=== PATIENT | male | born 1955 | race Caucasian/White ===

== ENCOUNTER 2018-04-03 14:02 | Emergency (ER) | payer OTHER, SELFPAY ==
[2018-04-03 14:08] VITALS: BP 158/97; PULSE 92; RESP 24; TEMP 37.3; O2SAT 94; BMI 24.5
[2018-04-03 14:15] VITALS: BP 191/101; PULSE 90
[2018-04-03] MEDS: NITROGLYCERIN 0.4 MG SL TAB SL (14:15)
--- NOTE | 2018-04-03 14:22 | DI.RAD.S_ITS ---
PROCEDURE: XR CHEST 1V INDICATIONS: chest pain TECHNIQUE: One view of the chest was acquired. COMPARISON: [facility], CHEST 1 VIEW, 03/21/2017, 17:07. [facility], , CHEST 2 VIEW, 07/23/2016, 12:29. FINDINGS: Surgical changes and devices: None. Lungs and pleura: No pleural effusions or pneumothorax. Lungs are clear. Mediastinum: Mediastinal contours appear normal. Heart size is normal. Bones and chest wall: No suspicious bony lesions. Overlying soft tissues appear unremarkable. IMPRESSION: Normal for age, source of current pain is not seen. Prior acromioplasty right shoulder. Prior tendon transfer Bostic right shoulder. Dictated by: Cipriano Gr M.D. on 04/03/2018 at 14:35 Approved by: Cipriano Gr M.D. on 04/03/2018 at 14:43
--- NOTE | 2018-04-03 14:27 | ED_ITS ---
HPI - Chest Pain General Chief Complaint: Chest Pain Stated Complaint: neck pain, affecting arms, cant breathe Time Seen by Provider: 04/03/18 14:21 Source: patient Mode of arrival: ambulatory Limitations: no limitations History of Present Illness HPI narrative: 63-year-old male here for evaluation of chest pain and back pain. Patient states that it started sometime this morning. He is unable to state when it actually started. Is having some shortness of breath. States the pain is in his upper back. Not radiating to his shoulders. Some nausea but no vomiting. Has not tried anything for prior to arrival. No history of cardiac disease. Related Data Home Medications Medication Instructions Recorded Confirmed atorvastatin [Lipitor] 20 mg PO HS #0 03/21/17 flecainide 100 mg PO BID #0 03/21/17 gabapentin [Neurontin] 300 mg PO Q DAY #0 03/21/17 gabapentin [Neurontin] 600 mg PO QPM #0 03/21/17 lisinopril-hydrochlorothiazide 1 tab PO QDAY #0 03/21/17 Allergies Allergy/AdvReac Type Severity Reaction Status Date / Time No Known Drug Allergies Allergy Verified 04/03/18 14:14 Review of Systems Review of Systems All systems reviewed & are unremarkable except as noted in HPI and below Constitutional Denies fever(s) and Denies malaise Cardiovascular Reports chest pain, Denies rapid heart rate, Denies palpitations and Reports dyspnea Respiratory Denies cough and Reports dyspnea Gastrointestinal Gastrointestinal: Denies abdominal pain, Reports nausea and Denies vomiting Genitourinary Denies dysuria Musculoskeletal Reports back pain, Denies myalgias and Denies arthralgias Integumentary/Breasts Denies lesions and Denies rash Endocrine Denies palpitations Hematologic/Lymphatic Denies easy bleeding and Denies easy bruising [facility] Medical History Atrial flutter (Acute) Surgical History No pertinent past surgical history (Acute) Social History Smoking Status: Current every day smoker Exam Initial Vital Signs Initial Vital Signs: Vital Signs Temperature 99.2 F 04/03/18 14:08 Pulse Rate 92 H 04/03/18 14:08 Respiratory Rate 24 04/03/18 14:08 Blood Pressure 158/97 H 04/03/18 14:08 Pulse Oximetry 94 04/03/18 14:08 Const General: cooperative and comfortable HENMT Head: normal to inspection and normocephalic Eyes Pupils: PERRL Resp Effort & Inspection: normal respiratory effort Auscultation: clear to auscultation bilaterally Cardio Rate: regular rate Rhythm: regular rhythm Pulses: radial pulses present bilaterally GI Inspection: non-distended Palpation: soft and No firm Back/Spine/Pelvis Back: No CVA tenderness Skin Lesions: no lesions Rashes: no rashes Neuro General: alert, awake and oriented x3 Extrem General: normal to inspection and capillary refill normal Psych Appearance: grossly normal and well kempt Course Orders Ordered: ED Orders 04/03/18 14:22 XR chest 1V Stat 04/03/18 14:23 EKG-12 Lead Stat 04/03/18 14:25 Complete Blood Count AUTO DIFF Stat Comprehensive Metabolic Panel Stat Partial Thromboplastin Time Stat Prothrombin Time INR Stat Troponin I Stat 04/03/18 14:43 CT angio chest abdomen Stat Heparin Sodium/Dextrose (Heparin Drip) 25,000 unit in 500 mls @ 42 mls/hr IV CONT MEHDI; Protocol Discontinued Medications Aspirin (Aspirin Chew) 324 mg PO NOW ONE Stop: 04/03/18 14:23 Last Admin: 04/03/18 14:43 Dose: 324 mg Heparin Sodium (Porcine) (Heparin) 10,500 unit 60 unit/kg (21372 unit) IV NOW ONE Stop: 04/03/18 14:47 Hydromorphone HCl (Dilaudid) 1 mg IV NOW ONE Stop: 04/03/18 14:31 Last Admin: 04/03/18 14:30 Dose: 1 mg Nitroglycerin (Nitrostat) 0.4 mg SL NOW ONE Stop: 04/03/18 14:43 Last Admin: 04/03/18 14:15 Dose: 0.4 mg Vital Signs - 8 hr 04/03/18 14:08 04/03/18 14:15 Temperature 99.2 F Pulse Rate 92 H 90 Respiratory Rate 24 Blood Pressure 158/97 H 191/101 H Pulse Oximetry 94 MDM - Chest Pain Lab Data Result diagrams: 04/03/18 14:25 04/03/18 14:25 Lab Results 04/03/18 04/03/18 Range/Units 14:25 14:25 PT 12.4 (10.1-12.7) SECONDS INR 1.1 (0.9-1.3) Sodium 141 (137-145) mmol/L Potassium 3.9 (3.4-5.1) mmol/L Chloride 102 (98-107) mmol/L Carbon Dioxide 28 (22-32) mmol/L BUN 24 H (9-20) mg/dL Creatinine 0.80 (0.66-1.25) mg/dL Estimated GFR > 60.0 (>60) mL/min BUN/Creatinine Ratio 30.0 H (6-22) Glucose 156 H (80-110) mg/dL Calcium 9.6 (8.4-10.2) mg/dL Total Bilirubin 0.6 (0.2-1.3) mg/dL AST 21 (17-59) IU/L ALT 24 (21-72) IU/L Alkaline Phosphatase 87 (38-126) U/L Total Protein 8.0 (6.3-8.2) g/dL Albumin 4.5 (3.5-5.0) g/dL Globulin 3.5 (1.7-4.1) g/dL Albumin/Globulin Ratio 1.3 (1.0-2.8) Imaging Data Chest x-ray: Attestation: I personally reviewed and interpreted this imaging study as follows: My impression: no wide mediastinum No focal consolidation Core Measures AMI core measures followed: Yes MDM Narrative Medical decision making narrative: patient with ST elevations in leads V2 V3 and V4 and T-wave inversions in lead 1 and AVF. Chest x-ray is unremarkable. Has equal bilateral blood pressures. Because of his upper back pain he was scanned for a thoracic aortic dissection. Wet read of this with the radiologist states that he does not have a dissection. He was given Dilaudid. Patient was also given aspirin. Patient was given 1 sublingual nitro. nitropaste was placed.Heparin was also started. Discussed the case with Dr Kate zamudio With a ST elevation VT activation. EKGs were faxed over to receiving facility. Patient was informed of transfer. He expressed understanding and agreement plan. Discharge Plan Departure Patient Disposition: [facility] Clinical Impression: ST elevation (STEMI) myocardial infarction Prescriptions: No Action atorvastatin [Lipitor] 20 MG tablet 20 mg PO HS Qty: 0 RF: 0 lisinopril-hydrochlorothiazide 20 MG/25 MG tablet 1 tab PO QDAY Qty: 0 RF: 0 flecainide 100 MG tablet 100 mg PO BID Qty: 0 RF: 0 gabapentin [Neurontin] 300 MG capsule 300 mg PO Q DAY Qty: 0 RF: 0 gabapentin [Neurontin] 300 MG capsule 600 mg PO QPM Qty: 0 RF: 0
[2018-04-03 14:30] VITALS: BP 161/92; PULSE 92; RESP 20; O2SAT 98
[2018-04-03] MEDS: HYDROMORPHONE 1 MG INJ IV (14:30)
[2018-04-03 14:43] LABS: INR 1.1 (0.9-1.3); Prothrombin Time 12.4 SECONDS (10.1-12.7)
[2018-04-03] MEDS: ASPIRIN 81 MG TAB 324 MG PO (14:43)
--- NOTE | 2018-04-03 14:43 | DI.CT.S_ITS ---
PROCEDURE: CT ANGIO CHEST ABDOMEN INDICATIONS: concern for TAD TECHNIQUE: Precontrast 5 mm thick sections acquired from the lung apices to the iliac crests. After the administration of intravenous contrast, 2.5 mm thick sections again acquired from the lung apices to the iliac crests. 10 mm maximum intensity projection (MIP) oblique sagittal and coronal reformats were then acquired. For radiation dose reduction, the following was used: automated exposure control. COMPARISON: None. FINDINGS: Image quality: Excellent. AORTA: Intramural hematoma: Absent. Maximum hematoma thickness: Not applicable. Focal contrast enhancement: Intramural blood pool (< 2 mm neck or imperceptible communication with aortic lumen): Absent. Ulcer-like projection (broad communication with aortic lumen > 3 mm): Absent. Dissection: Absent. Mau classification: Not applicable. Maximum aortic diameter: 3.7 cm. [If [place] A dissection, > 5.0 cm has a poorer prognosis. If [place] B dissection, > 4.0 cm has a poorer prognosis.] Periaortic hematoma: Absent. CHEST: Lungs and pleura: No acute airspace opacities. Calcified granulomas noted in the right upper lobe. No pleural effusions or pneumothorax. Central and peripheral airways are patent and normal in caliber. Mediastinum: Heart size is normal. No pericardial effusion. No mediastinal or hilar adenopathy by size criteria. Calcified right hilar lymph nodes noted compatible sequela prior granulomatous disease. Central pulmonary arteries are normal in size. Esophagus is normal in caliber. No hiatal hernias. Bones and chest wall: No axillary adenopathy by size criteria. Thyroid gland is within normal limits. No suspicious bony lesions. No vertebral body compression fractures. ABDOMEN: Vasculature: Celiac trunk and mesenteric arteries are patent. Renal arteries are also patent. Solid organs: Liver is normal in size and enhancement. Gallbladder is within normal limits. Biliary system is non dilated. Pancreas enhances normally. Spleen is normal in size and enhancement. Punctate calcifications are noted in the spleen compatible sequela prior granulomatous disease. No adrenal nodules. Both kidneys are normal in size and enhancement, without hydronephrosis. Peritoneum and bowel: No free fluid or air. Bowel loops are normal in caliber and wall thickness. Nodes and vessels: No retroperitoneal or mesenteric adenopathy by size criteria. Inferior vena cava is normal in morphology. Bones: No suspicious bony lesions. No vertebral body compression fractures. Miscellaneous: No ventral hernias. IMPRESSION: 1. No aortic dissection or aortic aneurysm. 2. Central pulmonary vasculature enhances normally with no evidence of large central pulmonary embolus. 3. No lung consolidation. No pleural effusions. Dictated by: Melissa Castillo MD, PhD on 04/03/2018 at 14:44 Approved by: Melissa Castillo MD, PhD on 04/03/2018 at 14:54
[2018-04-03 14:45] VITALS: BP 147/88; PULSE 89; RESP 16; O2SAT 92
[2018-04-03 14:45] LABS: PTT Partial Thromboplastin Tim 35 SECONDS (26.4-36.2)
[2018-04-03 14:48] LABS: Add Manual Diff / Slide Review NO; Basophils Percent Auto 0.8 % (0-2); Eosinophils Percent Auto 1.7 % (2-4); Hematocrit 52.2 % (41-53); Hemoglobin 17.8 g/dL (13.5-17.5); Lymphocytes Percent Auto 11.7 % (25-40); Mean Corpuscular Hemoglobin 31.3 PG (26-34); Mean Corpuscular Volume 92.1 fL (80-100); Monocytes Percent Auto 7.3 % (3-14); Neutrophils Absolute Auto 10200 /uL (3000-5900); Neutrophils Percent Auto 78.5 % (50-75); Platelet Count 259 X10^3/uL (150-400); Red Blood Cell Count 5.67 X10^6/uL (4.5-5.9); Red Cell Distribution Width 13.9 % (11.6-14.8)
[2018-04-03 14:49] LABS: Alanine Aminotransferase 24 IU/L (21-72); Albumin 4.5 g/dL (3.5-5.0); Albumin Globulin Ratio 1.3 (1.0-2.8); Alkaline Phosphatase 87 U/L (38-126); Aspartate Aminotransferase 21 IU/L (17-59); Bilirubin Total 0.6 mg/dL (0.2-1.3); Blood Urea Nitrogen 24 mg/dL (9-20); Calcium 9.6 mg/dL (8.4-10.2); Carbon Dioxide 28 mmol/L (22-32); Chloride 102 mmol/L (98-107); Estimated Glomerular Filt Rate > 60.0 mL/min (>60); Globulin 3.5 g/dL (1.7-4.1); Glucose 156 mg/dL (80-110); HEMOLYSIS 24 (0-50); Potassium 3.9 mmol/L (3.4-5.1); Sodium 141 mmol/L (137-145)
[2018-04-03] MEDS: HEPARIN 5,000 UNIT/ML VIAL 10500 UNIT IV (14:51)
[2018-04-03] MEDS: HEPARIN DRIP 25,000 UNIT/500 ML IV.SOLN 20 UNIT IV (14:52)
[2018-04-03 14:55] VITALS: PULSE 90; RESP 18
[2018-04-03 14:57] VITALS: BP 141/80; PULSE 90
[2018-04-03] MEDS: NITROGLYCERIN OINT 1 INCH/GM OINT...G. TOP (14:57)
[2018-04-03 15:00] LABS: Troponin I < 0.012 ng/mL (0.01-0.034)
== END 2018-04-03 14:52 | disposition short-term general hospital (02) ==
PROVIDERS: Emergency Provider Emergency Medicine; PCP Family Medicine
DX: I21.3 ST elevation (STEMI) myocardial infarction of unspecified site (principal)
CPT/HCPCS: 36591; 71045; 71275; 74175; 80053; 84484; 85025; 85610; 85730; 93005; 93010; 96374; 96375; 99283; 99291; J1170; J1644; Q9967

== ENCOUNTER → 2018-05-03 16:42 | Outpatient (CLI) | payer OTHER, SELFPAY ==
--- NOTE | 2018-05-03 | DI.MRI.S_ITS ---
PROCEDURE: MR CERVICAL SPINE WO CON INDICATIONS: Neck and bilateral shoulder pain. Loss of feeling in right hand TECHNIQUE: Noncontrast sagittal T1 spin echo and T2 fast spin echo, sagittal STIR, foraminal oblique sagittal T2 fast spin echo, and axial gradient echo or T2 fast spin echo through the cervical spine. COMPARISON: None. FINDINGS: Image quality: Excellent. Alignment and Curvature: There is normal bony alignment. Bone Marrow: Marrow demonstrates normal overall signal. Moderate reactive signal within the endplates adjacent to the C5-C6 and C6-C7 intervertebral discs. Spinal Cord: Visualized spinal cord has normal size and signal. No cerebellar tonsillar herniation. Paraspinous Soft Tissues: No paravertebral masses. Prevertebral soft tissues are normal in thickness. C2-C3: Moderate disc desiccation. Mild diffuse disc bulge. Mild bilateral facet hypertrophy. Mild canal stenosis. No foraminal stenosis. No change. C3-C4: Moderate disc desiccation. Mild diffuse disc bulge. Mild facet and uncovertebral hypertrophy. Mild canal stenosis. Mild bilateral foraminal stenosis. C4-C5: Moderate disc desiccation. Mild diffuse disc bulge. Mild facet and uncovertebral hypertrophy bilaterally. Mild canal stenosis. Mild right and moderate left foraminal stenosis. C5-C6: Severe disc height loss and desiccation. Moderate diffuse disc bulge/osteophyte. Moderate bilateral facet and uncovertebral hypertrophy, right greater than left. Moderate canal stenosis. Severe right and mild left foraminal stenosis. C6-C7: Severe disc height loss and desiccation. Moderate diffuse disc bulge/osteophyte. Mild bilateral facet and uncovertebral hypertrophy. Moderate canal stenosis. Mild right and moderate left foraminal stenosis. C7-T1: Mild disc height loss and desiccation. Mild diffuse disc bulge. Mild bilateral facet and uncovertebral hypertrophy. Mild canal stenosis. Mild bilateral foraminal stenosis. IMPRESSION: 1. Multilevel degenerative disc and facet disease, as well as uncovertebral hypertrophy. 2. Multilevel canal stenoses, worst at C4-C5 and C5-C6, where there are moderate canal stenoses present. 3. Multilevel foraminal stenoses, worst at C5-C6 on the right, where there is severe foraminal stenosis present. Dictated by: Ankur Altman M.D. on 05/04/2018 at 9:41 Approved by: Ankur Altman M.D. on 05/04/2018 at 9:50
== END ==
PROVIDERS: PCP Family Medicine; Visit Provider Orthopaedic Surgery
DX: M25.512 Pain in left shoulder (principal); M25.511 Pain in right shoulder; R20.0 Anesthesia of skin; M50.31 Other cervical disc degeneration, high cervical region; M48.02 Spinal stenosis, cervical region
CPT/HCPCS: 72141

== ENCOUNTER → 2018-06-12 09:36 | Outpatient (CLI) | payer OTHER, SELFPAY ==
[2018-06-12 11:26] LABS: Hematocrit 52.9 % (41-53); Hemoglobin 18.1 g/dL (13.5-17.5); Mean Corpuscular HGB Conc 34.2 % (30-36); Mean Corpuscular Hemoglobin 31.6 PG (26-34); Mean Corpuscular Volume 92.4 fL (80-100); Platelet Count 205 X10^3/uL (150-400); Red Blood Cell Count 5.72 X10^6/uL (4.5-5.9); Red Cell Distribution Width 14.5 % (11.6-14.8); White Blood Cell Count 12.7 X10^3/uL (4.5-11.0)
[2018-06-12 12:00] LABS: Blood Urea Nitrogen 39 mg/dL (9-20); Calcium 9.3 mg/dL (8.4-10.2); Carbon Dioxide 28 mmol/L (22-32); Chloride 98 mmol/L (98-107); Estimated Glomerular Filt Rate > 60.0 mL/min (>60); Glucose 110 mg/dL (80-110); HEMOLYSIS 25 (0-50); Potassium 4.2 mmol/L (3.4-5.1); Sodium 142 mmol/L (137-145)
== END ==
PROVIDERS: PCP Family Medicine; Visit Provider Orthopaedic Surgery
DX: Z01.818 Encounter for other preprocedural examination (principal)
CPT/HCPCS: 36415; 80048; 85027

== ENCOUNTER → 2018-06-19 16:35 | Outpatient (CLI) | payer OTHER, SELFPAY ==
[2018-06-19 17:19] LABS: Add Manual Diff / Slide Review NO; Basophils Percent Auto 1.4 % (0-2); Eosinophils Percent Auto 2.8 % (2-4); Hematocrit 50.2 % (41-53); Hemoglobin 16.9 g/dL (13.5-17.5); Lymphocytes Percent Auto 17.8 % (25-40); Mean Corpuscular HGB Conc 33.6 % (30-36); Mean Corpuscular Hemoglobin 31.1 PG (26-34); Mean Corpuscular Volume 92.5 fL (80-100); Monocytes Percent Auto 6.5 % (3-14); Neutrophils Absolute Auto 8900 /uL (1500-7000); Neutrophils Percent Auto 71.5 % (50-75); Platelet Count 220 X10^3/uL (150-400); Red Blood Cell Count 5.43 X10^6/uL (4.5-5.9); Red Cell Distribution Width 14.3 % (11.6-14.8); White Blood Cell Count 12.5 X10^3/uL (4.5-11.0)
== END ==
PROVIDERS: PCP Family Medicine; Visit Provider Orthopaedic Surgery
DX: Z01.818 Encounter for other preprocedural examination (principal)
CPT/HCPCS: 36415; 85025

== ENCOUNTER 2018-06-27 12:30 | Day surgery (SDC) | payer OTHER, SELFPAY ==
[2018-06-22 12:07] VITALS: BMI 25.2
[2018-06-27] VITALS (20 sets, daily range): BP systolic 142–194; BP diastolic 76–115; PULSE 62–74; RESP 12–18; TEMP 36.4–36.7; O2SAT 94–100; BMI 23.2
--- NOTE | 2018-06-27 | DI.RAD.S_ITS ---
PROCEDURE: XR CERVICAL SPINE 2V OR 3V INDICATIONS: ACDF C5-6, C6-7 TECHNIQUE: Fluoroscopic images were obtained during an operative procedure and submitted for interpretation following the completion of the procedure. COMPARISON: [facility], , MR CERVICAL SPINE WO CON, 05/03/2018, 17:28. FINDINGS: These fluoroscopic images were performed for intraoperative localization. On these images, artificial discs have been placed at the C5-C6 and C6-C7 levels. Please correlate with intraoperative findings. IMPRESSION: Normal intraoperative examination. Dictated by: Kamlesh Akers M.D. on 06/27/2018 at 16:48 Approved by: Kamlesh Akers M.D. on 06/27/2018 at 16:48
[2018-06-27] MEDS: LACTATED RINGERS 1,000 ML 42 ML IV ×2 (13:25→16:48)
--- NOTE | 2018-06-27 14:52 | PM.PREOP ---
Pre-operative Note Interval Note History & Physical reviewed/Exam performed by Physician: Yes Changes to H&P: No
--- NOTE | 2018-06-27 15:22 | SUR.PREOP ---
Pre-op glucose by GASOLINE PUMP INSTALLER 56 (confirmed by RN); Reported to anesthesia. Verbal order given for D50, stated he would enter it into the computer. D50 obtained to pharmacy, sent to OR with the patient per the request of the circulating RN (Rx arrived as she was taking the patient to the OR). Patient remains awake, oriented, stable on feet when he recently ambulated to the bathroom.
[2018-06-27] MEDS: CEFAZOLIN 2 GM/100 ML FROZ.PIGGY IV ×2 (15:25→22:27)
--- NOTE | 2018-06-27 15:25 | PM.OP.1 ---
Operative Date/Time/Diagnoses Date of procedure: 06/27/18 Time of procedure: 17:00 Pre-op diagnosis: Cervical disc herniation with radiculopathy Post-op diagnosis: same Procedure & Clinicians Procedure: C5-6 and C6-7 anterior diskectomy an artificial disc replacement Use of microscope Same procedure as scheduled: Yes Indications: [age] year old male with intractable pain from cervical disc herniations. They had failed conservative management and requested operative intervention. Risks and benefits of surgery were discussed and appropriate consents were obtained. Chip Applying Machine Tender: Lala Hogan Anesthesia Type: General Operative Notes Findings: None Closure Type: primary Specimen(s): none sent Implants & Drains: [place] Mobi-C artificial disc replacement Estimated Blood Loss (mL): 5 Procedure in detail: Patient was brought to the operating room and intubated on the table. A time-out was performed. Preoperative antibiotics were given. The neck was prepped and draped in the standard sterile fashion. Using a skin fold, we made a 3 cm oblique incision on the left side. We used Bovie to go through the platysma and then did a standard anterolateral blunt dissection down to the precervical fascia. Fascia was nicked and elevated up. A marker was placed and x-ray was taken for localization. We then subperiosteally elevated up the longus colli muscles. Self-retaining retractors were placed. Woodbridge pins were placed under x-ray guidance to be parallel to the endplates. We then brought in the microscope. A scalpel used to perform an annulotomy. We then used a combination of pituitaries and curettes and Kerrison to perform a complete anterior diskectomy at C6-7. We took down the PLL and used Kerrison to remove any posterior disc material and osteophytes. At the end we could from the nerve hook cephalad caudally and out the foramen and everything was opened. We distracted open with the parallel log manager. We then used the horseshoes for sizing. We then used the trials. We then inserted a 15 mm x 17 mm x 5 mm size Mobi-C artificial disc replacement under fluoroscopic guidance for positioning. The traction was released and x-ray was checked again. The counselling psychologist was removed. We then moved up to C5-6 and placed our Woodbridge pins under x-ray guidance. We again performed a complete diskectomy with Kerrisons, pituitaries, curets. We took down the PLL. We then trialed and placed another 15 mm x 17 mm x 5 mm Mobi-C artificial disc replacement, this time at C5-6. We confirmed positioning with fluoroscopy. The traction was released and x-rays were taken. The self-retaining retractors and Woodbridge pins were removed and final x-rays taken. The wound was irrigated. There was no bleeding. The carotid was beating nicely. The platysma was closed. The superficial was closed. The skin was closed. A sterile dressing was placed. They were then extubated and brought to recovery room with no complications. Complications: none Condition: stable Disposition: PACU Plan for aftercare: Overnight admission. Discharge tomorrow.
--- NOTE | 2018-06-27 15:57 | SUR.OPER ---
Supine on padded OR bed, head on gel, towel roll between shoulders, arms wrapped in gel pads and secured with draw sheet; legs uncrossed, safety belt at thigh, tape over blanket over lower legs.
[2018-06-27] MEDS: SODIUM CHLORIDE 0.9% 1,000 ML, GENTAMICIN 80 MG IRR (16:09)
[2018-06-27] MEDS: THROMBIN (BOVINE) 5,000 UNIT VIAL 5000 UNIT TOP (16:13)
[2018-06-27] MEDS: HYDROMORPHONE 2 MG INJ 0.5 MG IV ×8 (17:28→18:29)
[2018-06-27] MEDS: HYDRALAZINE 20 MG/ML VIAL 10 MG IV (17:46)
[2018-06-27] MEDS: LACTATED RINGERS 1,000 ML 125 ML IV (20:00)
[2018-06-27] MEDS: HYDROCODONE/ACET 5/325 TABLET 1 TAB PO (20:04)
[2018-06-27] MEDS: KETOROLAC 30 MG/ML VIAL IV (20:08)
--- NOTE | 2018-06-27 20:48 | PC.NURSE ---
Addendum entered by Tracey Hector R.N. 06/27/18 22:56: 2230- Pt reports pain increasing up to 7/10, medicated with 0.5mg dilaudid IVP. Next pain medication not due until 0000. Original Note: Addendum entered by Tracey Hector R.N. 06/27/18 22:24: Nursing physical assessment done and complete, admission physical assessment is duplicate. Original Note: 1930- Pt arrived to room 229 from PACU via bed. A/O x3, Ant cervical gauze drsg with small red old shadow drainage, CDI, denies headache, soft cervical collar in place. HTN- BP 173/96, 74, but down from PACU and baseline. 96-97%RA, LS clear, denies SOB. BT+ denies nausea. R hand LR @ 125. SBA to BRP to void clear yellow urine. Pain 5-6/10, medicated with norco 5mg 1 tab PO and ketorolac IVP, effective to 2/10. in room, call light in reach and bed alarm on for safety.
[2018-06-27] MEDS: DOCUSATE 100 MG CAPSULE PO (21:17)
[2018-06-27] MEDS: FLECAINIDE 100 MG TABLET PO (21:17)
[2018-06-27] MEDS: GABAPENTIN 300 MG CAPSULE PO (21:18)
[2018-06-27] MEDS: SENNOSIDES 8.6 MG TABLET 17.2 MG PO (21:18)
[2018-06-27] MEDS: HYDROMORPHONE 1 MG INJ 0.5 MG IV (22:35)
[2018-06-28] VITALS: BP 142/86; PULSE 76; RESP 18; TEMP 36.8; O2SAT 96
[2018-06-28] MEDS: HYDROCODONE/ACET 5/325 TABLET 1 TAB PO ×2 (00:11→06:44)
[2018-06-28] MEDS: LACTATED RINGERS 1,000 ML 125 ML IV (03:36)
[2018-06-28 04:04] VITALS: BP 150/84; PULSE 72; RESP 14; TEMP 36.8; O2SAT 98
[2018-06-28] MEDS: CEFAZOLIN 2 GM/100 ML FROZ.PIGGY IV (06:39)
[2018-06-28 07:22] VITALS: BP 160/88; PULSE 79; RESP 98; TEMP 37.2; O2SAT 98
--- NOTE | 2018-06-28 07:56 | PM.PNPO.1 ---
Subjective Date Patient Seen: 06/28/18 Time Patient Seen: 07:56 Interval history: He is doing well. No more arm symptoms. Pain in the neck as high as 5/10 Exam Vital Signs (past 8 hours): - 06/28/18 00:00 06/28/18 04:04 06/28/18 07:22 Temperature 98.2 F 98.2 F 98.9 F Pulse Rate 76 72 79 Respiratory Rate 18 14 98 H Blood Pressure 142/86 H 150/84 H 160/88 H Pulse Oximetry 96 98 98 Oxygen Delivery Method Room Air,CPAP Oxygen Flow Rate 0 Const Orientation: alert and oriented x3 Other: Dressing clean dry intact. 5/5 motor both upper extremities Assessment & Plan Post-op Postoperative Procedures Operation Date: 06/27/18 14:15 Actual Procedures Side Surgeon p Cervical Disc Replacement & discectomy C5-6, C6-7 Ramon Pringle MD he is doing very well. Mobilize with therapy this morning and then discharge home.
[2018-06-28 08:00] VITALS: BP 141/88; PULSE 68; RESP 16; TEMP 36.4; O2SAT 99
[2018-06-28] MEDS: DOCUSATE 100 MG CAPSULE PO (09:03)
[2018-06-28] MEDS: ATORVASTATIN 20 MG TABLET PO (09:04)
[2018-06-28] MEDS: FLECAINIDE 100 MG TABLET PO (09:04)
[2018-06-28] MEDS: LISINOPRIL 20 MG TABLET PO (09:04)
[2018-06-28] MEDS: hydroCHLOROthiazide 25 MG TABLET PO (09:04)
[2018-06-28] MEDS: ATENOLOL 50 MG TABLET 100 MG PO (09:04)
[2018-06-28] MEDS: GABAPENTIN 300 MG CAPSULE PO (09:04)
--- NOTE | 2018-06-28 09:13 | OT.IP.EVAL ---
Current Diagnoses Other cervical disc displacement, unspecified cervical region (06/27/18) Radiculopathy, cervical region (06/27/18) Surgery Performed Operation Date: 06/27/18 14:15 Actual Procedures p Cervical Disc Replacement & discectomy C5-6, C6-7 - Ramon Pringle MD Past Medical History (Last Updated 06/27/18 @ 13:39 by Lorraine Morris, RN) Afib (Acute) Atrial flutter (Acute) Chest pain (Acute) Chronic thoracic back pain (Acute) HTN (hypertension) (Acute) LBBB (left bundle branch block) (Acute) Left anterior fascicular block (LAFB) (Acute) Prolonged [place] interval (Acute) Sleep apnea with use of continuous positive airway pressure (CPAP) (Acute) Surgical History (Last Updated 06/27/18 @ 13:44 by Lorraine Morris, RN) H/O right inguinal hernia repair (Acute) History of appendectomy (Acute) History of toe surgery (Acute) History of vasectomy (Acute) No pertinent past surgical history (Acute) S/P wrist surgery (Acute) Status post cataract extraction of both eyes with insertion of intraocular lens (Acute) Status post left rotator cuff repair (Acute) Status post right rotator cuff repair (Acute) Occupational Therapy Inpatient Evaluation/Re-Eval M1 PT/OT-IP Prior Functional Status Start: 06/28/18 13:09 Freq: NEEDED Status: Active Protocol: Document 06/28/18 09:13 ASHLEY (Rec: 06/28/18 13:25 SHANNON [id number]) Medical Review Prior Functional Status Medical History Reviewed Yes Diet/Fluid Consistency Regular Communication WNL Mobility and Gait Independent without a device Activities of Daily Living and IADL's Independent but limited by neck pain and RUE/hand numbness, hand weakness Prior Functional Level (Other details) 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 Pt's unemployed adult son can assist PRN. M2 OT-IP Current Condition Start: 06/28/18 13:09 Freq: Status: Active Protocol: Document 06/28/18 09:13 PJM (Rec: 06/28/18 13:25 [facility] [id number]) Occupational Therapy Current Condition Current Condition Evaluation Date 06/28/18 Treatment Diagnosis C5-6, C6-7 ant diskectomy and artificial disc replacement Diagnosis Onset Date 06/27/18 Post Operative Precautions Cervical Spine Precautions Soft Collar for Comfort No Heavy Lifting Log Roll M3 OT- IP Subjective and Pain Start: 06/28/18 13:09 Freq: Status: Active Protocol: Document 06/28/18 09:13 PJM (Rec: 06/28/18 13:25 PJ [id number]) OT- Subjective Occupational Therapy Visit Type Type Initial Evaluation Visit Start Time 08:46 Visit Stop Time 09:13 Total Visit Minutes 27 Notes Pt's spouse here for education this session Occupational Therapy Visit Comments Patient Comments I feel pretty good. I am ready to go home. 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 in 6 weeks OT Pain Assessment Pain When Pain Assessed After Treatment Pain Present Pain Present Pain Reported Location Anterior Neck Intensity 5 Description Aching Acute Management Techniques Distraction Re-positioning Timing of Activity with Medications M4 OT- IP ADL's Start: 06/28/18 13:09 Freq: Status: Active Protocol: Document 06/28/18 09:13 PJM (Rec: 06/28/18 13:25 PJ [id number]) OT HBE-Vzch-Xvulnve General Evaluation Self-Feeding Ability Independent Comments OT Self-Feeding Comments pt reports throat is sore; pt educated re: eating softer foods OT ADL-Grooming General Evaluation Grooming Ability Independent Comments OT Grooming Comments standing at sink after education re: body mechanics OT ADL-Oral Care General Eval Oral Care Ability Independent Devices Oral Care Devices Toothbrush Comments Oral Care Comments standing at sink after education re: body mechanics OT ADL-Dressing General Eval Upper Body Dressing Ability Independent Comments OT Dressing Comments pt completed dressing in street clothes including socks and shoes prior to therapist' s arrival OT ADL-Toileting General Evaluation Toileting Ability Independent Comments OT Toileting Comments by pt report OT ADL-Bathing Comments OT Bathing Comments pt declines to shower here; provided education to pt/ re: methods for keeping incision dry M5 OT- IP IADL's Start: 06/28/18 13:09 Freq: Status: Active Protocol: Document 06/28/18 09:13 PJM (Rec: 06/28/18 13:25 PJ [id number]) OT-Instrumental Activities of Daily Living Deficits IADL Deficits Identified Deficits Home Safety Awareness Awareness of Need for Assistance at Home Good Awareness Ability to Problem Solve Emergency Able to Problem Solve Situations Medication Management Medication Management No Deficits Identified Money Management Money Management No Deficits Identified Meal Preparation Meal Preparation Caregiver Provides Assist Meal Preparation Comments family can assist PRN Squeegee Tender Squeegee Tender Caregiver Provides Assist Squeegee Tender Comments family can assist PRN Driving Driving Caregiver Provides Assist Driving Comments family to assist until pt able M6 OT- IP Functional Cognition Start: 06/28/18 13:09 Freq: Status: Active Protocol: Document 06/28/18 09:13 PJ (Rec: 06/28/18 13:25 [facility] [id number]) Cognitive Factors Limiting Selfcare Function Cognitive Ability Level of Alertness Alert Patient Orientation Name Age Birthday Month Date Year Day of Week Place Situation Attention Span Ability Capable of Focused Attention Capable of Sustained Attention Ability to Follow Commands Able to Follow One Step Commands Able to Follow Multi-Step Commands Memory Description No Deficits Noted Safety Awareness No Deficits Noted Executive Function Ability No Deficits Noted Cognitive Comments Cognitive Assessment Comments cognition appears WNL; pt verbalizes and demo's understanding of C spine precautions OT- Vision and Hearing OT- Hearing Assessment OT- Hearing Assessment WFL OT- Vision Assessment Visual Acuity WFL Glasses All The Time Vision Assessment Comments Pt denies any recent vision changes M7 OT- IP Mobility and Balance Start: 06/28/18 13:09 Freq: Status: Active Protocol: Document 06/28/18 09:13 PJ (Rec: 06/28/18 13:25 [facility] [id number]) OT-Transfer Assessment Sit to and From Stand Sit to and from Stand Independent Transfers Transfer Ability Independent Technique Transfer Destination Chair Transfer Technique Stand Step Pivot Devices Transfer Assistive Devices None Comments Mobility Comments Pt up in room ad kacey without a device and no loss of balance noted. OT- Gait Assessment Gait Gait Assistance Required: Independent Distance (Feet) 500 Assistive Devices Assistive Device None Comments Gait Ability Comments Pt ambulated from Room 229 to stairs and back independently. Pt able to do 3 stairs with rail, as per home set up with no loss of balance noted. OT- Balance Assessment Sitting Balance and Reactions Static Sitting Balance Ability Normal Dynamic Sitting Balance Ability Normal Standing Balance and Reactions Static Standing Balance Ability Normal Dynamic Standing Balance Ability Good M8 OT- IP Objective Assessments Start: 06/28/18 13:09 Freq: Status: Active Protocol: Document 06/28/18 09:13 PJM (Rec: 06/28/18 13:25 PJ [id number]) OT Gross Range of Motion Upper Extremity Range of Motion Assessment Within Functional Limits OT Strength Upper Extremity Strength Assessment Right Impaired Hand R intrinsics 4/5 w/ R thenar atrophy noted(note pt has old wrist injuries) Hand Block Greaser Strength Hand Dominance Left OT- Coordination Assessment Comments Coordination Comments BUE WFL OT-Muscle Tone Assessment Muscle Tone WNL Yes OT Sensation Assessment Comments Summary Comments Pt reports episodes of RUE/ hand falling asleep, especially in digits 1-4 (not 5). Edema Edema Absent M9 OT- IP Assessment and Plan Start: 06/28/18 13:09 Freq: Status: Active Protocol: Document 06/28/18 09:13 PJM (Rec: 06/28/18 13:25 PJ [id number]) OT Summary Assessment and Plan Potential Rehabilitation Potential Excellent Analytic Complexity at Evaluation Low Summary Progress Towards Goals Safe For Discharge Assessment Summary Low complexity OT assessment and all OT education completed today with emphasis on C spine precautions. Pt independent with all self care and functional mobility in room/hallway, and up-dpwn 3 stairs, without a device. /son can assist pt PRN with hair washing and IADLS. Pt plans to discharge home today. No further OT services needed. Frequency of Treatment Frequency Of Treatment Discharge Recommendations OT Discharge Recommendations Home with Assistance
--- NOTE | 2018-06-28 09:35 | PC.NURSE ---
Pt dressing to anterior neck is cdi with soft caller in place.
== END 2018-06-28 09:35 | disposition home or self-care (01) ==
LOC: OR 12:37 → AC 19:56
PROVIDERS: PCP Family Medicine; Visit Provider Orthopaedic Surgery
PROC: (CPT 22856; principal; 2018-06-27 14:15)
DX: M50.122 Cervical disc disorder at C5-C6 level with radiculopathy (principal); I10 Essential (primary) hypertension; I48.92 Unspecified atrial flutter; F17.210 Nicotine dependence, cigarettes, uncomplicated
CPT/HCPCS: 22856; 22858; 72040; 76000; 97165; 97535; C1776; J0330; J0360; J0690; J1100; J1170; J1885; J2704; J2765; J3010

== ENCOUNTER 2023-05-10 12:18 | Inpatient (IN) | payer MEDICARE, OTHER, SELFPAY ==
[2018-06-27 20:10] VITALS: BMI 23.2
[2023-05-10] VITALS (31 sets, daily range): BP systolic 121–195; BP diastolic 59–119; PULSE 64–117; RESP 18–36; TEMP 35.9–37.1; O2SAT 92–98; BMI 21.4
--- NOTE | 2023-05-10 12:38 | DI.RAD.S_ITS ---
PROCEDURE: XR CHEST 1V INDICATIONS: Shortness of breath TECHNIQUE: One view of the chest was acquired. COMPARISON: [facility], CR, XR CHEST 1V, 04/03/2018, 14:25. FINDINGS: Surgical changes and devices: None. Lungs and pleura: Left basilar atelectasis and or infiltrate. Mediastinum: Mediastinal contours appear normal. Heart size is normal. Atherosclerotic vascular calcification noted in the aortic arch. Bones and chest wall: Suture anchors noted in the right humeral head IMPRESSION: Mild left basilar atelectasis and or infiltrate Approved by: Loc Prince M.D. on 05/10/2023 at 13:14
--- NOTE | 2023-05-10 12:43 | ED_ITS ---
HPI - SOB/Dyspnea General Chief Complaint: Shortness of Breath/Dyspnea Stated Complaint: SOB/Cough Time Seen by Provider: 05/10/23 12:36 Source: patient, family and EMS Mode of arrival: EMS Limitations: no limitations History of Present Illness HPI Narrative: 68-year-old male with history of chronic tobacco abuse, atrial fibrillation on flecainide, hypertension, dyslipidemia he is not on any anticoagulation. Patient presents with shortness of breath that has been going on for about 2 weeks was starting to improve a little bit and got significantly worse over this past 2 or 3 days. Patient states he is had very low-grade fevers 99 F at home, he denies chest pain or pressure accept after he moved to bed and started have some increased lower back pain. But denies any pain in his upper chest. Increasing shortness of breath, productive cough he states he has not looked to see what color it is but has not appreciate any blood. Patient denies vomiting but has been nauseated. He denies diarrhea or constipation, no urinary symptoms. Station states no new swelling in extremities. He denies any drug allergies. Denies any recent surgeries. He does smoke regularly. Related Data Home Medications Medication Instructions Recorded Confirmed atorvastatin 20 mg tablet (Lipitor) 20 mg PO DAILY ##0 03/21/17 05/10/23 gabapentin 300 mg capsule 300 mg PO TID ##0 03/21/17 05/10/23 (Neurontin) lisinopril 20 1 tab PO QDAY ##0 03/21/17 05/10/23 mg-hydrochlorothiazide 25 mg tablet atenolol 100 mg tablet 100 mg PO DAILY 04/03/18 05/10/23 flecainide 100 mg tablet 100 mg PO BID 06/21/18 05/10/23 Previous Rx's Medication Instructions Recorded hydrocodone 5 mg-acetaminophen 325 See Rx Instructions .Route 06/28/18 mg tablet .COMPLEX PRN Pain, Severe (7-10) #25 tabs naproxen 250 mg tablet 500 mg (2 x 250 mg) PO BIDWM #60 06/28/18 tabs Allergies Allergy/AdvReac Type Severity Reaction Status Date / Time No Known Drug Allergies Allergy Verified 06/27/18 13:39 Review of Systems Review of Systems ROS Unobtainable: All systems reviewed & are unremarkable except as noted in HPI and below Patient History Medical History Sleep apnea with use of continuous positive airway pressure (CPAP) HTN (hypertension) Chronic thoracic back pain Left anterior fascicular block (LAFB) Prolonged AR interval LBBB (left bundle branch block) Chest pain Afib Atrial flutter Surgical History Status post cataract extraction of both eyes with insertion of intraocular lens History of vasectomy Status post left rotator cuff repair Status post right rotator cuff repair H/O right inguinal hernia repair History of appendectomy History of toe surgery S/P wrist surgery No pertinent past surgical history Social History household members: spouse and children Smoking Status: Current every day smoker alcohol intake: current Smoking Status: Current every day smoker alcohol intake frequency: holidays/special occasions only Substance Use Type: marijuana Exam Narrative Exam Narrative: GEN: Elderly appearing male, alert and oriented x 3, patient appears to be in moderate distress. HEENT: Atraumatic, pupils are equal round reactive to light, extraocular movements are intact, nares are clear, there is no conjunctival pallor. Throat is clear without any exudates, erythema, tonsillar enlargement or uvular deviation HEART: Regular rate and rhythm without murmur, clicks, rubs. . LUNGS:Lungs decreased bilaterally, mild wheeze in the bases, no rhonchi. Patient does have a wet harsh cough, no crackles, chest moves symmetrically. Positive for tachypnea. Speaks in 4-5 word sentences. ABD:bowel sounds normal, soft, non-tender, no guarding, rebound, rigidity, no masses noted, no hepatosplenomegaly :No CVA tenderness MSCL: Non-tender, no muscle atrophy, muscles strength 5/5 upper and lower extremities, full range of motion. NEURO:CN 2-12 intact, sensation normal Initial Vital Signs Initial Vital Signs: Vital Signs Pulse Rate 117 H 05/10/23 12:27 Respiratory Rate 32 H 05/10/23 12:27 Pulse Oximetry 96 05/10/23 12:27 Oxygen Delivery Method Nasal Cannula 05/10/23 12:27 Oxygen Flow Rate 4 05/10/23 12:27 Course Orders Ordered: Acetaminophen (Acetaminophen 325 Mg Tablet) 650 mg PO Q6H PRN PRN Reason: Fever/Mild Pain (1-3) Hydrocodone Bitart/Acetaminophen (Hydrocodone/Acet 5/325 Tablet) 1 tab PO Q4HR PRN PRN Reason: Pain, Moderate (4-6) Last Admin: 05/10/23 22:27 Dose: 1 tab Documented By: CT Hydrocodone Bitart/Acetaminophen (Hydrocodone/Acet 5/325 Tablet) 2 tab PO Q4HR PRN PRN Reason: Pain, Severe (7-10) Dexamethasone (Dexamethasone 10 Mg/Ml Vial) 6 mg IV DAILY COUNTS INCLUDE 234 BEDS AT THE [facility] Enoxaparin Sodium (Enoxaparin 40 Mg/0.4 Ml Syringe) 40 mg SUBCUT DAILY COUNTS INCLUDE 234 BEDS AT THE [facility] Flecainide Acetate (Flecainide 100 Mg Tablet) 100 mg PO BID COUNTS INCLUDE 234 BEDS AT THE [facility] Last Admin: 05/10/23 22:27 Dose: 100 mg Documented By: CT Gabapentin (Gabapentin 300 Mg Capsule) 300 mg PO TID COUNTS INCLUDE 234 BEDS AT THE [facility] Last Admin: 05/10/23 22:26 Dose: 300 mg Documented By: CT Ceftriaxone Sodium 1,000 mg/ (Sodium Chloride) 100 mls @ 200 mls/hr IV Q24H COUNTS INCLUDE 234 BEDS AT THE [facility] Azithromycin 500 mg/ Dextrose 250 mls @ 250 mls/hr IV Q24H COUNTS INCLUDE 234 BEDS AT THE [facility] Remdesivir 100 mg/ Sodium (Chloride) 250 mls @ 250 mls/hr IV DAILY COUNTS INCLUDE 234 BEDS AT THE [facility] Stop: 05/14/23 09:59 Discontinued Medications Hydrocodone Bitart/Acetaminophen (Hydrocodone/Acet 5/325 Tablet) 0 tab PO .COMPLEX PRN PRN Reason: Pain, Severe (7-10) Albuterol/Ipratropium (Albuterol/Ipratropium 3 Ml Ampul) 3 ml INH NOW ONE Stop: 05/10/23 12:42 Last Admin: 05/10/23 12:47 Dose: 3 ml Documented By: HM Gabapentin (Gabapentin 300 Mg Capsule) 300 mg PO TID COUNTS INCLUDE 234 BEDS AT THE [facility] Ceftriaxone Sodium 2,000 mg/ (Sodium Chloride) 100 mls @ 200 mls/hr IV NOW ONE Stop: 05/10/23 14:36 Last Infusion: 05/10/23 15:25 Dose: Infused Documented By: Admin: 05/10/23 14:50 Dose: 200 mls/hr Documented By: KM Azithromycin 500 mg/ Dextrose 250 mls @ 250 mls/hr IV NOW ONE Stop: 05/10/23 14:36 Last Infusion: 05/10/23 16:34 Dose: Infused Documented By: Admin: 05/10/23 15:24 Dose: 250 mls/hr Documented By: MPO Remdesivir 200 mg/ Sodium (Chloride) 250 mls @ 250 mls/hr IV NOW ONE Stop: 05/10/23 19:10 Last Admin: 05/10/23 19:03 Dose: Not Given Documented By: CT Remdesivir 200 mg/ Sodium (Chloride) 250 mls @ 250 mls/hr IV NOW ONE Stop: 05/10/23 22:59 Last Admin: 05/10/23 22:27 Dose: 250 mls/hr Documented By: CT Methylprednisolone (Methylprednisolone 125 Mg/2 Ml Vial) 125 mg IV NOW ONE Stop: 05/10/23 12:43 Last Admin: 05/10/23 12:48 Dose: 125 mg Documented By: EARLE Morphine Sulfate (Morphine 4 Mg/Ml Inj) 4 mg IM NOW ONE Stop: 05/10/23 13:50 Last Admin: 05/10/23 13:54 Dose: Not Given Documented By: EARLE Morphine Sulfate (Morphine 4 Mg/Ml Inj) 4 mg IV NOW ONE Stop: 05/10/23 13:54 Last Admin: 05/10/23 13:54 Dose: 4 mg Documented By: EARLE Vital Signs Vital signs: Vital Signs - 8 hr 05/10/23 12:27 05/10/23 12:29 05/10/23 12:30 Temperature 98.8 F Pulse Rate 117 H 98 H 98 H Respiratory Rate 32 H 31 H 33 H Blood Pressure 147/72 H Pulse Oximetry 96 96 95 Oxygen Delivery Method Nasal Cannula Nasal Cannula Oxygen Flow Rate 4 4 05/10/23 12:31 05/10/23 12:31 05/10/23 12:45 Temperature Pulse Rate 103 H Respiratory Rate 30 H Blood Pressure 147/72 H Pulse Oximetry 96 95 Oxygen Delivery Method Oxygen Flow Rate 05/10/23 13:00 05/10/23 13:01 05/10/23 13:01 Temperature Pulse Rate 95 H 84 102 H Respiratory Rate 30 H 18 31 H Blood Pressure Pulse Oximetry 94 94 94 Oxygen Delivery Method Nasal Cannula Oxygen Flow Rate 4 05/10/23 13:01 05/10/23 13:15 05/10/23 13:30 Temperature Pulse Rate 97 H 101 H Respiratory Rate 33 H 34 H Blood Pressure 157/76 H Pulse Oximetry 94 94 Oxygen Delivery Method Nasal Cannula Oxygen Flow Rate 4 05/10/23 13:31 05/10/23 13:31 05/10/23 13:45 Temperature Pulse Rate 99 H 101 H Respiratory Rate 36 H 28 H Blood Pressure 195/119 H Pulse Oximetry 94 94 Oxygen Delivery Method Oxygen Flow Rate 05/10/23 14:00 05/10/23 14:01 05/10/23 14:01 Temperature Pulse Rate 90 89 Respiratory Rate 29 H 28 H Blood Pressure 121/64 Pulse Oximetry 94 95 Oxygen Delivery Method Nasal Cannula Oxygen Flow Rate 4 05/10/23 14:15 05/10/23 14:30 05/10/23 14:30 Temperature Pulse Rate 90 91 H Respiratory Rate 25 H 21 Blood Pressure 127/59 L Pulse Oximetry 95 98 Oxygen Delivery Method Nasal Cannula Oxygen Flow Rate 4 05/10/23 14:47 05/10/23 15:00 05/10/23 15:15 Temperature Pulse Rate 88 86 77 Respiratory Rate 30 H 29 H 25 H Blood Pressure Pulse Oximetry 97 95 95 Oxygen Delivery Method Nasal Cannula Oxygen Flow Rate 4 05/10/23 15:30 05/10/23 15:45 05/10/23 16:00 Temperature Pulse Rate 81 76 68 Respiratory Rate 24 22 23 Blood Pressure Pulse Oximetry 95 96 96 Oxygen Delivery Method Nasal Cannula Oxygen Flow Rate 4 05/10/23 16:15 05/10/23 16:30 05/10/23 16:32 Temperature Pulse Rate 68 76 76 Respiratory Rate 22 25 H 26 H Blood Pressure 128/78 Pulse Oximetry 97 98 97 Oxygen Delivery Method Nasal Cannula Oxygen Flow Rate 4 05/10/23 16:32 05/10/23 16:45 Temperature Pulse Rate 73 Respiratory Rate 24 Blood Pressure 128/78 Pulse Oximetry 97 Oxygen Delivery Method Oxygen Flow Rate MDM - SOB/Dyspnea Lab Data 05/11/23 05:34 05/11/23 05:34 Labs: Lab Results 05/10/23 05/10/23 05/10/23 Range/Units 12:28 12:35 13:25 WBC 21.1 H (4.5-11.0) X10^3/uL RBC 5.77 (4.5-5.9) X10^6/uL Hgb 17.8 H (13.5-17.5) g/dL Hct 51.6 (41-53) % MCV 89.5 (80-100) fL MCH 30.8 (26-34) PG MCHC 34.4 (30-36) % RDW 14.0 (11.6-14.8) % Plt Count 230 (150-400) X10^3/uL Neut % (Auto) 90.2 H (50-75) % Lymph % (Auto) 1.6 L (25-40) % [place] % (Auto) 8.0 (3-14) % Eos % (Auto) 0.1 L (2-4) % Baso % (Auto) 0.1 (0-2) % Neut # (Auto) 99127 H (7883-2870) /uL Lymph # (Auto) 300 L (5930-0308) /uL [place] # (Auto) 1700 H (0-900) /uL Eos # (Auto) 0 (0-450) /uL Baso # (Auto) 0 (0-100) /uL PT 18.7 H (10.1-12.7) SECONDS INR 1.6 H (0.9-1.3) Sodium 128 L (137-145) mmol/L Potassium 3.5 (3.4-5.1) mmol/L Chloride 96 L (98-107) mmol/L Carbon Dioxide 26 (22-32) mmol/L BUN 50 H (9-20) mg/dL Creatinine 0.75 (0.66-1.25) mg/dL Estimated GFR > 60 (>60) mL/min BUN/Creatinine Ratio 66.7 H (6-22) Glucose 128 H (80-110) mg/dL Lactate 1.7 (0.7-2.1) mmol/L Calcium 8.5 (8.4-10.2) mg/dL Total Bilirubin 1.9 H (0.2-1.3) mg/dL AST 28 (17-59) IU/L ALT 18 (<50) IU/L Alkaline Phosphatase 87 (38-126) U/L Total Creatine Kinase 42 L (55-170) U/L Troponin I 0.065 H Cancelled (0.01-0.034) ng/mL NT-Pro-B Natriuret Pep 1290 H (<125) pg/mL Total Protein 6.2 L (6.3-8.2) g/dL Albumin 2.8 L (3.5-5.0) g/dL Globulin 3.4 (1.7-4.1) g/dL Albumin/Globulin Ratio 0.8 L (1.0-2.8) Urine Color Yellow Urine Appearance Clear Urine pH 5.5 (4.5-8.0) Ur Specific [place] 1.020 (1.000-1.035) Urine Protein 1+ H (Negative) Urine Glucose (UA) Negative (Negative) g/dL Urine Ketones Negative (NEGATIVE) Urine Occult Blood Negative (Negative) Urine Nitrate Positive H (Negative) Urine Bilirubin 1+ H (NEGATIVE) Ur Bilirubin Confirm Negative (Negative) Urine Urobilinogen 2.0 H (0.2) E.U./dL Ur Leukocyte Esterase Negative (NEGATIVE) Urine RBC None seen (0-5/HPF) Urine WBC None seen (0-5/HPF) Ur Squamous Epith Cells 1-5 /hpf (0-5/HPF) Urine Bacteria Moderate (10-30) H (None) Ur Culture Indicated? Cult not indicated Chlamy pneumoniae PCR Not detected (Not Detect) Adenovirus (PCR) Not detected (Not Detect) B.parapertussis DNA PCR Not detected (Not Detecte) Coronavirus OC43 (PCR) Not detected (Not Detect) Coronavirus HKU1 (PCR) Not detected (Not Detect) Coronavirus 229E (PCR) Not detected (Not Detect) SARS-CoV-2 (PCR) Detected H (Not Detecte) Coronavirus NL63 (PCR) Not detected (Not Detect) Human Metapneumovir PCR Not detected (Not Detect) Influenza Type A (PCR) Not detected (Not Detect) Influenza Type B (PCR) Not detected (Not Detect) M. pneumoniae (PCR) Not detected (Not Detect) Parainfluenza 1 (PCR) Not detected (Not Detect) Parainfluenza 2 (PCR) Not detected (Not Detect) Parainfluenza 3 (PCR) Not detected (Not Detect) Parainfluenza 4 (PCR) Not detected (Not Detect) RSV (PCR) Not detected (Not Detect) Entero/Rhino (PCR) Not detected (Not Detect) 05/10/23 Range/Units 14:31 WBC (4.5-11.0) X10^3/uL RBC (4.5-5.9) X10^6/uL Hgb (13.5-17.5) g/dL Hct (41-53) % MCV (80-100) fL MCH (26-34) PG MCHC (30-36) % RDW (11.6-14.8) % Plt Count (150-400) X10^3/uL Neut % (Auto) (50-75) % Lymph % (Auto) (25-40) % [place] % (Auto) (3-14) % Eos % (Auto) (2-4) % Baso % (Auto) (0-2) % Neut # (Auto) (6661-0481) /uL Lymph # (Auto) (6833-7408) /uL [place] # (Auto) (0-900) /uL Eos # (Auto) (0-450) /uL Baso # (Auto) (0-100) /uL PT (10.1-12.7) SECONDS INR (0.9-1.3) Sodium (137-145) mmol/L Potassium (3.4-5.1) mmol/L Chloride (98-107) mmol/L Carbon Dioxide (22-32) mmol/L BUN (9-20) mg/dL Creatinine (0.66-1.25) mg/dL Estimated GFR (>60) mL/min BUN/Creatinine Ratio (6-22) Glucose (80-110) mg/dL Lactate (0.7-2.1) mmol/L Calcium (8.4-10.2) mg/dL Total Bilirubin (0.2-1.3) mg/dL AST (17-59) IU/L ALT (<50) IU/L Alkaline Phosphatase (38-126) U/L Total Creatine Kinase (55-170) U/L Troponin I 0.067 H (0.01-0.034) ng/mL NT-Pro-B Natriuret Pep (<125) pg/mL Total Protein (6.3-8.2) g/dL Albumin (3.5-5.0) g/dL Globulin (1.7-4.1) g/dL Albumin/Globulin Ratio (1.0-2.8) Urine Color Urine Appearance Urine pH (4.5-8.0) Ur Specific [place] (1.000-1.035) Urine Protein (Negative) Urine Glucose (UA) (Negative) g/dL Urine Ketones (NEGATIVE) Urine Occult Blood (Negative) Urine Nitrate (Negative) Urine Bilirubin (NEGATIVE) Ur Bilirubin Confirm (Negative) Urine Urobilinogen (0.2) E.U./dL Ur Leukocyte Esterase (NEGATIVE) Urine RBC (0-5/HPF) Urine WBC (0-5/HPF) Ur Squamous Epith Cells (0-5/HPF) Urine Bacteria (None) Ur Culture Indicated? Chlamy pneumoniae PCR (Not Detect) Adenovirus (PCR) (Not Detect) B.parapertussis DNA PCR (Not Detecte) Coronavirus OC43 (PCR) (Not Detect) Coronavirus HKU1 (PCR) (Not Detect) Coronavirus 229E (PCR) (Not Detect) SARS-CoV-2 (PCR) (Not Detecte) Coronavirus NL63 (PCR) (Not Detect) Human Metapneumovir PCR (Not Detect) Influenza Type A (PCR) (Not Detect) Influenza Type B (PCR) (Not Detect) M. pneumoniae (PCR) (Not Detect) Parainfluenza 1 (PCR) (Not Detect) Parainfluenza 2 (PCR) (Not Detect) Parainfluenza 3 (PCR) (Not Detect) Parainfluenza 4 (PCR) (Not Detect) RSV (PCR) (Not Detect) Entero/Rhino (PCR) (Not Detect) Imaging Data Chest x-ray: Radiologist's Impression: Close Chest X-Ray (Signed) Loc Prince - 05/10/23 Cardiac Stress Test Report 06/27/18 Cervical Spine X-Ray (Signed) Kamlesh Akers - 06/27/18 Cervical Spine MRI (Signed) Ankur Altman - 05/03/18 Outside DI 04/04/18 Chest/Abdomen CTA (Signed) Melissa Castillo - 04/03/18 Chest X-Ray (Signed) Cipriano Gr - 04/03/18 Launch?[address] [address] XRay Report Signed Patient: Felix Khalil MR#: [id number] : 1955 Acct:[id number] Age/Sex: 68 / M Date of Service: 05/10/23 Loc: ED Accession Number: [id number] Procedure: XR chest 1V Ordering Provider: Munira Spencer D.O. PROCEDURE: XR CHEST 1V INDICATIONS: Shortness of breath TECHNIQUE: One view of the chest was acquired. COMPARISON: [facility], , XR CHEST 1V, 04/03/2018, 14:25. FINDINGS: Surgical changes and devices: None. Lungs and pleura: Left basilar atelectasis and or infiltrate. Mediastinum: Mediastinal contours appear normal. Heart size is normal. Atherosclerotic vascular calcification noted in the aortic arch. Bones and chest wall: Suture anchors noted in the right humeral head IMPRESSION: Mild left basilar atelectasis and or infiltrate Approved by: Loc Prince M.D. on 05/10/2023 at 13:14 CT scan - chest: Radiologist's Impression: [place] [address] CT Scan Report Signed Patient: Felix Khalil MR#: [id number] : 1955 Acct:[id number] Age/Sex: 68 / M Date of Service: 05/10/23 Loc: ED Accession Number: [id number] Procedure: CT angio chest PE protocol Ordering Provider: Munira Spencer D.O. PROCEDURE: CT ANGIO CHEST PE PROTOCOL INDICATIONS: sob, chest pain, +covid TECHNIQUE: After the administration of intravenous contrast, 2 mm thick sections acquired from the pulmonary apices to the posterior costophrenic angles. 3-dimensional maximum intensity projection (MIP) coronal and sagittal reformats were then acquired through the thorax. For radiation dose reduction, the following was used: automated exposure control, adjustment of mA and/or kV according to patient size. COMPARISON: None. FINDINGS: Image quality: Diagnostic. Pulmonary arteries: Pulmonary arteries are normal in size, and demonstrate no intraluminal filling defects to suggest central pulmonary embolism. Lungs and pleura: There is moderate centrilobular emphysema with an apical predominance. The dense airspace opacities are present within the dependent aspect of the bilateral lower lobes. These are more confluent on the left than on the right. Scattered airspace opacities are also present within the posterior lingula. Calcified granulomas are present within the right upper lobe. Mediastinum: Heart size is normal, without pericardial effusion. No mediastinal or hilar adenopathy. There are calcified right hilar lymph nodes. Thoracic aorta is normal in caliber and enhancement. Scattered atheromatous calcifications are present within the aortic arch. Esophagus is normal in caliber, without hiatal hernia. Bones and chest wall: No suspicious bony lesions. Ribs and thoracic spine appear intact throughout. No axillary or supraclavicular adenopathy. No thyroid nodules which require sonographic follow up, per consensus guidelines. Abdomen: Visualized upper abdominal solid organs appear normal in the early arterial phase of enhancement. IMPRESSION: 1. No acute pulmonary embolus. 2. Dependent, consolidative radiopacities at the lung bases suspicious for multifocal aspiration pneumonia. Short interval followup is recommended with resolution of the patient's symptoms to ensure there is no underlying pulmonary pathology. Dictated by: Kimberly Costa M.D. on 05/10/2023 at 14:57 Approved by: Kimberly Costa M.D. on 05/10/2023 at 15:03 ECG Data Attestation: I personally reviewed and interpreted this ECG as follows: Interpretation: Atrial fibrillation rate of 93, QRS of [address] No [address] elevation or depression noted irregularly irregular consistent with AFib. Incomplete right bundle-branch. Nonspecific change. EKG 2. AFib 96 rate, QRS of [address] No acute [address] elevation or depression noted nonspecific change with likely motion artifact in V5 6. MDM Narrative Medical decision making narrative: 68-year-old male presents with tachypnea tachycardia, hypoxia requiring up to 4 L nasal cannula, not hypotensive or febrile but said use respiratory respiratory infection. Patient initially did not have any chest pain but did develop some here in the department received morphine which helpful this appear to be AFib but without consistent RVR heart rates improved into the 90s. Had 1 DuoNeb without much improvement. Patient was not really very wheezy somewhat decreased on chest x-ray patient shows some mild change or infiltrate. Patient has a white count 21, hemoglobin slightly elevated normal platelets. Sodium is 128 potassium 3 5 CO2 is 26 with a BUN of 50 and a creatinine of 0.75, troponin is 0.065 slightly trended upwards 2.0 6 7 held off on fluids BNP is 12 90 but there was concern for possible fluid overload so did not give a 30 cc/kilos bolus and does appear to have some mild CHF. Patient is COVID positive on his respiratory panel. Based on this patient had CT angio which does not show pulmonary emboli but does show some multifocal pneumonia. Was covered with Rocephin and azithromycin. Attempting to wean down O2 but unsuccessful. Patient is still requiring 3-4 L regularly Spoke with hospitalist Dr. Wolf. Accepts for inpatient admission. Discharge Plan Departure Patient Disposition: Admitted As Inpatient Clinical Impression: COVID-19 virus infection, Acute hypoxic respiratory failure, Pneumonia Admit Date/Time: 05/10/23 16:48 Admit Provider: Albert Wolf
[2023-05-10 12:46] LABS: Add Manual Diff / Slide Review NO; Basophils Absolute Auto 0 /uL (0-100); Basophils Percent Auto 0.1 % (0-2); Eosinophils Absolute Auto 0 /uL (0-450); Eosinophils Percent Auto 0.1 % (2-4); Hematocrit 51.6 % (41-53); Hemoglobin 17.8 g/dL (13.5-17.5); Lymphocytes Absolute Auto 300 /uL (1100-4500); Lymphocytes Percent Auto 1.6 % (25-40); Mean Corpuscular HGB Conc 34.4 % (30-36); Mean Corpuscular Hemoglobin 30.8 PG (26-34); Mean Corpuscular Volume 89.5 fL (80-100); Monocytes Absolute Auto 1700 /uL (0-900); Neutrophils Absolute Auto 19000 /uL (1500-7000); Neutrophils Percent Auto 90.2 % (50-75); Platelet Count 230 X10^3/uL (150-400); Red Blood Cell Count 5.77 X10^6/uL (4.5-5.9); White Blood Cell Count 21.1 X10^3/uL (4.5-11.0)
[2023-05-10] MEDS: ALBUTEROL/IPRATROPIUM 3 ML AMPUL INH (12:47)
[2023-05-10] MEDS: methylPREDNISolone 125 MG/2 ML VIAL IV (12:48)
[2023-05-10 12:52] LABS: INR 1.6 (0.9-1.3); Prothrombin Time 18.7 SECONDS (10.1-12.7)
[2023-05-10 12:56] LABS: Alanine Aminotransferase 18 IU/L (<50); Albumin 2.8 g/dL (3.5-5.0); Albumin Globulin Ratio 0.8 (1.0-2.8); Alkaline Phosphatase 87 U/L (38-126); Aspartate Aminotransferase 28 IU/L (17-59); BUN Creatinine Ratio 66.7 (6-22); Bilirubin Total 1.9 mg/dL (0.2-1.3); Blood Urea Nitrogen 50 mg/dL (9-20); Calcium 8.5 mg/dL (8.4-10.2); Carbon Dioxide 26 mmol/L (22-32); Chloride 96 mmol/L (98-107); Estimated Glomerular Filt Rate > 60 mL/min (>60); Globulin 3.4 g/dL (1.7-4.1); Glucose 128 mg/dL (80-110); HEMOLYSIS 21 (0-50); Lactate (Lactic Acid) 1.7 mmol/L (0.7-2.1); Potassium 3.5 mmol/L (3.4-5.1); Sodium 128 mmol/L (137-145); Total Protein 6.2 g/dL (6.3-8.2)
[2023-05-10 13:20] LABS: Creatine Kinase 42 U/L (55-170)
[2023-05-10 13:30] LABS: NT-proBNP (BNP-Adult 18+) 1290 pg/mL (<125)
--- NOTE | 2023-05-10 13:32 | PC.NURSE ---
Pt c/o increased shortness of breath, chest pain. Dr. Spencer aware. EKG repeat ordered.
[2023-05-10 13:38] LABS: Appearance Urine UA CLEAR; Bilirubin Urine UA 1+ (NEGATIVE); Color Urine UA YELLOW; Glucose Urine UA NEGATIVE (Negative); Ketones Urine UA NEGATIVE (NEGATIVE); Leukocyte Esterase Urine UA NEGATIVE (NEGATIVE); Nitrite Urine UA POSITIVE (Negative); Occult Blood Urine UA NEGATIVE (Negative); Protein Urine UA 1+ (Negative); pH Urine UA 5.5 (4.5-8.0)
[2023-05-10 13:45] LABS: Adenovirus Not Detected (Not Detect); B. parapertussis Not Detected (Not Detecte); Bordetella pertussis Not Detected (Not Detect); Chlamydophila pneumoniae Not Detected (Not Detect); Coronavirus 229E Not Detected (Not Detect); Coronavirus HKU1 Not Detected (Not Detect); Coronavirus NL 63 Not Detected (Not Detect); Coronavirus OC43 Not Detected (Not Detect); Human Metapneumovirus Not Detected (Not Detect); Human Rhinovirus/Enterovirus Not Detected (Not Detect); Influenza A Not Detected (Not Detect); Influenza B Not Detected (Not Detect); Mycoplasma pneumoniae Not Detected (Not Detect); Parainfluenza Virus 1 Not Detected (Not Detect); Parainfluenza Virus 2 Not Detected (Not Detect); Parainfluenza Virus 3 Not Detected (Not Detect); Parainfluenza Virus 4 Not Detected (Not Detect); Respiratory Syncytial Virus Not Detected (Not Detect)
[2023-05-10] MEDS: MORPHINE 4 MG/ML INJ IV (13:54)
[2023-05-10 13:55] LABS: SARS- CoV-2 Detected (Not Detecte)
[2023-05-10 13:56] LABS: Bacteria Urine Moderate (10-30); Culture Indicated Urine Cult Not Indicated; Ictotest Urine Negative (Negative); RBC Urine None Seen (0-5/HPF); Squamous Epithelial Cell Urine 1-5 /HPF (0-5/HPF); WBC Urine None Seen (0-5/HPF)
[2023-05-10 14:21] LABS: Troponin I 0.065 ng/mL (0.01-0.034)
--- NOTE | 2023-05-10 14:25 | DI.CT.S_ITS ---
PROCEDURE: CT ANGIO CHEST PE PROTOCOL INDICATIONS: sob, chest pain, +covid TECHNIQUE: After the administration of intravenous contrast, 2 mm thick sections acquired from the pulmonary apices to the posterior costophrenic angles. 3-dimensional maximum intensity projection (MIP) coronal and sagittal reformats were then acquired through the thorax. For radiation dose reduction, the following was used: automated exposure control, adjustment of mA and/or kV according to patient size. COMPARISON: None. FINDINGS: Image quality: Diagnostic. Pulmonary arteries: Pulmonary arteries are normal in size, and demonstrate no intraluminal filling defects to suggest central pulmonary embolism. Lungs and pleura: There is moderate centrilobular emphysema with an apical predominance. The dense airspace opacities are present within the dependent aspect of the bilateral lower lobes. These are more confluent on the left than on the right. Scattered airspace opacities are also present within the posterior lingula. Calcified granulomas are present within the right upper lobe. Mediastinum: Heart size is normal, without pericardial effusion. No mediastinal or hilar adenopathy. There are calcified right hilar lymph nodes. Thoracic aorta is normal in caliber and enhancement. Scattered atheromatous calcifications are present within the aortic arch. Esophagus is normal in caliber, without hiatal hernia. Bones and chest wall: No suspicious bony lesions. Ribs and thoracic spine appear intact throughout. No axillary or supraclavicular adenopathy. No thyroid nodules which require sonographic follow up, per consensus guidelines. Abdomen: Visualized upper abdominal solid organs appear normal in the early arterial phase of enhancement. IMPRESSION: 1. No acute pulmonary embolus. 2. Dependent, consolidative radiopacities at the lung bases suspicious for multifocal aspiration pneumonia. Short interval followup is recommended with resolution of the patient's symptoms to ensure there is no underlying pulmonary pathology. Dictated by: Kimberly Costa M.D. on 05/10/2023 at 14:57 Approved by: Kimberly Costa M.D. on 05/10/2023 at 15:03
[2023-05-10] MEDS: cefTRIAXone 2,000 MG in SODIUM CHLORIDE 0.9% 100 ML 200 MG IV (14:50)
[2023-05-10 15:01] LABS: Troponin I 0.067 ng/mL (0.01-0.034)
[2023-05-10] MEDS: AZITHROMYCIN 500 MG in DEXTROSE 5% IN WATER 250 ML 250 MG IV (15:24)
--- NOTE | 2023-05-10 16:23 | PC.NURSE ---
Pt aflutter. HR 72. Ekg done. Dr Spencer notified.
--- NOTE | 2023-05-10 21:12 | P.HP_ITS ---
History of Present Illness History of Present Illness Date Patient Seen: 05/10/23 Time Patient Seen: 17:00 Chief complaint: SOB/Cough Narrative: Mr. Khalil is a 68M with PMH ALVARO, afib/aflutter who presents to the hospital with shortness of breath. He has noted cough with productive sputum which is yellowish. He has had symptoms for a few weeks, worse over the last few days. He is a smoker, denies history of COPD. He has no fevers/chills. In the ED workup was done, vitals notable for tachycardic, tachypneic. O2 sats in the 80s, he was placed on oxygen. Labs reviewed by me and notable for WBC 21.1, hgb 17.8, plts 230. Na 138, BUN 50, creatinine 0.75. COVID Positive. Chest xray shows left lobe infiltrate. CTA chest with no PE an and bilateral pneumonia. He was given steroids and antibiotics and admitted for further treatment. [facility] Medical History Sleep apnea with use of continuous positive airway pressure (CPAP) HTN (hypertension) Chronic thoracic back pain Left anterior fascicular block (LAFB) Prolonged [place] interval LBBB (left bundle branch block) Chest pain Afib Atrial flutter Surgical History Status post cataract extraction of both eyes with insertion of intraocular lens History of vasectomy Status post left rotator cuff repair Status post right rotator cuff repair H/O right inguinal hernia repair History of appendectomy History of toe surgery S/P wrist surgery No pertinent past surgical history Social History household members: spouse and children Smoking Status: Current every day smoker alcohol intake: current Meds Home Medications and Allergies Home Medications Medication Instructions Recorded Confirmed Type atorvastatin 20 mg tablet (Lipitor) 20 mg PO DAILY ##0 03/21/17 05/10/23 History gabapentin 300 mg capsule 300 mg PO TID ##0 03/21/17 05/10/23 History (Neurontin) lisinopril 20 1 tab PO QDAY ##0 03/21/17 05/10/23 History mg-hydrochlorothiazide 25 mg tablet atenolol 100 mg tablet 100 mg PO DAILY 04/03/18 05/10/23 History flecainide 100 mg tablet 100 mg PO BID 06/21/18 05/10/23 History hydrocodone 5 mg-acetaminophen 325 See Rx Instructions .Route 06/28/18 05/10/23 Rx mg tablet .COMPLEX PRN Pain, Severe (7-10) #25 tabs naproxen 250 mg tablet 500 mg (2 x 250 mg) PO BIDWM #60 06/28/18 05/10/23 Rx tabs Allergies Allergy/AdvReac Type Severity Reaction Status Date / Time No Known Drug Allergies Allergy Verified 06/27/18 13:39 Review of Systems Review of Systems Narrative: 14 systems reviewed and negative aside from what is noted in HPI Exam Vital Signs (past 8 hours): - 05/10/23 13:15 05/10/23 13:30 05/10/23 13:31 Temperature Pulse Rate 97 H 101 H 99 H Respiratory Rate 33 H 34 H 36 H Blood Pressure Pulse Oximetry 94 94 94 Oxygen Delivery Method Nasal Cannula Oxygen Flow Rate 4 05/10/23 13:31 05/10/23 13:45 05/10/23 14:00 Temperature Pulse Rate 101 H 90 Respiratory Rate 28 H 29 H Blood Pressure 195/119 H Pulse Oximetry 94 94 Oxygen Delivery Method Nasal Cannula Oxygen Flow Rate 4 05/10/23 14:01 05/10/23 14:01 05/10/23 14:15 Temperature Pulse Rate 89 90 Respiratory Rate 28 H 25 H Blood Pressure 121/64 Pulse Oximetry 95 95 Oxygen Delivery Method Oxygen Flow Rate 05/10/23 14:30 05/10/23 14:30 05/10/23 14:47 Temperature Pulse Rate 91 H 88 Respiratory Rate 21 30 H Blood Pressure 127/59 L Pulse Oximetry 98 97 Oxygen Delivery Method Nasal Cannula Nasal Cannula Oxygen Flow Rate 4 4 05/10/23 15:00 05/10/23 15:15 05/10/23 15:30 Temperature Pulse Rate 86 77 81 Respiratory Rate 29 H 25 H 24 Blood Pressure Pulse Oximetry 95 95 95 Oxygen Delivery Method Oxygen Flow Rate 05/10/23 15:45 05/10/23 16:00 05/10/23 16:15 Temperature Pulse Rate 76 68 68 Respiratory Rate 22 23 22 Blood Pressure Pulse Oximetry 96 96 97 Oxygen Delivery Method Nasal Cannula Nasal Cannula Oxygen Flow Rate 4 4 05/10/23 16:30 05/10/23 16:32 05/10/23 16:32 Temperature Pulse Rate 76 76 Respiratory Rate 25 H 26 H Blood Pressure 128/78 128/78 Pulse Oximetry 98 97 Oxygen Delivery Method Oxygen Flow Rate 05/10/23 16:45 05/10/23 17:00 05/10/23 17:15 Temperature Pulse Rate 73 69 64 Respiratory Rate 24 21 20 Blood Pressure Pulse Oximetry 97 98 98 Oxygen Delivery Method Nasal Cannula Oxygen Flow Rate 4 05/10/23 17:30 05/10/23 18:11 05/10/23 18:11 Temperature 97.9 F 97.9 F Pulse Rate 69 64 64 Respiratory Rate 21 18 18 Blood Pressure 141/77 H 141/77 H Pulse Oximetry 97 92 92 Oxygen Delivery Method Oxygen Flow Rate 2 2 05/10/23 20:52 Temperature 96.7 F L Pulse Rate 85 Respiratory Rate 19 Blood Pressure 121/73 Pulse Oximetry 94 Oxygen Delivery Method Oxygen Flow Rate 3 Oxygen Delivery Method Nasal Cannula Oxygen Flow Rate 3 Narrative Exam Narrative: GEN: in respiratory distress CV: tachycardic PULM: coarse breath sounds bilaterally ABD: soft, nontender NEURO: awake, alert, oriented Objective Labs 05/10/23 12:35 05/10/23 12:35 Labs: Laboratory Results - last 24 hr 05/10/23 05/10/23 05/10/23 12:28 12:35 13:25 WBC 21.1 H RBC 5.77 Hgb 17.8 H Hct 51.6 MCV 89.5 MCH 30.8 MCHC 34.4 RDW 14.0 Plt Count 230 Neut % (Auto) 90.2 H Lymph % (Auto) 1.6 L [place] % (Auto) 8.0 Eos % (Auto) 0.1 L Baso % (Auto) 0.1 Neut # (Auto) 43082 H Lymph # (Auto) 300 L [place] # (Auto) 1700 H Eos # (Auto) 0 Baso # (Auto) 0 PT 18.7 H INR 1.6 H Sodium 128 L Potassium 3.5 Chloride 96 L Carbon Dioxide 26 BUN 50 H Creatinine 0.75 Estimated GFR > 60 BUN/Creatinine Ratio 66.7 H Glucose 128 H Lactate 1.7 Calcium 8.5 Total Bilirubin 1.9 H AST 28 ALT 18 Alkaline Phosphatase 87 Total Creatine Kinase 42 L Troponin I 0.065 H Cancelled NT-Pro-B Natriuret Pep 1290 H Total Protein 6.2 L Albumin 2.8 L Globulin 3.4 Albumin/Globulin Ratio 0.8 L Urine Color Yellow Urine Appearance Clear Urine pH 5.5 Ur Specific [place] 1.020 Urine Protein 1+ H Urine Glucose (UA) Negative Urine Ketones Negative Urine Occult Blood Negative Urine Nitrate Positive H Urine Bilirubin 1+ H Ur Bilirubin Confirm Negative Urine Urobilinogen 2.0 H Ur Leukocyte Esterase Negative Urine RBC None seen Urine WBC None seen Ur Squamous Epith Cells 1-5 /hpf Urine Bacteria Moderate (10-30) H Ur Culture Indicated? Cult not indicated Chlamy pneumoniae PCR Not detected Adenovirus (PCR) Not detected B.parapertussis DNA PCR Not detected Coronavirus OC43 (PCR) Not detected Coronavirus HKU1 (PCR) Not detected Coronavirus 229E (PCR) Not detected SARS-CoV-2 (PCR) Detected H Coronavirus NL63 (PCR) Not detected Human Metapneumovir PCR Not detected Influenza Type A (PCR) Not detected Influenza Type B (PCR) Not detected M. pneumoniae (PCR) Not detected Parainfluenza 1 (PCR) Not detected Parainfluenza 2 (PCR) Not detected Parainfluenza 3 (PCR) Not detected Parainfluenza 4 (PCR) Not detected RSV (PCR) Not detected Entero/Rhino (PCR) Not detected 05/10/23 14:31 WBC RBC Hgb Hct MCV MCH MCHC RDW Plt Count Neut % (Auto) Lymph % (Auto) [place] % (Auto) Eos % (Auto) Baso % (Auto) Neut # (Auto) Lymph # (Auto) [place] # (Auto) Eos # (Auto) Baso # (Auto) PT INR Sodium Potassium Chloride Carbon Dioxide BUN Creatinine Estimated GFR BUN/Creatinine Ratio Glucose Lactate Calcium Total Bilirubin AST ALT Alkaline Phosphatase Total Creatine Kinase Troponin I 0.067 H NT-Pro-B Natriuret Pep Total Protein Albumin Globulin Albumin/Globulin Ratio Urine Color Urine Appearance Urine pH Ur Specific [place] Urine Protein Urine Glucose (UA) Urine Ketones Urine Occult Blood Urine Nitrate Urine Bilirubin Ur Bilirubin Confirm Urine Urobilinogen Ur Leukocyte Esterase Urine RBC Urine WBC Ur Squamous Epith Cells Urine Bacteria Ur Culture Indicated? Chlamy pneumoniae PCR Adenovirus (PCR) B.parapertussis DNA PCR Coronavirus OC43 (PCR) Coronavirus HKU1 (PCR) Coronavirus 229E (PCR) SARS-CoV-2 (PCR) Coronavirus NL63 (PCR) Human Metapneumovir PCR Influenza Type A (PCR) Influenza Type B (PCR) M. pneumoniae (PCR) Parainfluenza 1 (PCR) Parainfluenza 2 (PCR) Parainfluenza 3 (PCR) Parainfluenza 4 (PCR) RSV (PCR) Entero/Rhino (PCR) Assessment & Plan Assessment & Plan narrative: 1. Acute hypoxemic respiratory secondary COVID pneumonia -treat with steroids and remdesivir -continue antibiotics for possible superinfection due to recent worsening -CTA showed no PE -wean off oxygen 2. Atrial fibrillation, atrial flutter -continue fleicanide -hold atenolol for now 3. Hyponatremia -suspect hypovolemia due to illness -trend daily I have discussed plan and obtained history from patient and family. I have discussed plan of care with ED physician and bedside nurse. I have reviewed labs, imaging CODE: Full Proxy: family Patricia Quality [facility] - Meds 'Current medications' to include all prescriptions, [id number] products, herbals, cannabis/cannabidiol products, and vitamin/mineral/dietary (nutritional) supplements. I have utilized all available resources to obtain, update, or review the patient?s current medications. [If Yes, STOP here]: Yes
[2023-05-10] MEDS: GABAPENTIN 300 MG CAPSULE PO (22:26)
[2023-05-10] MEDS: FLECAINIDE 100 MG TABLET PO (22:27)
[2023-05-10] MEDS: HYDROCODONE/ACET 5/325 TABLET 1 TAB PO (22:27)
[2023-05-10] MEDS: REMDESIVIR 200 MG in SODIUM CHLORIDE 0.9% 250 ML 250 MG IV (22:27)
[2023-05-11] VITALS (14 sets, daily range): BP systolic 104–154; BP diastolic 61–98; PULSE 53–110; RESP 16–22; TEMP 36.2–36.8; O2SAT 90–98
[2023-05-11 06:43] LABS: Add Manual Diff / Slide Review NO; Basophils Absolute Auto 0 /uL (0-100); Basophils Percent Auto 0.1 % (0-2); Eosinophils Absolute Auto 0 /uL (0-450); Hematocrit 46.3 % (41-53); Hemoglobin 16.1 g/dL (13.5-17.5); Lymphocytes Absolute Auto 300 /uL (1100-4500); Lymphocytes Percent Auto 2.1 % (25-40); Mean Corpuscular HGB Conc 34.8 % (30-36); Mean Corpuscular Hemoglobin 31.4 PG (26-34); Mean Corpuscular Volume 90.2 fL (80-100); Monocytes Absolute Auto 600 /uL (0-900); Monocytes Percent Auto 3.7 % (3-14); Neutrophils Absolute Auto 14300 /uL (1500-7000); Neutrophils Percent Auto 94.1 % (50-75); Platelet Count 237 X10^3/uL (150-400); Red Blood Cell Count 5.13 X10^6/uL (4.5-5.9); Red Cell Distribution Width 14.3 % (11.6-14.8); White Blood Cell Count 15.2 X10^3/uL (4.5-11.0)
[2023-05-11 06:56] LABS: BUN Creatinine Ratio 56.4 (6-22); Blood Urea Nitrogen 57 mg/dL (9-20); Calcium 8.6 mg/dL (8.4-10.2); Carbon Dioxide 24 mmol/L (22-32); Chloride 94 mmol/L (98-107); Estimated Glomerular Filt Rate > 60 mL/min (>60); Glucose 142 mg/dL (80-110); HEMOLYSIS 16 (0-50); Sodium 130 mmol/L (137-145)
[2023-05-11] MEDS: DEXAMETHASONE 10 MG/ML VIAL 6 MG IV (09:36)
[2023-05-11] MEDS: ENOXAPARIN 40 MG/0.4 ML SYRINGE SUBCUT (09:36)
[2023-05-11] MEDS: REMDESIVIR 100 MG in SODIUM CHLORIDE 0.9% 250 ML 250 MG IV (09:36)
[2023-05-11] MEDS: GABAPENTIN 300 MG CAPSULE PO ×3 (09:36→20:16)
[2023-05-11] MEDS: FLECAINIDE 100 MG TABLET PO ×2 (09:38→20:17)
--- NOTE | 2023-05-11 11:15 | PT.IIE ---
Current Diagnoses COVID-19 (05/10/23) Surgical History (Last Reviewed 05/10/23 @ 12:44 by Munira Spencer DO) H/O right inguinal hernia repair History of appendectomy History of toe surgery History of vasectomy No pertinent past surgical history S/P wrist surgery Status post cataract extraction of both eyes with insertion of intraocular lens Status post left rotator cuff repair Status post right rotator cuff repair Medical History (Last Reviewed 05/10/23 @ 12:44 by Munira Spencer DO) Afib Atrial flutter Chest pain Chronic thoracic back pain HTN (hypertension) LBBB (left bundle branch block) Left anterior fascicular block (LAFB) Prolonged [place] interval Sleep apnea with use of continuous positive airway pressure (CPAP) Physical Therapy Inpatient Evaluation/Re-Eval M1 PT/OT-IP Prior Functional Status Start: 05/11/23 12:49 Freq: NEEDED Status: Active Protocol: Document 05/11/23 11:15 AB (Rec: 05/11/23 13:00 AB [id number]) Medical Review Prior Functional Status Medical History Reviewed Yes Communication able to make needs known; [place] BAND Mobility and Gait pt stated that he is modified idnependent with all mobilities and ambulation using a SPC but has been feeling weak for at least 1 month and not able to move much Social History Household Members spouse,children Living Arrangements House Number of Floors (Floors) One Floor Number of Stairs To Enter/Railing? 1 step to enter the house Home Environment Walk in Shower Home Equipment Straight Cane,Hand Held Shower ,Grab Bars In Shower Additional Social History Comment pt has his spouse and son to assist him at home pt stated that he sleeps on his recliner M2 PT-IP Current Condition Start: 05/11/23 12:49 Freq: NEEDED Status: Active Protocol: Document 05/11/23 11:15 AB (Rec: 05/11/23 13:00 AB [email or web address]) Physical Therapy Current Condition Current Condition Evaluation Date 05/11/23 Treatment Diagnosis Covid PNA; difficulty in walking Onset Date 05/10/23 M3 PT-IP Subjective Start: 05/11/23 12:49 Freq: NEEDED Status: Active Protocol: Document 05/11/23 11:15 AB (Rec: 05/11/23 13:00 AB [email or web address]) Subjective Physical Therapy Visit Type Type Initial Evaluation Visit Start Time 11:15 Visit Stop Time 11:55 Total Visit Minutes 40 Number of CAMP MANAGER Visits 0 Physical Therapy Visit Comments Patient Comments agreeable to do PT M4 PT-IP Mobility and Gait Start: 05/11/23 12:49 Freq: NEEDED Status: Active Protocol: Document 05/11/23 11:15 AB (Rec: 05/11/23 13:00 AB [id number]) PT-Bed Mobility Assessment Supine to Sit Supine to Sit Standby Assistance PT-Transfer Assessment Sit to and From Stand Sit to and from Stand Contact Guard Assistance,1 Person Assistance,Use of Upper Extremities Equipment Transfer Assistive Device Gait Belt,Front Wheeled Walker Orthotic/Prosthetic Devices or Brace: No Transfers Transfer Destination Chair Transfer Technique ambulated Transfer Ability Level of Assist Contact Guard Assistance,1 Person Assistance,Use of Upper Extremities Comments Mobility Comments pt supine in bed. agreeable to do PT. O2 sat with 2L/min O2: 93% . completed supine to sit SBA. able to sit on EOB SBA. O2 sat sittin%. pt completed sit to stand CGA and ambulated in room ~ 15 ft using FWW CGA but stated that he has to sit down. instructed to back up and sit on the chair. positioned pt on the chair. O2 sat: 93%. call light and table placed within reach. Gait Assessment Gait Gait Assistance Required: Contact Guard Assist Distance (Feet) 15 Able to Maintain Weight Bearing Status No During Gait Assistive Devices Assistive Device Gait Belt,Front Wheeled Walker Orthotic/Prosthetic Devices or Brace: No Factors Limiting Gait Function Factors Limiting Gait Function Decreased Activity Tolerance, Decreased Strength,Poor Balance,Poor Safety Awareness, Respiratory Distress PT-Balance Assessment Sitting Balance and Reactions Static Sitting Balance Ability Normal Dynamic Sitting Balance Ability Good Standing Balance and Reactions Static Standing Balance Ability Good Dynamic Standing Balance Ability Fair Device Used FWW M5 PT-IP Objective Assessments Start: 05/11/23 12:49 Freq: NEEDED Status: Active Protocol: Document 05/11/23 11:15 AB (Rec: 05/11/23 13:00 AB [id number]) Orientation Orientation/Cognition Level of Alertness Alert Orientation Name,Place,Situation Language Function Ability Hard of Hearing Safety Awareness Decreased Safety Awareness Memory Description No Deficits Noted Gross Range of Motion Lower Extremity ROM Assessment Within Functional Limits Strength Lower Extremity Strength Assessment Within Functional Limits Muscle Tone Muscle Tone WNL Yes M6 PT-IP Treatment Start: 11/22/23 12:49 Freq: NEEDED Status: Active Protocol: Document 05/11/23 11:15 AB (Rec: 05/11/23 13:00 AB [email or web address]) Physical Therapy Treatment Education Education Provided Safety M7 PT-IP Assessment and Plan Start: 05/11/23 12:49 Freq: NEEDED Status: Active Protocol: Document 05/11/23 11:15 AB (Rec: 05/11/23 13:00 AB [email or web address]) PT Summary Assessment and Plan Potential Rehabilitation Potential Fair Status of Condition at Evaluation Evolving Summary Impairments Pain,Balance,Cognition,Bed Mobility,Transfers,Gait, Activity Tolerance Assessment Summary pt is a 68 y/o M who presented to the ED with c/o SOB. pt admitted for respiratory failure, Covid PNA. pt requiring CGA with ambulation using FWW and has decrease activity tolerance. Per pt's report, he has not been moving much at home even prior to admission. pt will have his spouse and son to assist him as needed at home. will continue to assess progress. Goals Bed Mobility Goal Independent Transfer Goal Independent,Front Wheeled Walker Gait Goal Independent,Front Wheel Walker Gait Distance 200 Other Goals improve transfers and ambulation using SPC mod I ~ 250 ft up/down 1 step using SPC/FWW mod I Days to Meet Goals 10 Frequency of Treatment Frequency Of Treatment Once a Day Treatment Plan Physical Therapy Treatment Plan Bed Mobility Training,Transfer Training,Gait Training, Therapeutic Exercise,Balance Retraining,Discharge Planning, Hot or Cold Pack,Neuromuscular Re-ed,Coordination Retraining Precautions Other Precautions Covid Recommendations To Nursing Amount of Assist Needed 1 Person Assist Discharge Recommendations PT Discharge Recommendations Home with Assistance,Home Health Equipment Needed for Home Before FWW if not safe with SPC Discharge Transportation Needs at Discharge Private Vehicle,Wheelchair/ Cabulance
[2023-05-11] MEDS: cefTRIAXone 1,000 MG in SODIUM CHLORIDE 0.9% 100 ML 200 MG IV (13:15)
[2023-05-11] MEDS: guaiFENesin ER 600 MG TAB PO ×2 (13:57→20:17)
[2023-05-11] MEDS: NICOTINE 7 MG PATCH TOP (13:58)
[2023-05-11] MEDS: AZITHROMYCIN 500 MG in DEXTROSE 5% IN WATER 250 ML 250 MG IV (13:58)
[2023-05-11] MEDS: HYDROCODONE/ACET 5/325 TABLET 1 TAB PO (13:58)
--- NOTE | 2023-05-11 14:20 | CM.DANOTE ---
Reviewed EMR for pt's medical status and initial anticipated d/c needs. Did not meet with pt due to Covid+ status, will plan to call tomorrow to continue assessment. Payor: Romina Aparicio PCP: Pradeep Gardner Pt is a 68 year-old M who presented to the ED on 05/10/23 c/o worsening fatigue over the last month, and worsening shortness of breath, chest pain, and couph over the last week. Pt resides semi-independently in his own home w/ and son, who both help him with care and mobility needs. ED evaluation was positive for bilateral covid pneumonia. He was started on IV steroids and ABO's and admitted for further treatment. DCP will continue to follow and assist with evolving d/c recommendations/needs. Discharge Planning/Care Management CM Discharge Assessment Start: 05/11/23 14:09 Freq: Status: Active Protocol: Document 05/11/23 14:09 DPL (Rec: 05/11/23 14:20 DPL [id number]) Discharge Planning Assessment Assigned Lead Press Operator BREANNE Jimenez Advance Directives? No History Provided By Medical Record Has Patient been admitted in last 30 No days? Prior Living Arrangements House Household Members spouse,children Type of transporation used prior to Relies on Others admit Independent with ADL's No: Semi-independent, needs assistance from and adult son. Is patient alert and oriented? Yes: Per EMR. Pt is covid+, did not meet w/him in person. Needs Assistance With Home Chores / Shopping Caregiver for Another No DME Already Rented / Owned Cane Comment Pending PT/OT recommendations, home w/assistance and possibly HH. Barriers to Discharge No Discharge Plan Home Transportation Arrangement Family to provide transport home. Referrals Initiated None needed If patient plan is home with home health No : Has signed face to face form been completed? Comment SOLAR SYSTEM INSTALLER will assist w/this if it's the final recommendation for d/c. Whiteboard Updated in Patient Room with No name and ext. # of Lead Press Operator Comment COVID isolation precautions in place. Review Status In Process Please Provide Date Initial DC 05/11/23 Assessment Was Performed
--- NOTE | 2023-05-11 16:30 | OT.IP.EVAL ---
Addendum entered and electronically signed by Hayley Simental OT 05/11/23 17:04: esign Original Note: Current Diagnoses COVID-19 (05/10/23) Past Medical History (Last Reviewed 05/10/23 @ 12:44 by Munira Spencer DO) Afib Atrial flutter Chest pain Chronic thoracic back pain HTN (hypertension) LBBB (left bundle branch block) Left anterior fascicular block (LAFB) Prolonged [place] interval Sleep apnea with use of continuous positive airway pressure (CPAP) Surgical History (Last Reviewed 05/10/23 @ 12:44 by Munira Spencer DO) H/O right inguinal hernia repair History of appendectomy History of toe surgery History of vasectomy No pertinent past surgical history S/P wrist surgery Status post cataract extraction of both eyes with insertion of intraocular lens Status post left rotator cuff repair Status post right rotator cuff repair Occupational Therapy Inpatient Evaluation/Re-Eval M1 PT/OT-IP Prior Functional Status Start: 05/11/23 16:40 Freq: NEEDED Status: Active Protocol: Document 05/11/23 15:45 [facility] (Rec: 05/11/23 17:02 [facility] [id number]) Medical Review Prior Functional Status Medical History Reviewed Yes Communication able to make needs known; ENTERPRISE Mobility and Gait pt stated that he is modified independent with all mobilities and ambulation using a SPC but has been feeling weak for at least 1 month and not able to move much Activities of Daily Living and IADL's Pt states prior to feeling weak and was able to care for himself. Prior Functional Level (Other details) Pt states since having Covid has not been feeling well and not motivated eat or get into the shower lately. Social History Household Members spouse,children Living Arrangements House Number of Floors (Floors) One Floor Number of Stairs To Enter/Railing? 1 step to enter Home Environment Walk in Shower Home Equipment Straight Cane,Hand Held Shower ,Grab Bars In Shower Additional Social History Comment pt has his spouse and son to assist him at home pt stated that he sleeps on his recliner M2 OT-IP Current Condition Start: 05/11/23 16:40 Freq: Status: Active Protocol: Document 05/11/23 15:45 [facility] (Rec: 05/11/23 17:02 [facility] [id number]) Occupational Therapy Current Condition Current Condition Evaluation Date 05/11/23 Treatment Diagnosis Bilateral PNA COViD+ Diagnosis Onset Date 05/10/23 M3 OT- IP Subjective and Pain Start: 05/11/23 16:40 Freq: Status: Active Protocol: Document 05/11/23 15:45 [facility] (Rec: 05/11/23 17:02 [facility] [id number]) OT- Subjective Occupational Therapy Visit Type Type Initial Evaluation Visit Start Time 15:45 Visit Stop Time 16:30 Total Visit Minutes 45 Occupational Therapy Visit Comments Patient Comments Pt agreed and wanting to shower. Patient/Caregiver Goals TO go home. OT Pain Assessment Pain When Pain Assessed At Rest Pain Present Pain Present Denied Pain M4 OT- IP ADL's Start: 05/11/23 16:40 Freq: Status: Active Protocol: Document 05/11/23 15:45 [facility] (Rec: 05/11/23 17:02 [facility] [id number]) OT [id number] Comments OT Self-Feeding Comments Not at meal time, no issues anticipated. OT ADL-Grooming General Evaluation Grooming Ability Independent Areas Needing Assistance Retrieving/Set-up of Grooming Items Comments OT Grooming Comments Pt able to do while seated. OT ADL-Oral Care Comments Oral Care Comments Not performed. OT ADL-Dressing General Eval Lower Body Dressing Ability Minimal Assistance Comments OT Dressing Comments Increased time to bertha brief and assist for socks as tired from just showering. OT ADL-Toileting General Evaluation Toileting Ability Standby Assistance Comments OT Toileting Comments Pt able to sit on the toilet to urinate. OT ADL-Bathing Bathing Type Bathing Type Shower General Evaluation Bathing Ability Minimal Assistance Areas Needing Assistance Wash/Dry Back,Wash/Dry Lower Extremities Devices Bathing Equipment Hand Held Shower Sprayer, Shower Chair with Arms,Grab Bars Comments OT Bathing Comments At this time pt will greatly benefit from a shower chair as get SOB easily and having to take rest breaks while showering. Pt on 4L on O2 and dropped 91% while showering. M5 OT- IP IADL's Start: 05/11/23 16:40 Freq: Status: Active Protocol: Document 05/11/23 15:45 [facility] (Rec: 05/11/23 17:02 [facility] [id number]) OT-Instrumental Activities of Daily Living Deficits IADL Deficits Identified Deficits Home Safety Awareness Home Safety Comments Pt aware that he has been needing assist and not been tellng his - especially for not been able to eat much, not showering , and taking care of himself lately. Meal Preparation Meal Preparation Comments Pt will benefit from assist. Order Takers Supervisor Order Takers Supervisor Comments Pt will benefit from assist. M6 OT- IP Functional Cognition Start: 05/11/23 16:40 Freq: Status: Active Protocol: Document 05/11/23 15:45 [facility] (Rec: 05/11/23 17:02 [facility] [id number]) Cognitive Factors Limiting Selfcare Function Cognitive Ability Level of Alertness Alert Patient Orientation Name,Place,Situation Attention Span Ability Capable of Focused Attention, Capable of Sustained Attention Ability to Follow Commands Able to Follow Multi-Step Commands Cognitive Comments Cognitive Assessment Comments Pt able to follow commands for showering and mobility needs. OT- Vision and Hearing OT- Hearing Assessment OT- Hearing Assessment WFL OT- Vision Assessment Visual Acuity Glasses All The Time M7 OT- IP Mobility and Balance Start: 05/11/23 16:40 Freq: Status: Active Protocol: Document 05/11/23 15:45 [facility] (Rec: 05/11/23 17:02 [facility] [id number]) OT-Transfer Assessment Sit to and From Stand Sit to and from Stand Standby Assistance,Minimal Assistance Transfers Transfer Ability Standby Assistance,Contact Guard Assistance Technique Transfer Destination Bed,Chair,Shower Stall,Toilet Transfer Technique Stand Step Pivot Devices Transfer Assistive Devices Gait Belt,Front Wheeled Walker Comments Mobility Comments Pt needing LANDON to stand fro lower surfaces, SBA when able to push up from armrests of the recliner or use of grab bar. SBA with FWW and CGA when trying to step over the threshold of the shower. OT- Balance Assessment Sitting Balance and Reactions Static Sitting Balance Ability Normal Dynamic Sitting Balance Ability Good Standing Balance and Reactions Static Standing Balance Ability Good Dynamic Standing Balance Ability Fair Comments Other Balance Tests/Deviations/Treatment Pt had one loss of balance : with FWW due to damp floor of the shower. M8 OT- IP Objective Assessments Start: 05/11/23 16:40 Freq: Status: Active Protocol: Document 05/11/23 15:45 [facility] (Rec: 05/11/23 17:02 [facility] [id number]) OT Gross Range of Motion Upper Extremity Range of Motion Assessment Within Functional Limits OT Strength Comments Strength Comments BUE 4/5 grossly throughout except right thumb due to thenar eminence. OT- Coordination Assessment Upper Extremity Finger to Nose Test Within Functional Limits M9 OT- IP Assessment and Plan Start: 05/11/23 16:40 Freq: Status: Active Protocol: Document 05/11/23 15:45 [facility] (Rec: 05/11/23 17:02 [facility] [id number]) OT Summary Assessment and Plan Potential Rehabilitation Potential Good Analytic Complexity at Evaluation Moderate Summary OT Impairments Strength,Balance,Functional Mobility,Dressing,Toileting, Bathing,Toilet Transfers, Shower Transfers,Activity Tolerance Progress Towards Goals Slow Progress due to Medical Issues,Slow Progress due to Activity Tolerance Assessment Summary Pt MOD complexity and main barrier are decreased activity tolerance and now on 4L on O2 , pt will need assist at times for mobility and ADl needs due to overall decreased endurance. Pt may benefit from a FWW pending his progress. Pt to go home with 24/7 available assist and home health when medically stable. Goals Grooming Goal Independent Dressing Goal Independent Toileting Goal Independent Bathing Goal Independent Toilet Transfer Goal Independent Shower Transfer Goal Independent Days to Meet Goals 10 Frequency of Treatment Frequency Of Treatment Once a Day Treatment Plan OT Treatment Plan ADL Training,Functional Mobility,Patient/Family Education,Discharge Planning Discharge Recommendations OT Discharge Recommendations Home with 24/7 Assist Available,Home Health Home Equipment Needs shower chair, FWW Transportation Needs at Discharge Private Vehicle
--- NOTE | 2023-05-11 16:33 | PM.PN.1 ---
Subjective Subjective Date Patient Seen: 05/11/23 Time Patient Seen: 08:00 Interval history: He remains short of breath. He remains on oxygen with sats borderline over 90%. He is coughing but it is not very productive. Exam Vital Signs (past 8 hours): - 05/11/23 09:00 05/11/23 10:00 05/11/23 13:00 Temperature 97.7 F Pulse Rate 103 H Respiratory Rate 18 Blood Pressure 132/74 Pulse Oximetry 94 90 L Oxygen Delivery Method Nasal Cannula Nasal Cannula Oxygen Flow Rate 2 05/11/23 13:28 05/11/23 14:00 Temperature Pulse Rate Respiratory Rate Blood Pressure Pulse Oximetry 93 93 Oxygen Delivery Method Oximask Simple Mask Oxygen Flow Rate 4 2.5 Oxygen Delivery Method Simple Mask Oxygen Flow Rate 2.5 Narrative Exam Narrative: GEN: in respiratory distress CV: tachycardic PULM: coarse breath sounds bilaterally ABD: soft, nontender NEURO: awake, alert, oriented Objective Labs 05/11/23 05:34 05/11/23 05:34 Labs: Laboratory Results - last 24 hr 05/11/23 05:34 WBC 15.2 H RBC 5.13 Hgb 16.1 Hct 46.3 MCV 90.2 MCH 31.4 MCHC 34.8 RDW 14.3 Plt Count 237 Neut % (Auto) 94.1 H Lymph % (Auto) 2.1 L [place] % (Auto) 3.7 Eos % (Auto) 0.0 L Baso % (Auto) 0.1 Neut # (Auto) 14940 H Lymph # (Auto) 300 L [place] # (Auto) 600 Eos # (Auto) 0 Baso # (Auto) 0 Sodium 130 L Potassium 4.0 Chloride 94 L Carbon Dioxide 24 BUN 57 H Creatinine 1.01 Estimated GFR > 60 BUN/Creatinine Ratio 56.4 H Glucose 142 H Calcium 8.6 PFSH Medical History Sleep apnea with use of continuous positive airway pressure (CPAP) HTN (hypertension) Chronic thoracic back pain Left anterior fascicular block (LAFB) Prolonged [place] interval LBBB (left bundle branch block) Chest pain Afib Atrial flutter Surgical History Status post cataract extraction of both eyes with insertion of intraocular lens History of vasectomy Status post left rotator cuff repair Status post right rotator cuff repair H/O right inguinal hernia repair History of appendectomy History of toe surgery S/P wrist surgery No pertinent past surgical history Social History household members: spouse and children Smoking Status: Current every day smoker alcohol intake: current Assessment & Plan Assessment & Plan narrative: 1. Acute hypoxemic respiratory secondary COVID pneumonia -treat with steroids and remdesivir -continue antibiotics for possible superinfection due to recent worsening symptoms -CTA showed no PE -wean off oxygen as able 2. Atrial fibrillation, atrial flutter -continue fleicanide -hold atenolol for now 3. Hyponatremia -suspect hypovolemia due to illness -trend daily I have discussed plan and obtained history from patient and family. I have discussed plan of care with ED physician and bedside nurse. I have reviewed labs, imaging CODE: Full Proxy: Loc Khalil, family
--- NOTE | 2023-05-11 17:55 | PC.NURSE ---
Addendum entered by Asiya Dominguez R.N. 05/11/23 18:14: Spoke with MD Wolf regarding pt's increased heart rate today - baseline before this afternoon was around 60, now 103. BP stable. Asked MD if patient should be on telemetry. said no, that he recommends restarting pt's home Atenolol dose, he suspects increased HR is due to patient not having taken his PO atenolol in more than 24 hours. Will continue to monitor. Original Note: Day shift: Noted that patient is coughing intermittently, yellow/brown sputum. Pt reports he is experiencing hearing difficulty due to feeling like his R ear is clogged. He reports it pops and then feels clogged again. Pt is also experiencing a runny nose. Spoke with MD Wolf who ordered PO Mucinex. Pt also requested nicotine patch since he reports he has tried to stop smoking but is still smoking 5-6 cigarettes a day. Pt continues to be very short of breath with any exertion. However, O2 sats remain relatively stable in low 90s on 2L with simple mask (pt is a mouth breather) while at rest and with movement. Pt 1PA with FWW. He experienced 2 episodes of mild loss of balance today due to shortness of breath and/or pain. He appeared to become suddenly weak, but righted himself both times without the need of assistance. This RN stood directly behind him holding gait belt while he ambulated to BR. Worked with PT/OT today. Bed alarm on (patient calls appropriately).
--- NOTE | 2023-05-11 23:38 | PC.NURSE ---
Addendum entered by Sugey Dickerson R.N. 05/11/23 23:56: VS immediately after fall BP 127/87, T 97.2, O2 95% on 4L via simple mask, R 16, HR 93. Patient reassessed and denied pain or discomfort. No new bruising noted. VSS. BP 126/84, HR 90, T 97.4, O2 95% on 4 L, R 18. Original Note: Around 20:30, patient was assisted to bathroom by CLINICAL ACCOUNT LIAISON, instructed to use call light when ready to get back in bed. Upon checking on patient, CLINICAL ACCOUNT LIAISON found him on his knees on the recliner. Upon assessment, patient denied pain and stated I thought I was ok to get up, but I guess I wasn't. I will call next time. He self transferred and reports that when going back to bed he was bending down to meat pickler some socks, lost his balance and lowered himself to the floor while holding on to walker with one hand and the counter with the other. He reports he softly lowered self to knees and ball of bilateral feet. He stated that he didn't want anyone to find out. Denied pain. Noted fading bruises to bilateral knees and no injury to feet. Coordinator and hospitalist notified.
[2023-05-12] VITALS (11 sets, daily range): BP systolic 125–145; BP diastolic 77–90; PULSE 66–94; RESP 18–20; TEMP 36.1–36.6; O2SAT 94–100
[2023-05-12 05:50] LABS: Hematocrit 46.1 % (41-53); Hemoglobin 15.5 g/dL (13.5-17.5); Mean Corpuscular HGB Conc 33.6 % (30-36); Mean Corpuscular Hemoglobin 30.2 PG (26-34); Platelet Count 309 X10^3/uL (150-400); Red Blood Cell Count 5.12 X10^6/uL (4.5-5.9); Red Cell Distribution Width 14.1 % (11.6-14.8); White Blood Cell Count 19.2 X10^3/uL (4.5-11.0)
[2023-05-12 05:58] LABS: Blood Urea Nitrogen 72 mg/dL (9-20); Calcium 8.6 mg/dL (8.4-10.2); Carbon Dioxide 25 mmol/L (22-32); Chloride 93 mmol/L (98-107); Estimated Glomerular Filt Rate > 60 mL/min (>60); Glucose 116 mg/dL (80-110); HEMOLYSIS 19 (0-50); Potassium 4.2 mmol/L (3.4-5.1); Sodium 127 mmol/L (137-145)
--- NOTE | 2023-05-12 08:47 | PT.IPTN ---
Current Diagnoses COVID-19 (05/10/23) Physical Therapy Treatment Note M2 PT-IP Current Condition Start: 05/11/23 12:49 Freq: NEEDED Status: Active Protocol: Document 05/11/23 11:15 AB (Rec: 05/11/23 13:00 AB [id number]) Physical Therapy Current Condition Current Condition Evaluation Date 05/11/23 Treatment Diagnosis Covid PNA; difficulty in walking Onset Date 05/10/23 M3 PT-IP Subjective Start: 05/11/23 12:49 Freq: NEEDED Status: Active Protocol: Document 05/12/23 09:56 TS (Rec: 05/12/23 10:13 TS [id number]) Subjective Physical Therapy Visit Type Type Treatment Note Visit Start Time 08:47 Visit Stop Time 09:20 Total Visit Minutes 33 Number of WHEEL BLOCKER Visits 1 Physical Therapy Visit Comments Patient Comments Pt found resting in bed, Spo2 93% on 2.5L of o2, pt agreeable to PT. M4 PT-IP Mobility and Gait Start: 05/11/23 12:49 Freq: NEEDED Status: Active Protocol: Document 05/12/23 09:56 TS (Rec: 05/12/23 10:13 TS [id number]) PT-Bed Mobility Assessment Supine to Sit Supine to Sit Standby Assistance Sit to Supine Sit to Supine Standby Assistance Scooting Scooting to Edge of Bed Standby Assistance Scooting Up and Down in Bed Standby Assistance PT-Transfer Assessment Sit to and From Stand Sit to and from Stand Standby Assistance,Use of Upper Extremities Equipment Transfer Assistive Device Gait Belt,Front Wheeled Walker Orthotic/Prosthetic Devices or Brace: No Comments Mobility Comments Supine to sit SBA with HOB elevated 55D. Sit to stand x6 SBA with FWW and BUE support on FWW, pt demonstrates good standing balance, is slow to stand. He ambulated in room ~ 40' SBA with FWW, had some SOB , Spo2 desat to 87%, o2 increased to 3.5L for mobility . Pt ambulated another 40'SBA with FWW, has some unsteadiness and shaky legs, reports knees feel weak. Pt sat back in bed, o2 remained at 3.5L, all needs met, bed alarm on. Gait Assessment Gait Gait Assistance Required: Standby Assistance Distance (Feet) 80 Able to Maintain Weight Bearing Status No During Gait Assistive Devices Assistive Device Gait Belt,Front Wheeled Walker Orthotic/Prosthetic Devices or Brace: No Factors Limiting Gait Function Factors Limiting Gait Function Decreased Activity Tolerance, Decreased Strength,Poor Balance,Poor Safety Awareness, Respiratory Distress Comments Gait Comments See mobility comments PT-Balance Assessment Sitting Balance and Reactions Static Sitting Balance Ability Normal Dynamic Sitting Balance Ability Good Standing Balance and Reactions Static Standing Balance Ability Good Dynamic Standing Balance Ability Fair Device Used FWW M5 PT-IP Objective Assessments Start: 05/11/23 12:49 Freq: NEEDED Status: Active Protocol: Document 05/11/23 11:15 AB (Rec: 05/11/23 13:00 AB [id number]) Orientation Orientation/Cognition Level of Alertness Alert Orientation Name,Place,Situation Language Function Ability Hard of Hearing Safety Awareness Decreased Safety Awareness Memory Description No Deficits Noted Gross Range of Motion Lower Extremity ROM Assessment Within Functional Limits Strength Lower Extremity Strength Assessment Within Functional Limits Muscle Tone Muscle Tone WNL Yes M6 PT-IP Treatment Start: 05/11/23 12:49 Freq: NEEDED Status: Active Protocol: Document 05/12/23 09:56 TS (Rec: 05/12/23 10:13 TS [id number]) Physical Therapy Treatment Education Education Provided Safety M7 PT-IP Assessment and Plan Start: 05/11/23 12:49 Freq: NEEDED Status: Active Protocol: Document 05/12/23 09:56 TS (Rec: 05/12/23 10:13 TS [id number]) PT Summary Assessment and Plan Potential Rehabilitation Potential Fair Summary Impairments Pain,Balance,Cognition,Bed Mobility,Transfers,Gait, Activity Tolerance Progress Towards Goals Progressing Toward Goals Assessment Summary Felix is making some progress with his mobility. He continues to be SBA for all bed mobility. He is SBA with FWW for sit to stands x6, he is slow to stand due to weakness. He progressed his gait to ~80'SBA with FWW, required rest break after ~40' . He desats to high 80's with his o2 during mobility, increased to 3.5L from 2.5L to 92%. PT continues to recommend home with assist and HHPT. Goals Bed Mobility Goal Independent Transfer Goal Independent,Front Wheeled Walker Gait Goal Independent,Front Wheel Walker Gait Distance 200 Other Goals improve transfers and ambulation using SPC mod I ~ 250 ft up/down 1 step using SPC/FWW mod I Days to Meet Goals 10 Frequency of Treatment Frequency Of Treatment Once a Day Treatment Plan Physical Therapy Treatment Plan Bed Mobility Training,Transfer Training,Gait Training, Therapeutic Exercise,Balance Retraining,Discharge Planning, Hot or Cold Pack,Neuromuscular Re-ed,Coordination Retraining Precautions Other Precautions Covid Recommendations To Nursing Amount of Assist Needed 1 Person Assist Discharge Recommendations PT Discharge Recommendations Home with Assistance,Home Health Equipment Needed for Home Before FWW if not safe with SPC Discharge Transportation Needs at Discharge Private Vehicle,Wheelchair/ Cabulance
[2023-05-12] MEDS: REMDESIVIR 100 MG in SODIUM CHLORIDE 0.9% 250 ML 250 MG IV (10:16)
[2023-05-12] MEDS: atenoloL 50 MG TABLET 100 MG PO (10:17)
[2023-05-12] MEDS: GABAPENTIN 300 MG CAPSULE PO ×3 (10:17→21:12)
[2023-05-12] MEDS: NICOTINE 7 MG PATCH TOP (10:17)
[2023-05-12] MEDS: DEXAMETHASONE 10 MG/ML VIAL 6 MG IV (10:18)
[2023-05-12] MEDS: guaiFENesin ER 600 MG TAB PO ×2 (10:18→21:12)
[2023-05-12] MEDS: FLECAINIDE 100 MG TABLET PO ×2 (10:18→21:13)
[2023-05-12] MEDS: ENOXAPARIN 40 MG/0.4 ML SYRINGE SUBCUT (10:18)
--- NOTE | 2023-05-12 13:26 | PM.PN.1 ---
Subjective Subjective Date Patient Seen: 05/12/23 Time Patient Seen: 08:00 Interval history: His shortness of breath is quite a bit improved today. But he gets short of breath with activity. Exam Vital Signs (past 8 hours): - 05/12/23 06:00 05/12/23 06:00 05/12/23 08:39 Temperature 97.8 F 97.5 F L Pulse Rate 79 87 Respiratory Rate 18 20 Blood Pressure 135/81 145/82 H Pulse Oximetry 97 97 95 Oxygen Delivery Method Simple Mask Oxygen Flow Rate 4 4 2 05/12/23 10:30 05/12/23 12:00 Temperature 97.2 F L Pulse Rate 66 Respiratory Rate 18 Blood Pressure 125/77 Pulse Oximetry 94 94 Oxygen Delivery Method Room Air Oxygen Flow Rate 0 Oxygen Delivery Method Room Air Oxygen Flow Rate 0 Narrative Exam Narrative: GEN: in respiratory distress CV: tachycardic PULM: coarse breath sounds bilaterally ABD: soft, nontender NEURO: awake, alert, oriented Objective Labs 05/12/23 05:10 05/12/23 05:10 Labs: Laboratory Results - last 24 hr 05/12/23 05:10 WBC 19.2 H RBC 5.12 Hgb 15.5 Hct 46.1 MCV 90.0 MCH 30.2 MCHC 33.6 RDW 14.1 Plt Count 309 Sodium 127 L Potassium 4.2 Chloride 93 L Carbon Dioxide 25 BUN 72 H Creatinine 1.22 Estimated GFR > 60 BUN/Creatinine Ratio 59.0 H Glucose 116 H Calcium 8.6 PFSH Medical History Sleep apnea with use of continuous positive airway pressure (CPAP) HTN (hypertension) Chronic thoracic back pain Left anterior fascicular block (LAFB) Prolonged [place] interval LBBB (left bundle branch block) Chest pain Afib Atrial flutter Surgical History Status post cataract extraction of both eyes with insertion of intraocular lens History of vasectomy Status post left rotator cuff repair Status post right rotator cuff repair H/O right inguinal hernia repair History of appendectomy History of toe surgery S/P wrist surgery No pertinent past surgical history Social History household members: spouse and children Smoking Status: Current every day smoker alcohol intake: current Assessment & Plan Assessment & Plan narrative: 1. Acute hypoxemic respiratory secondary COVID pneumonia -treat with steroids and remdesivir -continue antibiotics for possible superinfection due to recent worsening symptoms -CTA showed no PE -wean off oxygen as able 2. Atrial fibrillation, atrial flutter -continue fleicanide -hold atenolol for now 3. Hyponatremia -suspect hypovolemia due to illness -trend daily 4. Smoker -continue nicotine patch
[2023-05-12] MEDS: cefTRIAXone 1,000 MG in SODIUM CHLORIDE 0.9% 100 ML 200 MG IV (14:05)
[2023-05-12] MEDS: AZITHROMYCIN 500 MG in DEXTROSE 5% IN WATER 250 ML 150 MG IV (16:01)
--- NOTE | 2023-05-12 17:28 | PC.NURSE ---
Recieved care at 1500 Pt independent in room SpO2 96% 3L IV ABO infusing as per orders. Denies discomfort. Call light w/in reach, pt calls appropriately for needs. Continue w/plan of care.
[2023-05-12] MEDS: MELATONIN 3 MG TABLET 6 MG PO (21:12)
[2023-05-13] VITALS (38 sets, daily range): BP systolic 93–158; BP diastolic 52–82; PULSE 30–71; RESP 15–36; TEMP 36.1–36.9; O2SAT 83–100
[2023-05-13] MEDS: ENOXAPARIN 40 MG/0.4 ML SYRINGE SUBCUT (08:40)
[2023-05-13] MEDS: FLECAINIDE 100 MG TABLET PO (08:40)
[2023-05-13] MEDS: REMDESIVIR 100 MG in SODIUM CHLORIDE 0.9% 250 ML 250 MG IV (08:40)
[2023-05-13] MEDS: GABAPENTIN 300 MG CAPSULE PO ×3 (08:40→21:08)
[2023-05-13] MEDS: DEXAMETHASONE 10 MG/ML VIAL 6 MG IV (08:41)
[2023-05-13] MEDS: NICOTINE 7 MG PATCH TOP (08:41)
[2023-05-13] MEDS: guaiFENesin ER 600 MG TAB PO ×2 (08:42→21:08)
[2023-05-13] MEDS: atenoloL 50 MG TABLET 100 MG PO (08:44)
--- NOTE | 2023-05-13 11:00 | PT.IPTN ---
Current Diagnoses COVID-19 (05/10/23) Physical Therapy Treatment Note M2 PT-IP Current Condition Start: 05/11/23 12:49 Freq: NEEDED Status: Active Protocol: Document 05/11/23 11:15 AB (Rec: 05/11/23 13:00 AB [email or web address]) Physical Therapy Current Condition Current Condition Evaluation Date 05/11/23 Treatment Diagnosis Covid PNA; difficulty in walking Onset Date 05/10/23 M3 PT-IP Subjective Start: 05/11/23 12:49 Freq: NEEDED Status: Active Protocol: Document 05/13/23 11:00 AB (Rec: 05/13/23 12:22 AB [email or web address]) Subjective Physical Therapy Visit Type Type Treatment Note Visit Start Time 11:00 Visit Stop Time 11:45 Total Visit Minutes 45 Number of EVALUATION MANAGER Visits 0 Physical Therapy Visit Comments Patient Comments agreeable to do PT M4 PT-IP Mobility and Gait Start: 05/11/23 12:49 Freq: NEEDED Status: Active Protocol: Document 05/13/23 11:00 AB (Rec: 05/13/23 12:22 AB [email or web address]) PT-Bed Mobility Assessment Supine to Sit Supine to Sit Maximum Assistance,1 Person Assistance PT-Transfer Assessment Sit to and From Stand Sit to and from Stand Standby Assistance,Contact Guard Assistance,Use of Upper Extremities Equipment Transfer Assistive Device Gait Belt Orthotic/Prosthetic Devices or Brace: No Transfers Transfer Destination Chair Transfer Technique Stand Step Pivot Transfer Ability Level of Assist Contact Guard Assistance,Use of Upper Extremities Comments Mobility Comments checked on pt and pt stated that he is not feeling too well today and c/o difficulty breathing but agreed to do PT. O2 sat with O2 on: 98% WA: 35. Nurse is aware of pt's WA . pt instructed to sit on EOB but stated that he needs a hand to pull to be able to sit up. told pt that he was able to do supine to sit with only SBA yesterday. pt stated that his head is lower in bed today. pt assisted and needing max A. pt able to sit on EOB SBA. O2 sat: 96% WA: 38. pt completed sit to stand SBA to CGA and step transfer to chair using FWW CGA. pt refused ambulation and stated that he cannot walk right now but might walk later at night. pt agreed to stay up on the chair. pt took off O2 after transfers. O2 sat: 95-96% WA 44 bp. positioned pt on the chair. pt put his O2 back on. call light and table placed within reach. M5 PT-IP Objective Assessments Start: 05/11/23 12:49 Freq: NEEDED Status: Active Protocol: Document 05/11/23 11:15 AB (Rec: 05/11/23 13:00 AB [email or web address]) Orientation Orientation/Cognition Level of Alertness Alert Orientation Name,Place,Situation Language Function Ability Hard of Hearing Safety Awareness Decreased Safety Awareness Memory Description No Deficits Noted Gross Range of Motion Lower Extremity ROM Assessment Within Functional Limits Strength Lower Extremity Strength Assessment Within Functional Limits Muscle Tone Muscle Tone WNL Yes M6 PT-IP Treatment Start: 05/11/23 12:49 Freq: NEEDED Status: Active Protocol: Document 05/13/23 11:00 AB (Rec: 05/13/23 12:22 AB [email or web address]) Physical Therapy Treatment Education Education Provided Safety M7 PT-IP Assessment and Plan Start: 05/11/23 12:49 Freq: NEEDED Status: Active Protocol: Document 05/13/23 11:00 AB (Rec: 05/13/23 12:22 AB [email or web address]) PT Summary Assessment and Plan Potential Rehabilitation Potential Fair Summary Impairments Pain,ROM,Strength,Balance, Sensation,Tone,Cognition,Bed Mobility,Transfers,Gait, Activity Tolerance Progress Towards Goals Slow Progress due to Activity Tolerance,Slow Progress - Other Assessment Summary pt requiring max A for bed mobility with HOB elevated to ~ 40 deg, SBA to CGA for sit to stand and CGA for transfers using fWW. pt refused to do ambulation today. pt continue to present with decrease activity tolerance affecting mobility and independence. O2 sat stable with O2 on: 95-98% even with activity but presents with low WA: 35 resting and 44 after transfers . d/c plan depending on progress but at this time, may require SNF. Goals Bed Mobility Goal Independent Transfer Goal Independent,Front Wheeled Walker Gait Goal Independent,Front Wheel Walker Gait Distance 200 Other Goals improve transfers and ambulation using SPC mod I ~ 250 ft up/down 1 step using SPC/FWW mod I Days to Meet Goals 10 Frequency of Treatment Frequency Of Treatment Once a Day Treatment Plan Physical Therapy Treatment Plan Bed Mobility Training,Transfer Training,Gait Training, Therapeutic Exercise,Balance Retraining,Discharge Planning, Hot or Cold Pack,Neuromuscular Re-ed,Coordination Retraining Precautions Other Precautions Covid Recommendations To Nursing Amount of Assist Needed 1 Person Assist Discharge Recommendations PT Discharge Recommendations Home with 10/01 Assist Available,Home Health,SNF Rehab Equipment Needed for Home Before FWW if not safe with SPC Discharge Transportation Needs at Discharge Private Vehicle,Wheelchair/ Cabulance
--- NOTE | 2023-05-13 12:16 | CM.DPC ---
DCP Cont. Reviewed EMR and team rounds for status updates. Pt continues to require 2LO2, as well as IV steroids and ABO's. Hospitalist anticipates another few days before pt can d/c, pending continued progress. Cont. to monitor.
--- NOTE | 2023-05-13 12:59 | OT.IPNOTE ---
Per nursing pt having low BP 45 ,back in bed, and wanting to rest.
[2023-05-13] MEDS: cefTRIAXone 1,000 MG in SODIUM CHLORIDE 0.9% 100 ML 200 MG IV (13:55)
[2023-05-13] MEDS: AZITHROMYCIN 500 MG in DEXTROSE 5% IN WATER 250 ML 150 MG IV (15:00)
--- NOTE | 2023-05-13 15:16 | PM.PN.1 ---
Subjective Subjective Interval history: Still very dyspneic with any movement. On 2L oxymask. Very wet cough. Fatigued and tired. Asking for black coffee. Exam Vital Signs (past 8 hours): - 05/13/23 08:05 05/13/23 09:15 05/13/23 12:24 Temperature 97.8 F 97.9 F Pulse Rate 71 45 L Respiratory Rate 32 H 20 Blood Pressure 125/58 L 113/79 Pulse Oximetry 96 95 98 Oxygen Delivery Method Oximask Oxygen Flow Rate 2 2 2 Oxygen Delivery Method Oximask Oxygen Flow Rate 2 Narrative Exam Narrative: GEN: mild respiratory distress, intermittent wet cough CV: tachycardic PULM: coarse breath sounds bilaterally ABD: soft, nontender NEURO: awake, alert, oriented Objective Labs 05/12/23 05:10 05/12/23 05:10 [facility] Medical History Sleep apnea with use of continuous positive airway pressure (CPAP) HTN (hypertension) Chronic thoracic back pain Left anterior fascicular block (LAFB) Prolonged CT interval LBBB (left bundle branch block) Chest pain Afib Atrial flutter Surgical History Status post cataract extraction of both eyes with insertion of intraocular lens History of vasectomy Status post left rotator cuff repair Status post right rotator cuff repair H/O right inguinal hernia repair History of appendectomy History of toe surgery S/P wrist surgery No pertinent past surgical history Social History household members: spouse and children Smoking Status: Current every day smoker alcohol intake: current Assessment & Plan Assessment & Plan narrative: 1. Acute hypoxemic respiratory secondary COVID pneumonia -treat with steroids and remdesivir -continue antibiotics for possible superinfection due to recent worsening symptoms -CTA showed no PE -wean off oxygen as able 2. Atrial fibrillation, atrial flutter with intermittent bradycardia -continue flecainide -HR down to 30's briefly, stopped atenolol -tele 3. Hyponatremia -suspect hypovolemia due to illness -trend daily 4. Smoker -continue nicotine patch Dispo: 2-3 days to improve dyspnea and wean O2.
[2023-05-13 18:58] LABS: Add Manual Diff / Slide Review NO; Basophils Absolute Auto 100 /uL (0-100); Basophils Percent Auto 1.2 % (0-2); Eosinophils Absolute Auto 0 /uL (0-450); Eosinophils Percent Auto 0.1 % (2-4); Hematocrit 47.4 % (41-53); Hemoglobin 16.2 g/dL (13.5-17.5); Lymphocytes Absolute Auto 300 /uL (1100-4500); Lymphocytes Percent Auto 2.5 % (25-40); Mean Corpuscular HGB Conc 34.1 % (30-36); Mean Corpuscular Volume 90.8 fL (80-100); Monocytes Absolute Auto 800 /uL (0-900); Monocytes Percent Auto 6.6 % (3-14); Neutrophils Absolute Auto 10600 /uL (1500-7000); Neutrophils Percent Auto 89.6 % (50-75); Platelet Count 294 X10^3/uL (150-400); Red Blood Cell Count 5.22 X10^6/uL (4.5-5.9); Red Cell Distribution Width 14.7 % (11.6-14.8); White Blood Cell Count 11.8 X10^3/uL (4.5-11.0)
[2023-05-13 18:59] LABS: Troponin I 0.033 ng/mL (0.01-0.034)
[2023-05-13 19:06] LABS: Alanine Aminotransferase 24 IU/L (<50); Albumin 2.7 g/dL (3.5-5.0); Albumin Globulin Ratio 0.8 (1.0-2.8); Alkaline Phosphatase 84 U/L (38-126); Aspartate Aminotransferase 32 IU/L (17-59); BUN Creatinine Ratio 67.7 (6-22); Bilirubin Total 0.9 mg/dL (0.2-1.3); Blood Urea Nitrogen 65 mg/dL (9-20); Calcium 8.4 mg/dL (8.4-10.2); Carbon Dioxide 28 mmol/L (22-32); Chloride 98 mmol/L (98-107); Estimated Glomerular Filt Rate > 60 mL/min (>60); Globulin 3.5 g/dL (1.7-4.1); Glucose 159 mg/dL (80-110); HEMOLYSIS 59 (0-50); Sodium 134 mmol/L (137-145); Total Protein 6.2 g/dL (6.3-8.2)
[2023-05-13 19:08] LABS: Potassium 4.5 mmol/L (3.4-5.1)
--- NOTE | 2023-05-13 19:12 | PC.NURSE ---
1814 Pt arrived from Rm 212 due to need for closer monitoring, pt was found to be extremely bradycardic with EKG showing a possible wenckebauch. Pt moved to 231, oriented to room and call light system, connected to monitoring, bedside monitor showing Sinus ana with 1 degree AVB and prolonged QT. Report received from Rachelle Moss, Dr Caicedo placed new orders for Atropine to be givien PRN if pt is symptomatic, report passed to VP [facility], no further pt contact at this time.
--- NOTE | 2023-05-13 19:26 | PC.NURSE ---
Bradycardia: Pt having bradycardia over night. This am was 45-52, when awakened he was mid 70's continuously. Discussed atenolol and heart rate, pt reports even when heart rate is slower he still takes med and same was given. Later in the am he was 36-48, occ up to 50's. MD Caicedo made aware. Stop Atenolol for now, MD aware pt did take his dose this am. Early this wang pt called staff to room. He denied he was having c/p but he was having chest pressure. He reports he has only felt like this 2 or 3 times in his life. RT called for stat ecg, Dr Caicedo made aware, see orders. is writing for a prn atropine. Later asked for pacer pads to be placed and then changed mind. Transfer pt to ICU, this was done. Pt reports the chest pressure has left since transfering to ICU. Dr. Caicedo consulting with final inspector shuttle. Report given to Masha in ICU. Pt transfered from 212 to 231 per isolation protocol. Clara spouse called and upated on pt condition. She reports this did happen in the past but it was many years ago. She wants to be called with any further changes. Resp: Pt found w/out O2 on this am. RA O2 sat was 92-93%, RR 16-20. Sitting up to side of bed sats were 90%. Amb to the bathroom per pt request and sat found to have falled to 86%. RR increased to 32-36 and using accessory muscles to breath. O2 was reapplied. Returned to bed, it took pt 15 mins to recover to his baseline. O2 left on as pt reports it makes him feel more comfortable.
[2023-05-13] MEDS: ATROPINE 1 MG/10 ML SYRINGE 0.5 MG IV (19:51)
[2023-05-13] MEDS: MELATONIN 3 MG TABLET 6 MG PO (21:08)
[2023-05-14] VITALS (36 sets, daily range): BP systolic 89–146; BP diastolic 50–78; PULSE 33–78; RESP 15–36; TEMP 36.2–36.7; O2SAT 89–100
[2023-05-14 05:27] LABS: Add Manual Diff / Slide Review NO; Basophils Absolute Auto 0 /uL (0-100); Basophils Percent Auto 0.1 % (0-2); Eosinophils Absolute Auto 0 /uL (0-450); Eosinophils Percent Auto 0.1 % (2-4); Hematocrit 46.5 % (41-53); Hemoglobin 15.5 g/dL (13.5-17.5); Lymphocytes Absolute Auto 600 /uL (1100-4500); Lymphocytes Percent Auto 4.8 % (25-40); Mean Corpuscular HGB Conc 33.3 % (30-36); Mean Corpuscular Hemoglobin 30.5 PG (26-34); Mean Corpuscular Volume 91.5 fL (80-100); Monocytes Absolute Auto 800 /uL (0-900); Monocytes Percent Auto 6.5 % (3-14); Neutrophils Absolute Auto 10800 /uL (1500-7000); Neutrophils Percent Auto 88.5 % (50-75); Platelet Count 265 X10^3/uL (150-400); Red Blood Cell Count 5.08 X10^6/uL (4.5-5.9); Red Cell Distribution Width 14.4 % (11.6-14.8); White Blood Cell Count 12.2 X10^3/uL (4.5-11.0)
[2023-05-14 05:33] LABS: Blood Urea Nitrogen 62 mg/dL (9-20); Carbon Dioxide 32 mmol/L (22-32); Chloride 100 mmol/L (98-107); Estimated Glomerular Filt Rate > 60 mL/min (>60); Glucose 114 mg/dL (80-110); HEMOLYSIS < 15 (0-50); Potassium 5.5 mmol/L (3.4-5.1); Sodium 136 mmol/L (137-145)
[2023-05-14] MEDS: ALBUTEROL/IPRATROPIUM 3 ML AMPUL INH (08:43)
[2023-05-14] MEDS: HYDROCODONE/ACET 5/325 TABLET 2 TAB PO ×2 (08:56→13:34)
[2023-05-14] MEDS: GABAPENTIN 300 MG CAPSULE PO ×3 (08:57→20:31)
[2023-05-14] MEDS: DEXAMETHASONE 10 MG/ML VIAL 6 MG IV (08:57)
[2023-05-14] MEDS: guaiFENesin ER 600 MG TAB PO ×2 (08:57→20:31)
[2023-05-14] MEDS: NICOTINE 7 MG PATCH TOP (08:57)
[2023-05-14] MEDS: ENOXAPARIN 40 MG/0.4 ML SYRINGE SUBCUT (08:57)
--- NOTE | 2023-05-14 10:55 | PT.IPTN ---
Current Diagnoses COVID-19 (05/10/23) Physical Therapy Treatment Note M2 PT-IP Current Condition Start: 05/11/23 12:49 Freq: NEEDED Status: Active Protocol: Document 05/11/23 11:15 AB (Rec: 05/11/23 13:00 AB [email or web address]) Physical Therapy Current Condition Current Condition Evaluation Date 05/11/23 Treatment Diagnosis Covid PNA; difficulty in walking Onset Date 05/10/23 M3 PT-IP Subjective Start: 05/11/23 12:49 Freq: NEEDED Status: Active Protocol: Document 05/14/23 11:24 TS (Rec: 05/14/23 11:45 TS [id number]) Subjective Physical Therapy Visit Type Type Treatment Note Visit Start Time 10:55 Visit Stop Time 11:20 Total Visit Minutes 25 Notes Spouse present Number of TICKETER Visits 2 Physical Therapy Visit Comments Patient Comments Pt found asleep, resting in bed, is agreeable to PT. M4 PT-IP Mobility and Gait Start: 05/11/23 12:49 Freq: NEEDED Status: Active Protocol: Document 05/14/23 11:24 TS (Rec: 05/14/23 11:45 TS [id number]) PT-Bed Mobility Assessment Supine to Sit Supine to Sit Minimal Assistance,1 Person Assistance Sit to Supine Sit to Supine Standby Assistance Scooting Scooting to Edge of Bed Standby Assistance Scooting Up and Down in Bed Standby Assistance PT-Transfer Assessment Sit to and From Stand Sit to and from Stand Standby Assistance,Use of Upper Extremities Equipment Transfer Assistive Device Gait Belt,Front Wheeled Walker Orthotic/Prosthetic Devices or Brace: No Comments Mobility Comments Pt found resting in bed, Spo2 95% on 3L, on RA during mobility. Supine to sit Jai with handheld assist for uprighting trunk into sitting position. Sit to stand with FWW SBA from bed, pt slightly unsteady initially in standing . He ambulated in room ~80'SBA /CGA with FWW, is unsteady but has no buckling or LOB, Spo2 remained in low 90's. Pt stood at sink with no AD for hygiene. Sit to supine into bed SBA with HOB elevated. Pt was left in bed all needs met, bed alarm on, RN notified. Gait Assessment Gait Gait Assistance Required: Standby Assistance Distance (Feet) 80 Able to Maintain Weight Bearing Status No During Gait Assistive Devices Assistive Device Gait Belt,Front Wheeled Walker Orthotic/Prosthetic Devices or Brace: No Factors Limiting Gait Function Factors Limiting Gait Function Decreased Activity Tolerance, Decreased Strength,Poor Balance,Poor Safety Awareness, Respiratory Distress Comments Gait Comments See mobility comments PT-Balance Assessment Sitting Balance and Reactions Static Sitting Balance Ability Normal Dynamic Sitting Balance Ability Good Standing Balance and Reactions Static Standing Balance Ability Good Dynamic Standing Balance Ability Fair Device Used FWW M5 PT-IP Objective Assessments Start: 05/11/23 12:49 Freq: NEEDED Status: Active Protocol: Document 05/11/23 11:15 AB (Rec: 05/11/23 13:00 AB [email or web address]) Orientation Orientation/Cognition Level of Alertness Alert Orientation Name,Place,Situation Language Function Ability Hard of Hearing Safety Awareness Decreased Safety Awareness Memory Description No Deficits Noted Gross Range of Motion Lower Extremity ROM Assessment Within Functional Limits Strength Lower Extremity Strength Assessment Within Functional Limits Muscle Tone Muscle Tone WNL Yes M6 PT-IP Treatment Start: 05/11/23 12:49 Freq: NEEDED Status: Active Protocol: Document 05/14/23 11:24 TS (Rec: 05/14/23 11:45 TS [id number]) Physical Therapy Treatment Education Education Provided Safety M7 PT-IP Assessment and Plan Start: 05/11/23 12:49 Freq: NEEDED Status: Active Protocol: Document 05/14/23 11:24 TS (Rec: 05/14/23 11:45 TS [id number]) PT Summary Assessment and Plan Potential Rehabilitation Potential Fair Summary Impairments Pain,ROM,Strength,Balance, Sensation,Tone,Cognition,Bed Mobility,Transfers,Gait, Activity Tolerance Progress Towards Goals Progressing Toward Goals Assessment Summary Felix is making some progress with his mobility this session. He is Jai for supine to sit with handheld assist and HOB elevated. He continues to amublate short distances in room ~80' with FWW, continues to be unsteady with gait. He stood with no AD for hygiene at sink with no LOB. Spo2 remained in low 90's on RA. PT continues to recommend home with assist. Goals Bed Mobility Goal Independent Transfer Goal Independent,Front Wheeled Walker Gait Goal Independent,Front Wheel Walker Gait Distance 200 Other Goals improve transfers and ambulation using SPC mod I ~ 250 ft up/down 1 step using SPC/FWW mod I Days to Meet Goals 10 Frequency of Treatment Frequency Of Treatment Once a Day Treatment Plan Physical Therapy Treatment Plan Bed Mobility Training,Transfer Training,Gait Training, Therapeutic Exercise,Balance Retraining,Discharge Planning, Hot or Cold Pack,Neuromuscular Re-ed,Coordination Retraining Precautions Other Precautions Covid Recommendations To Nursing Amount of Assist Needed 1 Person Assist Discharge Recommendations PT Discharge Recommendations Home with Assistance,Home Health Equipment Needed for Home Before FWW if not safe with SPC Discharge Transportation Needs at Discharge Private Vehicle
--- NOTE | 2023-05-14 13:31 | PM.PN.1 ---
Subjective Subjective Interval history: Off of O2 this afternoon, feeling improved and has return of smell and taste today. He continues to feel very weak. Exam Vital Signs (past 8 hours): - 05/14/23 06:00 05/14/23 06:00 05/14/23 07:00 Pulse Rate 57 L Respiratory Rate 26 H Blood Pressure 130/72 146/73 H Pulse Oximetry 99 Oxygen Delivery Method Oxygen Flow Rate 3 05/14/23 07:00 05/14/23 07:00 05/14/23 07:00 Pulse Rate 60 Respiratory Rate 26 H Blood Pressure Pulse Oximetry 99 98 Oxygen Delivery Method Room Air Room Air Oxygen Flow Rate 05/14/23 08:00 05/14/23 08:00 05/14/23 08:55 Pulse Rate 63 71 Respiratory Rate 26 H 18 Blood Pressure 143/69 H Pulse Oximetry 99 96 Oxygen Delivery Method Oximask Oxygen Flow Rate 3 05/14/23 09:00 05/14/23 09:00 05/14/23 10:00 Pulse Rate 70 68 Respiratory Rate 15 25 H Blood Pressure 133/61 Pulse Oximetry 94 98 Oxygen Delivery Method Oxygen Flow Rate 05/14/23 10:01 05/14/23 10:01 05/14/23 11:00 Pulse Rate 67 Respiratory Rate 23 Blood Pressure 124/66 Pulse Oximetry 99 97 Oxygen Delivery Method Room Air Oxygen Flow Rate 05/14/23 11:04 05/14/23 12:00 05/14/23 13:00 Pulse Rate 71 66 68 Respiratory Rate 20 22 Blood Pressure Pulse Oximetry 89 L 91 92 Oxygen Delivery Method Oxygen Flow Rate Oxygen Delivery Method Room Air Oxygen Flow Rate 3 Narrative Exam Narrative: GEN: no acute distress CV: RRR no m/r/g PULM: coarse breath sounds bilaterally ABD: soft, nontender NEURO: awake, alert, oriented Objective Labs 05/14/23 04:30 05/14/23 04:30 Labs: Laboratory Results - last 24 hr 05/13/23 05/14/23 18:25 04:30 WBC 11.8 H 12.2 H RBC 5.22 5.08 Hgb 16.2 15.5 Hct 47.4 46.5 MCV 90.8 91.5 MCH 31.0 30.5 MCHC 34.1 33.3 RDW 14.7 14.4 Plt Count 294 265 Neut % (Auto) 89.6 H 88.5 H Lymph % (Auto) 2.5 L 4.8 L [place] % (Auto) 6.6 6.5 Eos % (Auto) 0.1 L 0.1 L Baso % (Auto) 1.2 0.1 Neut # (Auto) 44367 H 58589 H Lymph # (Auto) 300 L 600 L [place] # (Auto) 800 800 Eos # (Auto) 0 0 Baso # (Auto) 100 0 Sodium 134 L 136 L Potassium 4.5 5.5 H Chloride 98 100 Carbon Dioxide 28 32 BUN 65 H 62 H Creatinine 0.96 1.00 Estimated GFR > 60 > 60 BUN/Creatinine Ratio 67.7 H 62.0 H Glucose 159 H 114 H Calcium 8.4 9.0 Total Bilirubin 0.9 AST 32 ALT 24 Alkaline Phosphatase 84 Troponin I 0.033 Total Protein 6.2 L Albumin 2.7 L Globulin 3.5 Albumin/Globulin Ratio 0.8 L PFSH Medical History Sleep apnea with use of continuous positive airway pressure (CPAP) HTN (hypertension) Chronic thoracic back pain Left anterior fascicular block (LAFB) Prolonged NM interval LBBB (left bundle branch block) Chest pain Afib Atrial flutter Surgical History Status post cataract extraction of both eyes with insertion of intraocular lens History of vasectomy Status post left rotator cuff repair Status post right rotator cuff repair H/O right inguinal hernia repair History of appendectomy History of toe surgery S/P wrist surgery No pertinent past surgical history Social History household members: spouse and children Smoking Status: Current every day smoker alcohol intake: current Assessment & Plan Assessment & Plan narrative: 1. Acute hypoxemic respiratory secondary COVID pneumonia and possible superimposed bacterial pneumonia -treat with steroids, remdesevir stopped due to bradycardia. If still of O2 in the morning can switch to a few days of prednisone. -continue antibiotics for possible superimposed bacterial pneumonia due to recent worsening symptoms -CTA showed no PE -wean off oxygen as able, goal O2 90-96% while on supplemental therapy. 2. Atrial fibrillation, atrial flutter with intermittent bradycardia and transient type 1 2nd degree heart block. -cardiology recommended cessation of flecainide and continuing half dose atenolol. Rate improved today, no recurrence of afib. Will continue to monitor. - likely exacerbated by remdesevir, which is now stopped. 3. Hyponatremia -suspect hypovolemia due to illness -trend daily 4. Smoker -continue nicotine patch Dispo: likely discharge home, possibly as soon as tomorrow if not requiring supplemental oxygen and symptoms improved. Code: Full, surrogate is spouse. Quality MIPS - Admit I confirm the patient?s Advance Care Plan is present, Code status is documented, Surrogate decision maker is in patient?s record [If Yes, STOP here]: Yes
[2023-05-14] MEDS: cefTRIAXone 1,000 MG in SODIUM CHLORIDE 0.9% 100 ML 200 MG IV (13:33)
[2023-05-14] MEDS: AZITHROMYCIN 250 MG TABLET 500 MG PO (13:34)
[2023-05-15] VITALS (14 sets, daily range): BP systolic 154–173; BP diastolic 88–100; PULSE 41–75; RESP 14–30; TEMP 36.4–36.5; O2SAT 90–94
[2023-05-15 06:16] LABS: Add Manual Diff / Slide Review NO; Basophils Absolute Auto 100 /uL (0-100); Basophils Percent Auto 0.6 % (0-2); Eosinophils Absolute Auto 0 /uL (0-450); Hematocrit 44.4 % (41-53); Hemoglobin 15.2 g/dL (13.5-17.5); Lymphocytes Absolute Auto 500 /uL (1100-4500); Lymphocytes Percent Auto 4.5 % (25-40); Mean Corpuscular HGB Conc 34.2 % (30-36); Mean Corpuscular Volume 90.6 fL (80-100); Monocytes Absolute Auto 600 /uL (0-900); Monocytes Percent Auto 5.3 % (3-14); Neutrophils Absolute Auto 9800 /uL (1500-7000); Neutrophils Percent Auto 89.6 % (50-75); Platelet Count 274 X10^3/uL (150-400); Red Blood Cell Count 4.91 X10^6/uL (4.5-5.9); Red Cell Distribution Width 14.2 % (11.6-14.8); White Blood Cell Count 10.9 X10^3/uL (4.5-11.0)
[2023-05-15 06:21] LABS: BUN Creatinine Ratio 56.9 (6-22); Blood Urea Nitrogen 41 mg/dL (9-20); Calcium 8.1 mg/dL (8.4-10.2); Carbon Dioxide 30 mmol/L (22-32); Chloride 99 mmol/L (98-107); Estimated Glomerular Filt Rate > 60 mL/min (>60); Glucose 113 mg/dL (80-110); HEMOLYSIS < 15 (0-50); Potassium 4.2 mmol/L (3.4-5.1); Sodium 133 mmol/L (137-145)
[2023-05-15] MEDS: NICOTINE 7 MG PATCH TOP (08:19)
[2023-05-15] MEDS: HYDROCODONE/ACET 5/325 TABLET 2 TAB PO (08:19)
[2023-05-15] MEDS: DEXAMETHASONE 10 MG/ML VIAL 6 MG IV (08:20)
[2023-05-15] MEDS: guaiFENesin ER 600 MG TAB PO (08:20)
[2023-05-15] MEDS: ENOXAPARIN 40 MG/0.4 ML SYRINGE SUBCUT (08:20)
[2023-05-15] MEDS: AZITHROMYCIN 250 MG TABLET 500 MG PO (08:20)
[2023-05-15] MEDS: atenoloL 25 MG TABLET PO (08:20)
[2023-05-15] MEDS: GABAPENTIN 300 MG CAPSULE PO (08:20)
--- NOTE | 2023-05-15 09:32 | P.DS_ITS ---
History of Present Illness History of Present Illness Date Patient Seen: 05/15/23 Time Patient Seen: 09:32 Chief complaint: SOB/Cough Narrative: Mr. Khalil is a 68M with PMH ALVARO, afib/aflutter who presents to the hospital with shortness of breath. He has noted cough with productive sputum which is yellowish. He has had symptoms for a few weeks, worse over the last few days. He is a smoker, denies history of COPD. He has no fevers/chills. In the ED workup was done, vitals notable for tachycardic, tachypneic. O2 sats in the 80s, he was placed on oxygen. Labs reviewed by me and notable for WBC 21.1, hgb 17.8, plts 230. Na 138, BUN 50, creatinine 0.75. COVID Positive. Chest xray shows left lobe infiltrate. CTA chest with no PE an and bilateral pneumonia. He was given steroids and antibiotics and admitted for further treatment. Discharge Providers Provider Date of admission: 05/10/23 16:48 Discharge Date: 05/15/23 Primary care physician: Pradeep Gardner MD Consults: 05/10/23 18:11 Consult to Occupational Therapy Evaluate & Treat Comment: Physician Instructions: Evaluate and treat Consult to Physical Therapy Evaluate & Treat Comment: Physician Instructions: Evaluate and Treat 05/15/23 08:05 Consult to Home Health Routine Comment: COVID pneumonia, resp failure, weakness Reason For Exam: Set up RN/PT/LEAD PHARMACY TECHNICIAN for discharge to home Discharge provider: Jon Riley DO Summary Hospital Course Discharge Diagnosis: 1. Acute hypoxemic respiratory secondary COVID pneumonia 2. Chronic Atrial fibrillation, atrial flutter with intermittent bradycardia and transient type 1 2nd degree heart block. 3. Hyponatremia 4. Smoker Hospital Course: This is a 68 year old male with PMH of chronic atrial fibrillation, smoker who was admitted with acute respiratory failure secondary to COVID 19 pneumonia. He improved quickly with remdesevir and steroids, though he did develop a type 1 second degree heart block. Cardiology was called and recommended cessation of flecainide and half dose atenolol. Remdesevir was also stopped at that time. With this his rate was improved. He was able to be weaned off of oxygen quickly, and dexamethasone was subsequently discontinued. He did develop some PTSD related to his symptoms, hospitalization, and related to prior experiences / trauma related to the . Cognitive behavioral therapy was performed with some improvement and he was counseled on some techniques and recommended to follow up with his primary care team for additional resources as an outpatient. His home HCTZ was stopped due to mild hyponatremia, though if this improves and BP is elevated this can possibly be restarted with primary care provider. Time Spent with Patient Time spent: Greater than 30 minutes Exam Vital Signs (past 8 hours): - 05/15/23 02:00 05/15/23 03:00 05/15/23 04:00 Temperature Pulse Rate 41 L 56 L 55 L Respiratory Rate 17 14 14 Blood Pressure Pulse Oximetry 94 94 93 Oxygen Delivery Method Oxygen Flow Rate 05/15/23 04:55 05/15/23 04:55 05/15/23 04:57 Temperature Pulse Rate 66 Respiratory Rate 23 Blood Pressure 173/100 H 154/88 H Pulse Oximetry 93 Oxygen Delivery Method Oxygen Flow Rate 05/15/23 04:57 05/15/23 05:00 05/15/23 05:00 Temperature Pulse Rate 62 55 L Respiratory Rate 22 16 Blood Pressure Pulse Oximetry 93 93 91 Oxygen Delivery Method Room Air Oxygen Flow Rate 05/15/23 05:02 05/15/23 06:00 05/15/23 07:00 Temperature 97.5 F L Pulse Rate 55 L 53 L Respiratory Rate 15 16 Blood Pressure 154/88 H Pulse Oximetry 93 93 Oxygen Delivery Method Room Air Oxygen Flow Rate 0 05/15/23 07:00 05/15/23 07:45 05/15/23 07:45 Temperature 97.7 F Pulse Rate 62 75 Respiratory Rate 17 30 H Blood Pressure 169/91 H Pulse Oximetry 93 91 Oxygen Delivery Method Oxygen Flow Rate 05/15/23 09:00 05/15/23 09:22 Temperature Pulse Rate Respiratory Rate Blood Pressure Pulse Oximetry 91 90 L Oxygen Delivery Method Room Air Nasal Cannula Oxygen Flow Rate 1 Oxygen Delivery Method Nasal Cannula Oxygen Flow Rate 1 Narrative Exam Narrative: GEN: no acute distress CV: RRR no m/r/g PULM: coarse breath sounds bilaterally ABD: soft, nontender NEURO: awake, alert, oriented Objective Labs 05/15/23 04:25 05/15/23 04:25 Labs: Laboratory Results - last 24 hr 05/15/23 04:25 WBC 10.9 RBC 4.91 Hgb 15.2 Hct 44.4 MCV 90.6 MCH 31.0 MCHC 34.2 RDW 14.2 Plt Count 274 Neut % (Auto) 89.6 H Lymph % (Auto) 4.5 L [place] % (Auto) 5.3 Eos % (Auto) 0.0 L Baso % (Auto) 0.6 Neut # (Auto) 9800 H Lymph # (Auto) 500 L [place] # (Auto) 600 Eos # (Auto) 0 Baso # (Auto) 100 Sodium 133 L Potassium 4.2 D Chloride 99 Carbon Dioxide 30 BUN 41 H Creatinine 0.72 Estimated GFR > 60 BUN/Creatinine Ratio 56.9 H Glucose 113 H Calcium 8.1 L PFSH Medical History Sleep apnea with use of continuous positive airway pressure (CPAP) HTN (hypertension) Chronic thoracic back pain Left anterior fascicular block (LAFB) Prolonged [place] interval LBBB (left bundle branch block) Chest pain Afib Atrial flutter Surgical History Status post cataract extraction of both eyes with insertion of intraocular lens History of vasectomy Status post left rotator cuff repair Status post right rotator cuff repair H/O right inguinal hernia repair History of appendectomy History of toe surgery S/P wrist surgery No pertinent past surgical history Social History household members: spouse and children Smoking Status: Current every day smoker alcohol intake: current Discharge Plan Discharge Plan Patient Disposition: Home Health Service Provider Discharge Comment: You were admitted to the hospital with COVID pneumonia, and developed a low heart rate. A few of your medications were changed and are reviewed below. Please try to follow up with your primary care provider in the next week or at most 2 to review how you're doing. I recommend purchasing a pulse oximeter to check your oxygen levels at home if you're feeling like you can't breathe. Discharge orders & Medications Prescriptions: New atenolol 25 mg Tablet 25 mg PO DAILY 90 Days Qty: 90 0RF guaifenesin [Mucus Relief ER] 600 mg Tablet Extended Release 12hr 600 mg PO BID 7 Days Qty: 14 0RF lisinopril 20 mg tablet 20 mg PO DAILY 90 Days Qty: 90 0RF Continued atorvastatin [Lipitor] 20 MG tablet 20 mg PO DAILY Qty: 0 gabapentin [Neurontin] 300 MG capsule 300 mg PO TID Qty: 0 hydrocodone-acetaminophen 5-325 mg Tablet See Rx Instructions .ROUTE .COMPLEX PRN (Reason: Pain, Severe (7-10)) Qty: 25 0RF Rx Instructions: 1-2 PO q4h prn pain naproxen 250 mg Tablet 500 mg PO BIDWM Qty: 60 0RF Discontinued lisinopril-hydrochlorothiazide 20 MG/25 MG tablet 1 tab PO QDAY Qty: 0 atenolol 100 mg tablet 100 mg PO DAILY flecainide 100 mg Tablet 100 mg PO BID Follow up/Referrals: Pradeep Gardner MD [Primary Care Provider] - Diet/Activity/Treatments Diet: Diet as Tolerated and Regular Activity: As tolerated no restrictions Visit Report/Discharge Packet Stand Alone Forms: Patient Portal/API, Stroke Signs & Symptoms Discharge Data Primary Care Provider: Pradeep Gardner
--- NOTE | 2023-05-15 11:13 | CM.DPC ---
DCP Discharge Home Per MD and RN, pt medically stable to d/c home today with HH and pt having some anxiety/breathing fears and both RN and MD discussed at length with pt. SW made HH referral to [facility] based on vendor calendar and faxed clinicals along with signed F2F and HH orders for discharge to home via family POV today. Plan: Patient discharged home via family POV this morning before lunch time and [facility] referral made and to follow for additional home support after discharge. BREANNE Craven
== END 2023-05-15 10:20 | disposition home or self-care (01) | DRG 177 ==
LOC: ED 14:39 → AC 16:48 → ICU 05-13 18:04
PROVIDERS: Student in an Organized Health Care Education/Training Program; Admitting Provider Internal Medicine; Emergency Provider Emergency Medicine; PCP Family Medicine; Referring Provider Emergency Medicine; Visit Provider Internal Medicine
DX: U07.1 COVID-19 (principal); J12.82 Pneumonia due to coronavirus disease 2019; J96.01 Acute respiratory failure with hypoxia; E87.1 Hypo-osmolality and hyponatremia; I48.92 Unspecified atrial flutter; I48.91 Unspecified atrial fibrillation; R00.1 Bradycardia, unspecified; I44.1 Atrioventricular block, second degree; F43.10 Post-traumatic stress disorder, unspecified; I10 Essential (primary) hypertension; G47.30 Sleep apnea, unspecified; F17.210 Nicotine dependence, cigarettes, uncomplicated
CPT/HCPCS: 36415; 71045; 71275; 80048; 80053; 81001; 82550; 83605; 83880; 84484; 85025; 85027; 85610; 87633; 93005; 93010; 94640; 94760; 96365; 96367; 96375; 97116; 97162; 97166; 97530; 99285; J0461; J0696; J1100; J1650; J2270; J2930; Q9967

== ENCOUNTER 2023-05-21 07:12 | Inpatient (IN) | payer MEDICARE, OTHER, SELFPAY ==
[2023-05-10 18:22] VITALS: BMI 21.4
[2023-05-21] VITALS (17 sets, daily range): BP systolic 137–169; BP diastolic 81–112; PULSE 80–120; RESP 18–32; TEMP 36.1–37.4; O2SAT 87–98; BMI 20.7
--- NOTE | 2023-05-21 07:29 | DI.RAD.S_ITS ---
PROCEDURE: XR CHEST 1V INDICATIONS: SOB recent hx of covid TECHNIQUE: One view of the chest was acquired. COMPARISON: [facility], CT, CT ANGIO CHEST PE PROTOCOL, 05/10/2023, 14:37. [facility], CR, XR CHEST 1V, 05/10/2023, 12:57. FINDINGS: Surgical changes and devices: Prior cervical disc replacement surgery. Lungs and pleura: Redemonstration of pulmonary emphysematous changes and hyper inflation. Persistent scarring of the bilateral lung bases with decreased conspicuity of patchy bibasilar opacities and likely small bilateral pleural effusions. No pneumothorax. Mediastinum: Mediastinal contours appear normal. Heart size is normal. Bones and chest wall: No suspicious bony lesions. Overlying soft tissues appear unremarkable. IMPRESSION: 1. Persistent but decreased conspicuity of patchy bibasilar airspace opacities suspected to represent aspiration pneumonia/multifocal pneumonia on previous CT. Small bilateral pleural effusions. 2. No new focal airspace disease identified. 3. Stable background pulmonary emphysematous changes and bibasilar scarring. Dictated by: Francois Meeks M.D. on 05/21/2023 at 7:51 Approved by: Francois Meeks M.D. on 05/21/2023 at 7:54
[2023-05-21 07:37] LABS: Add Manual Diff / Slide Review NO; Basophils Absolute Auto 0 /uL (0-100); Eosinophils Absolute Auto 0 /uL (0-450); Eosinophils Percent Auto 0.2 % (2-4); Hematocrit 49.5 % (41-53); Hemoglobin 16.8 g/dL (13.5-17.5); Lymphocytes Absolute Auto 900 /uL (1100-4500); Lymphocytes Percent Auto 4.8 % (25-40); Mean Corpuscular HGB Conc 33.8 % (30-36); Mean Corpuscular Hemoglobin 30.7 PG (26-34); Mean Corpuscular Volume 90.7 fL (80-100); Monocytes Absolute Auto 1900 /uL (0-900); Monocytes Percent Auto 9.9 % (3-14); Neutrophils Absolute Auto 16100 /uL (1500-7000); Neutrophils Percent Auto 85.1 % (50-75); Platelet Count 167 X10^3/uL (150-400); Red Blood Cell Count 5.46 X10^6/uL (4.5-5.9); Red Cell Distribution Width 14.2 % (11.6-14.8); White Blood Cell Count 18.9 X10^3/uL (4.5-11.0)
[2023-05-21 07:48] LABS: Alanine Aminotransferase 23 IU/L (<50); Albumin 3.1 g/dL (3.5-5.0); Albumin Globulin Ratio 0.8 (1.0-2.8); Alkaline Phosphatase 98 U/L (38-126); Aspartate Aminotransferase 31 IU/L (17-59); BUN Creatinine Ratio 29.4 (6-22); Bilirubin Total 1.1 mg/dL (0.2-1.3); Blood Urea Nitrogen 20 mg/dL (9-20); Calcium 8.5 mg/dL (8.4-10.2); Carbon Dioxide 22 mmol/L (22-32); Chloride 104 mmol/L (98-107); Creatine Kinase 38 U/L (55-170); Estimated Glomerular Filt Rate > 60 mL/min (>60); Glucose 108 mg/dL (80-110); HEMOLYSIS 33 (0-50); Lipase 25 U/L (23-300); Sodium 132 mmol/L (137-145); Total Protein 7.1 g/dL (6.3-8.2)
[2023-05-21 07:49] LABS: Lactate (Lactic Acid) 1.5 mmol/L (0.7-2.1)
[2023-05-21 07:57] LABS: Appearance Urine UA CLEAR; Bilirubin Urine UA NEGATIVE (NEGATIVE); Color Urine UA YELLOW; Glucose Urine UA NEGATIVE (Negative); Ketones Urine UA NEGATIVE (NEGATIVE); Leukocyte Esterase Urine UA NEGATIVE (NEGATIVE); Nitrite Urine UA NEGATIVE (Negative); Occult Blood Urine UA NEGATIVE (Negative); Protein Urine UA 1+ (Negative); pH Urine UA 7.5 (4.5-8.0)
[2023-05-21 08:00] LABS: NT-proBNP (BNP-Adult 18+) 2620 pg/mL (<125); Troponin I 0.021 ng/mL (0.01-0.034)
--- NOTE | 2023-05-21 08:00 | ED_ITS ---
HPI - General Adult General Chief complaint: Upper Respiratory Symptoms Stated complaint: Covid Pneumonia getting worse/temp was 103 at 6am Time Seen by Provider: 05/21/23 07:14 Source: patient and family Mode of arrival: Ambulatory Limitations: no limitations History of Present Illness HPI narrative: Patient is a 68-year-old male. No diagnosis of COPD/emphysema however he does have a significant smoking history having quit smoking approximately 1 month ago. At the end of last month he was admitted to our facility for COVID pneumonia. Spent a couple days in the ICU requiring oxygen. He stated that his symptoms seemed to improve and when he was discharged home he was feeling better but not completely back to normal. Now for the past couple days he is had worsening shortness of breath. No chest pain. Some nausea but no vomiting. Has taken his temperature at home and he is ranged anywhere from 99-102. This morning he states that he got up and was just so fatigued do so short of breath that he almost passed out. He does not require oxygen at baseline. No abdominal pain. When he was admitted the last time he did have quite a bit of sinus congestion but that seems to have improved/resolved. He is no sore throat. He does not express any lower extremity swelling. No joint pain. He does have a history of AFib however is not on anticoagulation Related Data Home Medications Medication Instructions Recorded Confirmed atorvastatin 20 mg tablet (Lipitor) 20 mg PO DAILY ##0 03/21/17 05/21/23 gabapentin 300 mg capsule 300 mg PO TID ##0 03/21/17 05/21/23 (Neurontin) Previous Rx's Medication Instructions Recorded hydrocodone 5 mg-acetaminophen 325 See Rx Instructions .Route 06/28/18 mg tablet .COMPLEX PRN Pain, Severe (7-10) #25 tabs naproxen 250 mg tablet 500 mg (2 x 250 mg) PO BIDWM #60 06/28/18 tabs atenolol 25 mg tablet 25 mg PO DAILY 90 days #90 tabs 05/15/23 guaifenesin 600 mg tablet, 600 mg PO BID 7 days #14 tabs 05/15/23 extended release 12 hr (Mucus Relief ER) lisinopril 20 mg tablet 20 mg PO DAILY 90 days #90 tabs 05/15/23 Allergies Allergy/AdvReac Type Severity Reaction Status Date / Time No Known Drug Allergies Allergy Verified 06/27/18 13:39 Review of Systems Review of Systems ROS Unobtainable: All systems reviewed & are unremarkable except as noted in HPI and below Patient History Medical History Sleep apnea with use of continuous positive airway pressure (CPAP) HTN (hypertension) Chronic thoracic back pain Left anterior fascicular block (LAFB) Prolonged [place] interval LBBB (left bundle branch block) Chest pain Afib Atrial flutter Surgical History Status post cataract extraction of both eyes with insertion of intraocular lens History of vasectomy Status post left rotator cuff repair Status post right rotator cuff repair H/O right inguinal hernia repair History of appendectomy History of toe surgery S/P wrist surgery No pertinent past surgical history Social History household members: spouse and children Smoking Status: Current every day smoker alcohol intake: current Smoking Status: Current every day smoker alcohol intake frequency: holidays/special occasions only Substance Use Type: marijuana Exam Initial Vital Signs Initial Vital Signs: Vital Signs Pulse Rate 118 H 05/21/23 07:19 Pulse Oximetry 87 L 05/21/23 07:19 HENMT Head: normal to inspection and normocephalic Resp Effort & Inspection: no cough, labored, no retractions and tachypneic Auscultation: clear to auscultation bilaterally Cardio Rate: tachycardic Rhythm: regular rhythm GI Inspection: normal to inspection Skin General: no rashes or lesions noted Neuro General: patient alert, patient awake, patient oriented x3 and moves all extremities Speech: speech normal Extrem General: edema (Mild bilateral with right greater than left) Scores GCS [place] coma scale eye opening: Spontaneous [place] coma scale verbal response: Orientated Omar coma scale motor response: Obey commands Omar coma scale total score: 15 Course Orders Ordered: ED Orders 05/21/23 07:11 Respiratory Panel (Film Array) Stat 05/21/23 07:29 XR chest 1V Stat 05/21/23 07:30 Complete Blood Count AUTO DIFF Stat Comprehensive Metabolic Panel Stat Lactate (Lactic Acid) Stat Lipase Stat NT-proBNP (BNP-Adult 18+) Stat Procalcitonin Stat Troponin & CK Cardiac Panel Stat 05/21/23 07:31 EKG-12 Lead Stat 05/21/23 07:51 Urinalysis and Microscopic Stat 05/21/23 08:01 CT angio chest PE protocol Stat Discontinued Medications Apixaban (Apixaban 5 Mg Tablet) 10 mg PO NOW ONE Stop: 05/21/23 10:17 Last Admin: 05/21/23 10:29 Dose: 10 mg Documented By: LORI Sodium Chloride (Normal Saline 0.9%) 1,000 mls @ 500 mls/hr IV BOLUS ONE Stop: 05/21/23 10:00 Last Infusion: 05/21/23 10:05 Dose: Infused Documented By: Admin: 05/21/23 08:34 Dose: 500 mls/hr Documented By: LORI Vital Signs Vital signs: Vital Signs - 8 hr 05/21/23 07:19 05/21/23 07:20 05/21/23 07:20 Temperature Pulse Rate 118 H 120 H Respiratory Rate Blood Pressure 169/112 H Pulse Oximetry 87 L 92 Oxygen Delivery Method 05/21/23 07:30 05/21/23 07:32 05/21/23 07:32 Temperature Pulse Rate 113 H 110 H Respiratory Rate 31 H 32 H Blood Pressure 162/104 H Pulse Oximetry 93 94 Oxygen Delivery Method 05/21/23 07:33 05/21/23 08:00 05/21/23 08:00 Temperature 99.3 F Pulse Rate 118 H 106 H Respiratory Rate 26 H 29 H Blood Pressure 169/112 H 143/89 H Pulse Oximetry 93 94 Oxygen Delivery Method Room Air 05/21/23 08:30 05/21/23 09:00 05/21/23 09:30 Temperature Pulse Rate 102 H 93 H 90 Respiratory Rate 26 H 24 24 Blood Pressure Pulse Oximetry 94 94 94 Oxygen Delivery Method 05/21/23 09:45 05/21/23 09:45 05/21/23 10:00 Temperature Pulse Rate 100 H 93 H Respiratory Rate 28 H 28 H Blood Pressure 151/88 H Pulse Oximetry 95 94 Oxygen Delivery Method 05/21/23 10:00 Temperature Pulse Rate Respiratory Rate Blood Pressure 137/81 Pulse Oximetry Oxygen Delivery Method Medical Decision Making Medical Records Medical records reviewed: Yes I reviewed the patient's medical records. Lab Data Lab results reviewed: Yes I reviewed the patient's lab results. 05/21/23 07:30 05/21/23 07:30 Labs: Lab Results 05/21/23 05/21/23 05/21/23 Range/Units 07:11 07:30 07:51 WBC 18.9 H (4.5-11.0) X10^3/uL RBC 5.46 (4.5-5.9) X10^6/uL Hgb 16.8 (13.5-17.5) g/dL Hct 49.5 (41-53) % MCV 90.7 (80-100) fL MCH 30.7 (26-34) PG MCHC 33.8 (30-36) % RDW 14.2 (11.6-14.8) % Plt Count 167 (150-400) X10^3/uL Neut % (Auto) 85.1 H (50-75) % Lymph % (Auto) 4.8 L (25-40) % [place] % (Auto) 9.9 (3-14) % Eos % (Auto) 0.2 L (2-4) % Baso % (Auto) 0.0 (0-2) % Neut # (Auto) 17616 H (7524-6433) /uL Lymph # (Auto) 900 L (9633-7602) /uL [place] # (Auto) 1900 H (0-900) /uL Eos # (Auto) 0 (0-450) /uL Baso # (Auto) 0 (0-100) /uL Sodium 132 L (137-145) mmol/L Potassium 4.0 (3.4-5.1) mmol/L Chloride 104 (98-107) mmol/L Carbon Dioxide 22 (22-32) mmol/L BUN 20 (9-20) mg/dL Creatinine 0.68 (0.66-1.25) mg/dL Estimated GFR > 60 (>60) mL/min BUN/Creatinine Ratio 29.4 H (6-22) Glucose 108 (80-110) mg/dL Lactate 1.5 (0.7-2.1) mmol/L Calcium 8.5 (8.4-10.2) mg/dL Total Bilirubin 1.1 (0.2-1.3) mg/dL AST 31 (17-59) IU/L ALT 23 (<50) IU/L Alkaline Phosphatase 98 (38-126) U/L Total Creatine Kinase 38 L (55-170) U/L Troponin I 0.021 (0.01-0.034) ng/mL NT-Pro-B Natriuret Pep 2620 H (<125) pg/mL Total Protein 7.1 (6.3-8.2) g/dL Albumin 3.1 L (3.5-5.0) g/dL Globulin 4.0 (1.7-4.1) g/dL Albumin/Globulin Ratio 0.8 L (1.0-2.8) Lipase 25 (23-300) U/L Procalcitonin 0.14 (<0.5) ng/mL Urine Color Yellow Urine Appearance Clear Urine pH 7.5 (4.5-8.0) Ur Specific [place] 1.020 (1.000-1.035) Urine Protein 1+ H (Negative) Urine Glucose (UA) Negative (Negative) g/dL Urine Ketones Negative (NEGATIVE) Urine Occult Blood Negative (Negative) Urine Nitrate Negative (Negative) Urine Bilirubin Negative (NEGATIVE) Urine Urobilinogen 2.0 H (0.2) E.U./dL Ur Leukocyte Esterase Negative (NEGATIVE) Urine RBC None seen (0-5/HPF) Urine WBC 0-1/hpf (0-5/HPF) Ur Squamous Epith Cells None seen (0-5/HPF) Amorphous Sediment 1+ Urine Bacteria None seen (None) Ur Culture Indicated? Cult not indicated Chlamy pneumoniae PCR Not detected (Not Detect) Adenovirus (PCR) Not detected (Not Detect) B.parapertussis DNA PCR Not detected (Not Detecte) Coronavirus OC43 (PCR) Not detected (Not Detect) Coronavirus HKU1 (PCR) Not detected (Not Detect) Coronavirus 229E (PCR) Not detected (Not Detect) SARS-CoV-2 (PCR) Detected H (Not Detecte) Coronavirus NL63 (PCR) Not detected (Not Detect) Human Metapneumovir PCR Not detected (Not Detect) Influenza Type A (PCR) Not detected (Not Detect) Influenza Type B (PCR) Not detected (Not Detect) M. pneumoniae (PCR) Not detected (Not Detect) Parainfluenza 1 (PCR) Not detected (Not Detect) Parainfluenza 2 (PCR) Not detected (Not Detect) Parainfluenza 3 (PCR) Not detected (Not Detect) Parainfluenza 4 (PCR) Not detected (Not Detect) RSV (PCR) Not detected (Not Detect) Entero/Rhino (PCR) Not detected (Not Detect) Imaging Data Chest x-ray: Radiologist's Impression: PROCEDURE: XR CHEST 1V INDICATIONS: SOB recent hx of covid TECHNIQUE: One view of the chest was acquired. COMPARISON: [facility], CT, CT ANGIO CHEST PE PROTOCOL, 05/10/2023, 14:37. [facility], CR, XR CHEST 1V, 05/10/2023, 12:57. FINDINGS: Surgical changes and devices: Prior cervical disc replacement surgery. Lungs and pleura: Redemonstration of pulmonary emphysematous changes and hyper inflation. Persistent scarring of the bilateral lung bases with decreased conspicuity of patchy bibasilar opacities and likely small bilateral pleural effusions. No pneumothorax. Mediastinum: Mediastinal contours appear normal. Heart size is normal. Bones and chest wall: No suspicious bony lesions. Overlying soft tissues appear unremarkable. IMPRESSION: 1. Persistent but decreased conspicuity of patchy bibasilar airspace opacities suspected to represent aspiration pneumonia/multifocal pneumonia on previous CT. Small bilateral pleural effusions. 2. No new focal airspace disease identified. 3. Stable background pulmonary emphysematous changes and bibasilar scarring. CT scan - chest: Radiologist's Impression: PROCEDURE: CT ANGIO CHEST PE PROTOCOL INDICATIONS: Chest pain, shortness of breath, tachycardia TECHNIQUE: After the administration of intravenous contrast, 2 mm thick sections acquired from the pulmonary apices to the posterior costophrenic angles. 3-dimensional maximum intensity projection (MIP) coronal and sagittal reformats were then acquired through the thorax. For radiation dose reduction, the following was used: automated exposure control, adjustment of mA and/or kV according to patient size. COMPARISON: [facility], CT, CT ANGIO CHEST PE PROTOCOL, 05/10/2023, 14:37. FINDINGS: Image quality: Diagnostic. Pulmonary arteries: Pulmonary arteries are within normal limits for size. There are small, acute pulmonary emboli involving the proximal segmental pulmonary arteries of the medial right lower lobe (118/series 4). This is a new finding. Otherwise, no other areas of acute pulmonary emboli identified. No evidence for acute right-sided heart strain. Lungs and pleura: Persistent bibasilar consolidations in the dependent portions of the lower lobes. No evidence for cavitation. This is again superimposed over background scarring and underlying centrilobular pulmonary emphysematous changes. Trace bilateral pleural effusions. No pneumothorax. Stable appearance of multiple calcified granulomas. Mediastinum: Heart size is normal, without pericardial effusion. Coronary atherosclerotic vascular calcifications are noted. No mediastinal or hilar adenopathy by size criteria. However, persistent scattered mediastinal lymph nodes more notable for number rather than size which are likely reactive in etiology. Thoracic aorta is normal in caliber and enhancement. Esophagus is normal in caliber, without hiatal hernia. Bones and chest wall: No suspicious bony lesions. Ribs and thoracic spine appear intact throughout. No axillary or supraclavicular adenopathy. No thyroid nodules which require sonographic follow up, per consensus guidelines. Upper Abdomen: Visualized upper abdominal solid organs appear normal in the early arterial phase of enhancement. IMPRESSION: 1. New, small acute pulmonary emboli involving the proximal segmental pulmonary arteries of the right lower lobe. No evidence for pulmonary infarction although this involves region of previously described dense bibasilar consolidations which may represent multifocal pneumonia/aspiration pneumonia. Follow-up imaging recommended after appropriate treatment to document resolution of findings. 2. No evidence for acute right-sided heart strain. 3. Stable appearance of background centrilobular pulmonary emphysema and bibasilar scarring. 4. Atherosclerosis. ECG Data Attestation: I personally reviewed and interpreted this ECG as follows: Interpretation: Sinus tachycardia Ventricular rate 115 Left axis deviation LVH Nonspecific ST T wave changes most likely related to LVH MDM Narrative Medical decision making narrative: Patient is afebrile. Does have quite a bit of air hunger and is tachypneic although not necessarily hypoxic. He is still COVID positive. CT scan of the chest does show right-sided pulmonary embolism. There was no right heart strain. He is no chest pain. I suspect that his presenting symptoms today are multifactorial to include COVID, PE and most likely an underlying COPD as he is a smoker. Given his presentation today and his comorbidities and the new pulmonary embolism patient does require admission to the hospital. Discussed the case with Dr. Wolf. Will start on Eliquis. No indication for antibiotics. Discussed the need for admission with the patient. He expressed understanding and agreement with plan. Discharge Plan Departure Patient Disposition: Admitted As Inpatient Clinical Impression: COVID-19, Pulmonary embolism, Acute respiratory distress Admit Date/Time: 05/21/23 10:16 Admit Provider: Albert Wolf
[2023-05-21 08:05] LABS: Procalcitonin 0.14 ng/mL (<0.5)
[2023-05-21 08:10] LABS: Amorphous Sediment Urine 1+; Bacteria Urine None Seen; Culture Indicated Urine Cult Not Indicated; RBC Urine None Seen (0-5/HPF); Squamous Epithelial Cell Urine None Seen (0-5/HPF); WBC Urine 0-1/HPF (0-5/HPF)
[2023-05-21] MEDS: SODIUM CHLORIDE 0.9% 1,000 ML 500 ML IV (08:34)
[2023-05-21 08:51] LABS: Adenovirus Not Detected (Not Detect); B. parapertussis Not Detected (Not Detecte); Bordetella pertussis Not Detected (Not Detect); Chlamydophila pneumoniae Not Detected (Not Detect); Coronavirus 229E Not Detected (Not Detect); Coronavirus HKU1 Not Detected (Not Detect); Coronavirus NL 63 Not Detected (Not Detect); Coronavirus OC43 Not Detected (Not Detect); Human Metapneumovirus Not Detected (Not Detect); Human Rhinovirus/Enterovirus Not Detected (Not Detect); Influenza A Not Detected (Not Detect); Influenza B Not Detected (Not Detect); Mycoplasma pneumoniae Not Detected (Not Detect); Parainfluenza Virus 1 Not Detected (Not Detect); Parainfluenza Virus 2 Not Detected (Not Detect); Parainfluenza Virus 3 Not Detected (Not Detect); Parainfluenza Virus 4 Not Detected (Not Detect); Respiratory Syncytial Virus Not Detected (Not Detect)
[2023-05-21 08:59] LABS: SARS- CoV-2 Detected (Not Detecte)
[2023-05-21] MEDS: APIXABAN 5 MG TABLET 10 MG PO ×2 (10:29→20:03)
--- NOTE | 2023-05-21 12:33 | DI.ECHO.S_ITS ---
[place] [facility]---------+ [facility] +---------+ : : [address] : : : : [id number] : : : : Phone: [phone]+ Echocardiogram Report + + :Name: HEDY PRADO Study Date: 05/22/2023 Height: 70 in : :[facility] ReadingLocation: Weight: 145 lb : : Gender: Male BSA: 1.8 m2 : :: 1955 Age: 68 yrs BP: 142/90 mmHg: :Reason For Study: PULMONARY EMBOLISM : :Ordering Physician: ROCK, : :CORINNA Performed By: Caroline Valdes : :Referring: CORINNA WILKERSON : + + Interpretation Summary 1) Normal left ventricular thickness, size, wall motion, and systolic function (EF 55-60%). 2) Normal right ventricular size with low normal function. 3) Aortic valve is calcific but has no stenosis or regurgitation. 4) Compared to the echo done 04/04/2018, no significant change. Procedure: A two-dimensional transthoracic echocardiogram with color flow and Doppler was performed. The study quality was technically difficult. Comparison is made with the echocardiogram of 04/04/2018. The patient was in atrial fibrillation with heart rates between 88-94 bpm during the exam. Left Ventricle: The left ventricle is normal in size and wall thickness. The ejection fraction is estimated to be 55-60%. Left ventricular systolic function appears normal without focal wall motion abnormalities. Diastolic function could not be accurately assessed due to atrial fibrillation. Right Ventricle: The right ventricle is normal size. Right ventricular systolic function is at the lower limits of normal. Atria: The left atrial size is normal. Right atrial size is normal. There is no Doppler evidence for an interatrial shunt. Mitral Valve: The mitral valve leaflets appear mildly thickened, but open well. There is trace mitral regurgitation. Aortic Valve: The aortic valve is not well visualized. The aortic valve is mildly calcified. There is no aortic valve stenosis. No aortic regurgitation is present. Tricuspid Valve: The tricuspid valve is normal in structure and function. There is trace tricuspid regurgitation. Pulmonary artery pressures cannot be estimated because of the lack of a measurable TR jet velocity. Pulmonic Valve: The pulmonic valve is not well visualized. There is no pulmonic valvular regurgitation. Great Vessels: The aortic root is normal size. The ascending aorta could not be visualized. The IVC is of normal diameter and collapses greater than 50% with a sniff. This suggests a low right atrial pressure of 3 mm Hg. Pericardium/ Pleura There is no pericardial effusion. There is no pleural effusion. MMode/2D Measurements & Calculations LVIDd: 4.7 cm LVOT diam: 2.0 cm IVSd: 0.98 cm Ao root diam: 3.3 cm LVPWd: 0.78 cm LV morgan. diameter/BSA (cm/m^2): 2.6 LA A2 area: 10.5 cm2 RA long axis: 5.0 cm LA A4 area: 15.9 cm2 RA area: 16.4 cm2 LA length (vol): 5.1 cm RA vol: 45.7 ml LA vol: 27.7 ml RA : 25.1 ml/m2 LA vol index: 15.2 ml/m2 IVC diam: 0.87 cm RVD1 (basal): 3.0 cm RVD2 (mid): 2.3 cm TAPSE: 1.8 cm Doppler Measurements & Calculations Ao V2 max: 173.7 cm/sec LVOT Max Chandrakant: 95.4 cm/sec Ao V2 mean: 128.5 cm/sec LV V1 max P.6 mmHg Ao max P.1 mmHg LV V1 VTI: 18.2 cm Ao mean P.2 mmHg SHEILA(I,D): 2.1 cm2 Ao V2 VTI: 26.8 cm SHEILA(V,D): 1.7 cm2 sev ratio: 0.68 SHEILA indexed to BSA (cm^2/m^2): 1.1 MV E max chandrakant: 81.7 cm/sec PA pr(Accel): 46.9 mmHg MV A max chandrakant: 2.9 cm/sec MV E/A: 28.3 Med Peak E' Chandrakant: 11.3 cm/sec E/E' med: 7.2 Lat Peak E' Chandrakant: 7.2 cm/sec E/E' lat: 11.3 E/e' average: 9.3 MV dec time: 0.14 sec SV(LVOT): 55.6 ml Reading Physician:12:50 PM
[2023-05-21] MEDS: predniSONE 20 MG TABLET 40 MG PO (14:07)
[2023-05-21] MEDS: ALBUTEROL/IPRATROPIUM 3 ML AMPUL INH ×2 (14:38→19:47)
--- NOTE | 2023-05-21 14:53 | PC.NURSE ---
Pt alert and oriented arrived via ED. Settling into room,some coughing but non-productive. Taking heart healthy lunch. Discussed skin care for his coccyx. Turn q2, using waffle cushion.
[2023-05-21] MEDS: AZITHROMYCIN 500 MG in DEXTROSE 5% IN WATER 250 ML 250 MG IV (15:54)
[2023-05-21] MEDS: GABAPENTIN 300 MG CAPSULE PO ×2 (15:54→20:03)
[2023-05-21] MEDS: PIPERACILLIN/TAZO 3.375 GM in SODIUM CHLORIDE 0.9% 100 ML IV (15:54)
--- NOTE | 2023-05-21 18:45 | P.HP_ITS ---
History of Present Illness History of Present Illness Chief complaint: Covid Pneumonia getting worse/temp was 103 at 6am Narrative: Mr. Khalil is a 68M with PMH ALVARO, afib/aflutter, long time smoker who recently stopped, who presents to the hospital with shortness of breath. He was admitted and discharged from the hospital about a week ago due to respiratory failure due to COVID pneumonia and possible superimposed bacterial infection. He has suspected COPD given his previous chest imaging, but has not had confirmatory testing with PFTs. When he was discharged he was feeling better and off oxygen, but over the last couple days has felt worsening cough, shortness of breath. Cough is productive. He does not have nebs at home. No chest pain. He did have transient second degree heart block last admission, his fleicanide was stopped, his atenolol dose was reduced in half. In the ED workup was done, vitals notable for afebrile, tachycardic 110s, respiratory rate 20s-30s, sats 93% on room air. Labs and imaging reviewed by me and notable for WBC 18.9, hgb 16.8, plts 167. Na 132, creatinine 0.68. BNP 2620. COVID PCR positive. Chest xray with slightly bilateral opacities and small pleural effusions. CTA chest with small PE and pulmonary emphysema. He was ordered for anticoagulation and admitted for further treatment. [facility] Medical History Sleep apnea with use of continuous positive airway pressure (CPAP) HTN (hypertension) Chronic thoracic back pain Left anterior fascicular block (LAFB) Prolonged [place] interval LBBB (left bundle branch block) Chest pain Afib Atrial flutter Surgical History Status post cataract extraction of both eyes with insertion of intraocular lens History of vasectomy Status post left rotator cuff repair Status post right rotator cuff repair H/O right inguinal hernia repair History of appendectomy History of toe surgery S/P wrist surgery No pertinent past surgical history Social History household members: spouse and children Smoking Status: Current every day smoker alcohol intake: current Meds Home Medications and Allergies Home Medications Medication Instructions Recorded Confirmed Type atorvastatin 20 mg tablet (Lipitor) 20 mg PO DAILY ##0 03/21/17 05/21/23 History gabapentin 300 mg capsule 300 mg PO TID ##0 03/21/17 05/21/23 History (Neurontin) hydrocodone 5 mg-acetaminophen 325 See Rx Instructions .Route 06/28/18 05/21/23 Rx mg tablet .COMPLEX PRN Pain, Severe (7-10) #25 tabs naproxen 250 mg tablet 500 mg (2 x 250 mg) PO BIDWM #60 06/28/18 05/21/23 Rx tabs atenolol 25 mg tablet 25 mg PO DAILY 90 days #90 tabs 05/15/23 05/21/23 Rx guaifenesin 600 mg tablet, 600 mg PO BID 7 days #14 tabs 05/15/23 05/21/23 Rx extended release 12 hr (Mucus Relief ER) lisinopril 20 mg tablet 20 mg PO DAILY 90 days #90 tabs 05/15/23 05/21/23 Rx Allergies Allergy/AdvReac Type Severity Reaction Status Date / Time No Known Drug Allergies Allergy Verified 06/27/18 13:39 Review of Systems Review of Systems Narrative: 14 systems reviewed and negative aside from what is noted in HPI Exam Vital Signs (past 8 hours): - 05/21/23 12:00 05/21/23 14:38 05/21/23 16:03 Temperature 98.3 F 97.8 F Pulse Rate 101 H 99 H 92 H Respiratory Rate 21 20 21 Blood Pressure 161/89 H 142/96 H Pulse Oximetry 92 92 98 Oxygen Delivery Method Room Air Oxygen Flow Rate 0 0 Oxygen Delivery Method Room Air Oxygen Flow Rate 0 Narrative Exam Narrative: GEN: fatigued, in respiratory distress CV: irregular, tachycardic HEENT: dry mucous membranes PULM: decreased air movement ABD: soft, nontender, nondistended EXT warm and well perfused with no edema Objective Labs 05/21/23 07:30 05/21/23 07:30 Labs: Laboratory Results - last 24 hr 05/21/23 05/21/23 05/21/23 07:11 07:30 07:51 WBC 18.9 H RBC 5.46 Hgb 16.8 Hct 49.5 MCV 90.7 MCH 30.7 MCHC 33.8 RDW 14.2 Plt Count 167 Neut % (Auto) 85.1 H Lymph % (Auto) 4.8 L [place] % (Auto) 9.9 Eos % (Auto) 0.2 L Baso % (Auto) 0.0 Neut # (Auto) 85911 H Lymph # (Auto) 900 L [place] # (Auto) 1900 H Eos # (Auto) 0 Baso # (Auto) 0 Sodium 132 L Potassium 4.0 Chloride 104 Carbon Dioxide 22 BUN 20 Creatinine 0.68 Estimated GFR > 60 BUN/Creatinine Ratio 29.4 H Glucose 108 Lactate 1.5 Calcium 8.5 Total Bilirubin 1.1 AST 31 ALT 23 Alkaline Phosphatase 98 Total Creatine Kinase 38 L Troponin I 0.021 NT-Pro-B Natriuret Pep 2620 H Total Protein 7.1 Albumin 3.1 L Globulin 4.0 Albumin/Globulin Ratio 0.8 L Lipase 25 Procalcitonin 0.14 Urine Color Yellow Urine Appearance Clear Urine pH 7.5 Ur Specific [place] 1.020 Urine Protein 1+ H Urine Glucose (UA) Negative Urine Ketones Negative Urine Occult Blood Negative Urine Nitrate Negative Urine Bilirubin Negative Urine Urobilinogen 2.0 H Ur Leukocyte Esterase Negative Urine RBC None seen Urine WBC 0-1/hpf Ur Squamous Epith Cells None seen Amorphous Sediment 1+ Urine Bacteria None seen Ur Culture Indicated? Cult not indicated Chlamy pneumoniae PCR Not detected Adenovirus (PCR) Not detected B.parapertussis DNA PCR Not detected Coronavirus OC43 (PCR) Not detected Coronavirus HKU1 (PCR) Not detected Coronavirus 229E (PCR) Not detected SARS-CoV-2 (PCR) Detected H Coronavirus NL63 (PCR) Not detected Human Metapneumovir PCR Not detected Influenza Type A (PCR) Not detected Influenza Type B (PCR) Not detected M. pneumoniae (PCR) Not detected Parainfluenza 1 (PCR) Not detected Parainfluenza 2 (PCR) Not detected Parainfluenza 3 (PCR) Not detected Parainfluenza 4 (PCR) Not detected RSV (PCR) Not detected Entero/Rhino (PCR) Not detected Assessment & Plan Assessment & Plan narrative: 1. Acute respiratory distress secondary to acute COPD exacerbation, possible pneumonia -suspect has underlying COPD, but has not had outpatient confirmatory testing -treat as COPD exacerbation, possibly exacerbated by infection -COVID positive, but no hypoxemic so not indicated for treatment currently -will treat empirically with antibiotics with zosyn and azithromycin for now -ordered sputum cultures -ordered steroids and nebs for COPD 2. Acute small PE -doubt this is most contributory to his respiratory distress -suspect secondary to infection and being sedentary while ill -start eliquis -not requiring oxygen at admission 3. Former smoker, recently quit 4. Atrial fibrillation -continue atenolol -now on eliquis for PE I have discussed plan and obtained history from patient and family. I have discussed plan of care with ED physician and bedside nurse. I have reviewed labs, imaging CODE: Full Proxy: Loc Khalil, family Quality VTE Deep Vein Thrombosis/Pulmonary Embolism Present on Admission: No MIPS - Meds 'Current medications' to include all prescriptions, [id number] products, herbals, cannabis/cannabidiol products, and vitamin/mineral/dietary (nutritional) supplements. I have utilized all available resources to obtain, update, or review the patient?s current medications. [If Yes, STOP here]: Yes
[2023-05-22] VITALS (9 sets, daily range): BP systolic 109–142; BP diastolic 60–90; PULSE 71–109; RESP 16–23; TEMP 36.1–36.7; O2SAT 92–97
[2023-05-22] MEDS: PIPERACILLIN/TAZO 3.375 GM in SODIUM CHLORIDE 0.9% 100 ML IV ×4 (00:07→23:36)
[2023-05-22] MEDS: ALBUTEROL 2.5 MG/3 ML NEB (ADULT) INH (03:14)
[2023-05-22 05:30] LABS: BUN Creatinine Ratio 29.9 (6-22); Blood Urea Nitrogen 20 mg/dL (9-20); Calcium 8.8 mg/dL (8.4-10.2); Carbon Dioxide 22 mmol/L (22-32); Chloride 105 mmol/L (98-107); Estimated Glomerular Filt Rate > 60 mL/min (>60); Glucose 141 mg/dL (80-110); HEMOLYSIS < 15 (0-50); Sodium 134 mmol/L (137-145)
--- NOTE | 2023-05-22 06:16 | PC.NURSE ---
pt was able to sleep after having a condom catheter place at the beginning of shift around 2100. Pt refusing waffle cushion due to discomfort. Pt is a heavy smoker and states even though he isn't smoking as much he still craves the nicotine. Pt was kept on tele due to history of atrial flutter. Pt was SR with 1st degree AVB and BBB, pt heart rate dropped down to 38 last night but it didn't sustain and pt was asymptomatic.
[2023-05-22] MEDS: ALBUTEROL/IPRATROPIUM 3 ML AMPUL INH ×3 (08:44→19:50)
[2023-05-22] MEDS: NICOTINE 14 PATCH 14 MG TOP (09:00)
[2023-05-22] MEDS: APIXABAN 5 MG TABLET 10 MG PO ×2 (09:00→22:03)
[2023-05-22] MEDS: predniSONE 20 MG TABLET 40 MG PO (09:00)
[2023-05-22] MEDS: atenoloL 25 MG TABLET PO (09:00)
[2023-05-22] MEDS: GABAPENTIN 300 MG CAPSULE PO ×3 (09:00→22:03)
--- NOTE | 2023-05-22 11:46 | CM.DANOTE ---
Addendum entered by BREANNE Craven 05/22/23 12:05: ADD: Return call from [facility] on-call weekend RN and she states that [facility] contacted pt on 05/17/23 for SOC scheduling and pt declined a need for HH services at that time and [facility] closed his new intake out. BF Original Note: Patient is a 68 yo male READMIT on 05/21/23 for SOB, COPD, PEs. Pt has [facility] and [employer] for insurance and his PCP is Pradeep Gardner. EMR was reviewed. Per MD, pt was recently admitted and discharged after being COVID+ pneumonia and returns for readmission due to increased SOB and fever and admitted for COPD exac with small PEs and weakness. Pt still testing COVID+ but on room air. Per RT, pt seems to be breathing well and remains on room air and no further RT needs at this time. PT ordered and pending to r/o any d/c needs and confirm pt's steadiness and ambulation. SW attempted to call into pt's room on room phone and cell phone due to COVID precautions and no answer. SW called the house phone and spoke to pt's son Loc from pt's contact list and explained role. Clyde Monterroso confirms that pt lives at home in [place] with his spouse (Loc's mom) Clara and clyde Monterroso lives there as well along with a family friend who lives on the property and can assist as needed. Pt is independent at baseline and completes his ADLs and son confirms that pt getting COVID and having SOB made him worried and pt has stopped smoking and has attempted to get more active and healthy since returning home. Clyde Monterroso states that pt had been improving and was not needing physical assist with mobility and seemed to be making good progress but then developed fever and weakness. Clyde Monterroso unsure if [facility] services had been started and unsure if pt will need HH at d/c as son feels pt will likely progress with his abilities quickly after this discharge. Son confirms that pt is retired now from both the [employer] and also from his [employer] job but spouse still works realtime captioner and son works from home mostly but is also on-call for his job so sometimes has to leave the house for work. Son states though that pt is rarely home alone between his spouse, clyde Monterroso, and their family friend on the property and currently no concerns with eventual d/c home. SW left msg for weekend on-call [facility] account manager sales representative to determine if they completed SOC for pt since his discharge home on 05/15/23 last week or if all new referral needed at d/c if HH recommended still. SW faxed initial clinicals to [facility] to review. Plan: SW to follow for PT eval and recommendations to determine if HH needed for discharge home with family assist and confirmation from [facility] if pt is current and only needs Resume Orders. BREANNE Craven Discharge Planning/Care Management CM Discharge Assessment Start: 05/22/23 11:42 Freq: Status: Active Protocol: Document 05/22/23 11:43 BF (Rec: 05/22/23 11:45 BF [id number]) Discharge Planning Assessment Assigned Maintenance Analyst BREANNE Zhang DPOA/Assigned Designee Name informally spouse Clara Contact Information [phone] Advance Directives? No Advance Directives on File No History Provided By Patient,Family Member,Medical Record Has Patient been admitted in last 30 Yes days? Comment last discharged home on to home with [facility], readmit Prior Living Arrangements House Household Members spouse,children Type of transporation used prior to Relies on Others admit Independent with ADL's Yes Is patient alert and oriented? Yes Needs Assistance With Home Chores / Shopping Caregiver for Another No Community Services used prior to Physical Therapy,Home Health admission: Nurse Patient/Family Preference Home with Home Health Comment Trying to confirm with [facility] that pt open to services Barriers to Discharge No Discharge Plan Home with Home Health Community Services Physical Therapy,Home Health Nurse Transportation Arrangement Family to provide transport home. Referrals Initiated Home Health Additional Comment [facility] referral made, waiting to hear if Resume services or new referral needed if they didn't start pt on service after last admit Review Status In Process Please Provide Date Initial DC 05/22/23 Assessment Was Performed Next Review Type Continued Stay Review
--- NOTE | 2023-05-22 14:07 | PT.IIE ---
Current Diagnoses Pneumonia, unspecified organism (05/21/23) Surgical History (Last Reviewed 05/21/23 @ 18:45 by Albert Wolf MD) H/O right inguinal hernia repair History of appendectomy History of toe surgery History of vasectomy No pertinent past surgical history S/P wrist surgery Status post cataract extraction of both eyes with insertion of intraocular lens Status post left rotator cuff repair Status post right rotator cuff repair Medical History (Last Reviewed 05/21/23 @ 18:45 by Albert Wolf MD) Afib Atrial flutter Chest pain Chronic thoracic back pain HTN (hypertension) LBBB (left bundle branch block) Left anterior fascicular block (LAFB) Prolonged [place] interval Sleep apnea with use of continuous positive airway pressure (CPAP) Physical Therapy Inpatient Evaluation/Re-Eval M1 PT/OT-IP Prior Functional Status Start: 05/22/23 12:57 Freq: NEEDED Status: Active Protocol: Document 05/22/23 14:07 DLM (Rec: 05/22/23 14:24 DLM [id number]) Medical Review Prior Functional Status Medical History Reviewed Yes Diet/Fluid Consistency Regular Communication WFL Mobility and Gait Independent without device, uses cane as needed. He likes to ride his Motorcycle. Activities of Daily Living and IADL's Independent Prior Functional Level (Other details) He has been needing more assistance since getting COVID due to weakness and shortness of breath. He discharged home 05/15/23 after last hospitalization. Social History Household Members spouse,children Living Arrangements House Number of Floors (Floors) One Floor Number of Stairs To Enter/Railing? 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 His Son lives at the house and works from home. Pt has a family friend living on on the property who can help as needed. He reports he got a 4WW from the [employer] after prior hospitalization. M2 PT-IP Current Condition Start: 05/22/23 12:57 Freq: NEEDED Status: Active Protocol: Document 05/22/23 14:07 DLM (Rec: 05/22/23 14:24 DLM [id number]) Physical Therapy Current Condition Current Condition Evaluation Date 05/22/23 Treatment Diagnosis COVID-19, PE Onset Date 05/21/23 M3 PT-IP Subjective Start: 05/22/23 12:57 Freq: NEEDED Status: Active Protocol: Document 05/22/23 14:07 DLM (Rec: 05/22/23 14:24 DL [id number]) Subjective Physical Therapy Visit Type Type Initial Evaluation Visit Start Time 13:35 Visit Stop Time 14:07 Total Visit Minutes 32 Number of SPINNER HYDRAULIC Visits 0 Physical Therapy Visit Comments Patient Comments He reports feeling better today. He felt stronger getting up to the chair Patient Goals Discharge home Therapy Pain Assessment Pain When Pain Assessed During Mobility Pain Present Pain Present Denied Pain M4 PT-IP Mobility and Gait Start: 05/22/23 12:57 Freq: NEEDED Status: Active Protocol: Document 05/22/23 14:07 DLM (Rec: 05/22/23 14:24 DL [id number]) PT-Bed Mobility Assessment Scooting Scooting to Edge of Bed Independent PT-Transfer Assessment Sit to and From Stand Sit to and from Stand Independent,Use of Upper Extremities Equipment Transfer Assistive Device Front Wheeled Walker Transfers Transfer Destination Chair Transfer Technique Stand Step Pivot Transfer Ability Level of Assist Independent,Use of Upper Extremities Comments Mobility Comments He needs UE support to stand up from the recliner. He noted mild shortness of breath with 5 x sit-stand this visit. Gait Assessment Gait Gait Assistance Required: Standby Assistance Distance (Feet) 45 Assistive Devices Assistive Device Front Wheeled Walker Gait Deviations General Gait Pattern Decreased Stride Length Factors Limiting Gait Function Factors Limiting Gait Function Decreased Activity Tolerance Comments Gait Comments No losses of balance observed during gait with the FWW. Pt requests to use the FWW this visit due to prior weakness and decreased activity tolerance that led to this admission. PT-Balance Assessment Sitting Balance and Reactions Static Sitting Balance Ability Normal Dynamic Sitting Balance Ability Good Standing Balance and Reactions Static Standing Balance Ability Good Dynamic Standing Balance Ability Good Device Used FWW M5 PT-IP Objective Assessments Start: 05/22/23 12:57 Freq: NEEDED Status: Active Protocol: Document 05/22/23 14:07 DLM (Rec: 05/22/23 14:24 DL [id number]) Orientation Orientation/Cognition Level of Alertness Alert Orientation Name,Age,Birthday,Month,Date, Year,Day of Week,Place, Situation Language Function Ability No Deficits Noted Safety Awareness Understands Safety Issues Memory Description No Deficits Noted Comments hard of hearing Gross Range of Motion Upper Extremity ROM Assessment Within Functional Limits Impairments hx rotator cuff repairs Lower Extremity ROM Assessment Within Functional Limits Strength Upper Extremity Strength Assessment Within Functional Limits Lower Extremity Strength Assessment Within Functional Limits Comments Strength Comments noted right foot is warm and swollen, pt reports no pain, notified his nurse Coordination Assessment Gross Coordination Gross Coordination WNL Sensation Assessment Sensation Gross Sensation WNL Muscle Tone Muscle Tone WNL Yes M6 PT-IP Treatment Start: 05/22/23 12:57 Freq: NEEDED Status: Active Protocol: Document 05/22/23 14:07 DLM (Rec: 05/22/23 14:24 DLM [id number]) Physical Therapy Treatment Education Education Provided Safety Other Treatments Other Treatment Performed educated pt in safety to slowly progress activity after discharge and prevent falls M7 PT-IP Assessment and Plan Start: 05/22/23 12:57 Freq: NEEDED Status: Active Protocol: Document 05/22/23 14:07 DLM (Rec: 05/22/23 14:24 DLM [id number]) PT Summary Assessment and Plan Potential Rehabilitation Potential Good Status of Condition at Evaluation Evolving Summary Impairments Strength,Bed Mobility, Transfers,Gait,Activity Tolerance Assessment Summary Felix is alert and sitting up in the recliner. He reports no difficulty getting out of bed today. He reports improved breathing and activity tolerance today. He was able to ambulate in the room with the FWW. Mild shortness of breath and fatigue after activity that resolved quickly with seated rest break. His O2 sat is 92% on room air after gait. He is eager to discharge home. He reports good family/friend support at home. He appears safe to discharge home when medically cleared. He could benefit from home health P.T. to progress his functional strength and activity tolerance. Will continue to follow him while he is hospitalized to help progress him off of the walker for gait. Goals Bed Mobility Goal Independent Gait Goal Independent Gait Distance 100 feet Other Goals up/down one step independently Days to Meet Goals 3 Frequency of Treatment Frequency Of Treatment Once a Day Treatment Plan Physical Therapy Treatment Plan Bed Mobility Training,Transfer Training,Gait Training, Therapeutic Exercise,Discharge Planning,Neuromuscular Re-ed Precautions Other Precautions small PE Recommendations To Nursing Amount of Assist Needed Standby Assistance Discharge Recommendations PT Discharge Recommendations Home with Assistance,Home Health Transportation Needs at Discharge Private Vehicle
--- NOTE | 2023-05-22 14:08 | DI.US.S_ITS ---
PROCEDURE: US PERIPH VENOUS LOW EXTREM RT INDICATIONS: dvt? TECHNIQUE: Real-time imaging, as well as color and pulse Doppler interrogation, were performed of the lower extremity deep veins from the inguinal ligament to the popliteal fossa, with documentation of the visualized calf veins. COMPARISON: [facility], CT, CT ANGIO CHEST PE PROTOCOL, 05/21/2023, 8:13. FINDINGS: Filling defect within the popliteal vein in the posterior tibial veins. Remaining lower extremity vessels are clear of thrombus. IMPRESSION: Deep venous thrombosis of the popliteal vein and posterior tibial veins. Ordering provider not notified due to the presence of PE on comparison CT. Dictated by: Noel Rico M.D. on 05/22/2023 at 15:23 Approved by: Noel Rico M.D. on 05/22/2023 at 15:25
--- NOTE | 2023-05-22 15:22 | PM.PN.1 ---
Subjective Subjective Date Patient Seen: 05/22/23 Time Patient Seen: 08:00 Interval history: He feels much better today. He thinks the nebs especially worked. Exam Vital Signs (past 8 hours): - 05/22/23 08:00 05/22/23 08:44 05/22/23 09:30 Temperature 97.3 F L Pulse Rate 94 H 109 H Respiratory Rate 20 16 Blood Pressure 142/90 H Pulse Oximetry 94 92 Oxygen Delivery Method Room Air Room Air Oxygen Flow Rate 0 05/22/23 12:50 05/22/23 15:11 Temperature 98.1 F Pulse Rate 98 H 94 H Respiratory Rate 17 18 Blood Pressure 139/72 Pulse Oximetry 93 93 Oxygen Delivery Method Room Air Oxygen Flow Rate 0 Oxygen Delivery Method Room Air Oxygen Flow Rate 0 Narrative Exam Narrative: GEN: no acute distress CV: irregular, tachycardic HEENT: dry mucous membranes PULM: decreased air movement ABD: soft, nontender, nondistended EXT warm and well perfused with no edema Objective Labs 05/21/23 07:30 05/22/23 04:45 Labs: Laboratory Results - last 24 hr 05/22/23 04:45 Sodium 134 L Potassium 4.0 Chloride 105 Carbon Dioxide 22 BUN 20 Creatinine 0.67 Estimated GFR > 60 BUN/Creatinine Ratio 29.9 H Glucose 141 H Calcium 8.8 PFSH Medical History Sleep apnea with use of continuous positive airway pressure (CPAP) HTN (hypertension) Chronic thoracic back pain Left anterior fascicular block (LAFB) Prolonged [place] interval LBBB (left bundle branch block) Chest pain Afib Atrial flutter Surgical History Status post cataract extraction of both eyes with insertion of intraocular lens History of vasectomy Status post left rotator cuff repair Status post right rotator cuff repair H/O right inguinal hernia repair History of appendectomy History of toe surgery S/P wrist surgery No pertinent past surgical history Social History household members: spouse and children Smoking Status: Current every day smoker alcohol intake: current Assessment & Plan Assessment & Plan narrative: 1. Acute respiratory distress secondary to acute COPD exacerbation, possible pneumonia -suspect has underlying COPD, but has not had outpatient confirmatory testing -treat as COPD exacerbation, possibly exacerbated by infection -COVID positive, but no hypoxemic so not indicated for treatment currently -will treat empirically with antibiotics with zosyn and azithromycin for now -ordered sputum cultures -ordered steroids and nebs for COPD 2. Acute small PE -doubt this is most contributory to his respiratory distress -suspect secondary to infection and being sedentary while ill -start eliquis -not requiring oxygen at admission 3. Former smoker, recently quit -nicotine patch 4. Atrial fibrillation -continue atenolol -now on eliquis for PE I have discussed plan and obtained history from patient and family. I have discussed plan of care with ED physician and bedside nurse. I have reviewed labs, imaging CODE: Full Proxy: Loc Khalil, family Quality VTE Deep Vein Thrombosis/Pulmonary Embolism Present on Admission: No
[2023-05-22] MEDS: AZITHROMYCIN 500 MG in DEXTROSE 5% IN WATER 250 ML 250 MG IV (16:59)
[2023-05-23 04:59] VITALS: BP 126/80; PULSE 74; RESP 16; TEMP 36.3; O2SAT 96
[2023-05-23 06:29] LABS: Hematocrit 38.6 % (41-53); Mean Corpuscular HGB Conc 33.6 % (30-36); Mean Corpuscular Hemoglobin 30.4 PG (26-34); Mean Corpuscular Volume 90.4 fL (80-100); Platelet Count 166 X10^3/uL (150-400); Red Blood Cell Count 4.27 X10^6/uL (4.5-5.9); Red Cell Distribution Width 14.1 % (11.6-14.8); White Blood Cell Count 17.2 X10^3/uL (4.5-11.0)
[2023-05-23 06:37] LABS: BUN Creatinine Ratio 37.1 (6-22); Blood Urea Nitrogen 26 mg/dL (9-20); Calcium 8.4 mg/dL (8.4-10.2); Carbon Dioxide 23 mmol/L (22-32); Chloride 105 mmol/L (98-107); Estimated Glomerular Filt Rate > 60 mL/min (>60); Glucose 95 mg/dL (80-110); HEMOLYSIS 19 (0-50); Potassium 3.8 mmol/L (3.4-5.1); Sodium 131 mmol/L (137-145)
[2023-05-23] MEDS: ALBUTEROL/IPRATROPIUM 3 ML AMPUL INH ×2 (07:50→12:23)
[2023-05-23 08:00] VITALS: BP 133/78; PULSE 80; RESP 18; TEMP 36.7; O2SAT 97
[2023-05-23] MEDS: APIXABAN 5 MG TABLET 10 MG PO (09:25)
[2023-05-23] MEDS: PIPERACILLIN/TAZO 3.375 GM in SODIUM CHLORIDE 0.9% 100 ML IV (09:25)
[2023-05-23] MEDS: atenoloL 25 MG TABLET PO (09:26)
[2023-05-23] MEDS: GABAPENTIN 300 MG CAPSULE PO (09:26)
[2023-05-23] MEDS: NICOTINE 14 PATCH 14 MG TOP (09:26)
[2023-05-23] MEDS: predniSONE 20 MG TABLET 40 MG PO (09:26)
--- NOTE | 2023-05-23 11:23 | PT.IPTN ---
Current Diagnoses Pneumonia, unspecified organism (05/21/23) Physical Therapy Treatment Note M2 PT-IP Current Condition Start: 05/22/23 12:57 Freq: NEEDED Status: Active Protocol: Document 05/22/23 14:07 DLM (Rec: 05/22/23 14:24 DLM [id number]) Physical Therapy Current Condition Current Condition Evaluation Date 05/22/23 Treatment Diagnosis COVID-19, PE Onset Date 05/21/23 M3 PT-IP Subjective Start: 05/22/23 12:57 Freq: NEEDED Status: Active Protocol: Document 05/23/23 11:46 ZF (Rec: 05/23/23 12:00 ZF [id number]) Subjective Physical Therapy Visit Type Type Treatment Note Visit Start Time 11:23 Visit Stop Time 11:40 Total Visit Minutes 17 Number of [employer] Visits 1 Physical Therapy Visit Comments Patient Comments Pt reports that he is ready to go. Therapy Pain Assessment Pain Present Pain Present Denied Pain M4 PT-IP Mobility and Gait Start: 05/22/23 12:57 Freq: NEEDED Status: Active Protocol: Document 05/23/23 11:46 ZF (Rec: 05/23/23 12:00 ZF [id number]) PT-Bed Mobility Assessment Supine to Sit Supine to Sit Independent PT-Transfer Assessment Sit to and From Stand Sit to and from Stand Independent,Use of Upper Extremities Equipment Transfer Assistive Device Front Wheeled Walker Transfers Transfer Destination Bed Transfer Technique Stand Step Pivot Transfer Ability Level of Assist Independent,Use of Upper Extremities Comments Mobility Comments Pt Ind for bed mobility. STS from EOB requires UE, Ind. Pt amb x100' in room w/2ww. Pt is INd for amb using 2ww. Dems reduced step length. No LOB or instability. Uses bathroom Ind. O2sat w/activity: drops to 88%, increases to 92% w/ seated RB and PLB. Gait Assessment Gait Gait Assistance Required: Independent Distance (Feet) 100 Assistive Devices Assistive Device Front Wheeled Walker Gait Deviations General Gait Pattern Decreased Stride Length Factors Limiting Gait Function Factors Limiting Gait Function Decreased Activity Tolerance Comments Gait Comments See Mobility Comments. PT-Balance Assessment Sitting Balance and Reactions Static Sitting Balance Ability Normal Dynamic Sitting Balance Ability Normal Standing Balance and Reactions Static Standing Balance Ability Good Dynamic Standing Balance Ability Good Device Used FWW M5 PT-IP Objective Assessments Start: 05/22/23 12:57 Freq: NEEDED Status: Active Protocol: Document 05/22/23 14:07 DLM (Rec: 05/22/23 14:24 DLM [id number]) Orientation Orientation/Cognition Level of Alertness Alert Orientation Name,Age,Birthday,Month,Date, Year,Day of Week,Place, Situation Language Function Ability No Deficits Noted Safety Awareness Understands Safety Issues Memory Description No Deficits Noted Comments hard of hearing Gross Range of Motion Upper Extremity ROM Assessment Within Functional Limits Impairments hx rotator cuff repairs Lower Extremity ROM Assessment Within Functional Limits Strength Upper Extremity Strength Assessment Within Functional Limits Lower Extremity Strength Assessment Within Functional Limits Comments Strength Comments noted right foot is warm and swollen, pt reports no pain, notified his nurse Coordination Assessment Gross Coordination Gross Coordination WNL Sensation Assessment Sensation Gross Sensation WNL Muscle Tone Muscle Tone WNL Yes M6 PT-IP Treatment Start: 05/22/23 12:57 Freq: NEEDED Status: Active Protocol: Document 05/23/23 11:46 ZF (Rec: 05/23/23 12:00 ZF [id number]) Physical Therapy Treatment Other Treatments Other Treatment Performed educated pt in safety to slowly progress activity after discharge and prevent falls M7 PT-IP Assessment and Plan Start: 05/22/23 12:57 Freq: NEEDED Status: Active Protocol: Document 05/23/23 11:46 ZF (Rec: 05/23/23 12:00 ZF [id number]) PT Summary Assessment and Plan Summary Assessment Summary Pt is pleasant and agreeable to therapy. Pt reports feeling much better and being ready for DC home. Pt amb x100' w/ 2ww, Ind. Pt dems good self monitoring skills, and takes seated RB when beginning to fatigue. O2sat:88% w/activity, increases to 92% within x2 mins. Goals Bed Mobility Goal Independent Gait Goal Independent Gait Distance 100 feet Other Goals up/down one step independently Days to Meet Goals 3 Frequency of Treatment Frequency Of Treatment Once a Day Treatment Plan Physical Therapy Treatment Plan Bed Mobility Training,Transfer Training,Gait Training, Therapeutic Exercise,Discharge Planning,Neuromuscular Re-ed Precautions Other Precautions small PE Discharge Recommendations Transportation Needs at Discharge Private Vehicle
--- NOTE | 2023-05-23 11:29 | P.DS_ITS ---
History of Present Illness History of Present Illness Date Patient Seen: 05/23/23 Chief complaint: Covid Pneumonia getting worse/temp was 103 at 6am Narrative: Per admitting provider, Mr. Khalil is a 68M with PMH ALVARO, afib/aflutter, long time smoker who recently stopped, who presents to the hospital with shortness of breath. He was admitted and discharged from the hospital about a week ago due to respiratory failure due to COVID pneumonia and possible superimposed bacterial infection. He has suspected COPD given his previous chest imaging, but has not had confirmatory testing with PFTs. When he was discharged he was feeling better and off oxygen, but over the last couple days has felt worsening cough, shortness of breath. Cough is productive. He does not have nebs at home. No chest pain. He did have transient second degree heart block last admission, his fleicanide was stopped, his atenolol dose was reduced in half. In the ED workup was done, vitals notable for afebrile, tachycardic 110s, respiratory rate 20s-30s, sats 93% on room air. Labs and imaging reviewed by me and notable for WBC 18.9, hgb 16.8, plts 167. Na 132, creatinine 0.68. BNP 2620. COVID PCR positive. Chest xray with slightly bilateral opacities and small pleural effusions. CTA chest with small PE and pulmonary emphysema. He was ordered for anticoagulation and admitted for further treatment. Discharge Providers Provider Date of admission: 05/21/23 10:16 Discharge Date: 05/23/23 Primary care physician: Pradeep Gardner MD Consults: 05/22/23 11:29 Consult to Physical Therapy Evaluate & Treat Comment: Physician Instructions: Evaluate and Treat Discharge provider: Jon Riley DO Summary Hospital Course Discharge Diagnosis: 1. Acute respiratory distress secondary to acute COPD exacerbation, possible pneumonia 2. Acute small PE 3. Former smoker, recently quit 4. Paroxysmal Atrial fibrillation 5. COVID positive Hospital Course: This is a 68 year old male with PMH of smoking, and paroxysmal atrial fibrillation admitted with difficulty breathing due to COPD exacerbation, less likely due to small PE found on CTA. He was also COVID positive. Given lack of hypoxemia he was treated with prednisone and supportive care. He was also treated empirically with antibiotics for presumed superimposed bacterial pneumonia. His symptoms improved over the course of a couple of days in the hospital, and he was discharged home. Antibiotics were not prescribed on discharge due to low probability of bacterial infection. He was given another 3 days of prednisone along with albuterol and controller medication advair for presumed COPD. For his small PE, he was treated with apixaban, for which he will take 10 mg BID for one week, followed by 5 mg BID for 3-6 months. Recommend revisiting decision for anticoagulation at that time, though with his HTN, afib and age halfway anticoagulation should be consider for stroke prevention. Time Spent with Patient Time spent: Greater than 30 minutes Exam Vital Signs (past 8 hours): - 05/23/23 04:59 05/23/23 07:52 05/23/23 08:00 Temperature 97.4 F L 98.1 F Pulse Rate 74 80 Respiratory Rate 16 18 Blood Pressure 126/80 133/78 Pulse Oximetry 96 97 Oxygen Delivery Method Room Air Oxygen Flow Rate 0 0 Oxygen Delivery Method Room Air Oxygen Flow Rate 0 Narrative Exam Narrative: GEN: no acute distress CV: RRR no m/r/g HEENT: MMM PULM: decreased air movement no wheezing rhonchi or rales. ABD: soft, nontender, nondistended EXT warm and well perfused with no edema Objective Labs 05/23/23 05:47 05/23/23 05:47 Labs: Laboratory Results - last 24 hr 05/23/23 05:47 WBC 17.2 H RBC 4.27 L Hgb 13.0 L Hct 38.6 L MCV 90.4 MCH 30.4 MCHC 33.6 RDW 14.1 Plt Count 166 Sodium 131 L Potassium 3.8 Chloride 105 Carbon Dioxide 23 BUN 26 H Creatinine 0.70 Estimated GFR > 60 BUN/Creatinine Ratio 37.1 H Glucose 95 Calcium 8.4 PFSH Medical History Sleep apnea with use of continuous positive airway pressure (CPAP) HTN (hypertension) Chronic thoracic back pain Left anterior fascicular block (LAFB) Prolonged [place] interval LBBB (left bundle branch block) Chest pain Afib Atrial flutter Surgical History Status post cataract extraction of both eyes with insertion of intraocular lens History of vasectomy Status post left rotator cuff repair Status post right rotator cuff repair H/O right inguinal hernia repair History of appendectomy History of toe surgery S/P wrist surgery No pertinent past surgical history Social History household members: spouse and children Smoking Status: Current every day smoker alcohol intake: current Discharge Plan Discharge Plan Patient Disposition: Home Provider Discharge Comment: you were admitted to the hospital with shortness of breath, likely due to COPD exacerbation. Continue steroids and a daily inhaler was prescribed, along with albuterol to take if needed for shortness of breath or wheezing. With the additional blood thinner for the blood clots found, you should stop taking ibuprofen or naproxen for pain, as this can lead to stomach bleeding. Discharge orders & Medications Prescriptions: New prednisone 20 mg Tablet 40 mg PO DAILY 3 Days Qty: 6 0RF apixaban 5 mg tablet See Rx Instructions .ROUTE .COMPLEX 90 Days Qty: 192 0RF Rx Instructions: take 10 mg BID for 6 days, followed by 5 mg BID for 84 days. fluticasone propion-salmeterol [Advair Diskus] 250-50 mcg/dose blister with device 1 inh inhalation BID 30 Days Qty: 60 0RF albuterol sulfate 90 mcg/actuation HFA aerosol inhaler 1 inh inhalation QID PRN (Reason: shortness of breath or wheezing) Qty: 8.5 0RF Continued atorvastatin [Lipitor] 20 MG tablet 20 mg PO DAILY Qty: 0 gabapentin [Neurontin] 300 MG capsule 300 mg PO TID Qty: 0 hydrocodone-acetaminophen 5-325 mg Tablet See Rx Instructions .ROUTE .COMPLEX PRN (Reason: Pain, Severe (7-10)) Qty: 25 0RF Rx Instructions: 1-2 PO q4h prn pain atenolol 25 mg Tablet 25 mg PO DAILY 90 Days Qty: 90 0RF lisinopril 20 mg tablet 20 mg PO DAILY 90 Days Qty: 90 0RF Discontinued naproxen 250 mg Tablet 500 mg PO BIDWM Qty: 60 0RF Follow up/Referrals: Pradeep Gardner MD [Primary Care Provider] - Diet/Activity/Treatments Diet: Diet as Tolerated and Regular Activity: As tolerated, no restrictions. Visit Report/Discharge Packet Stand Alone Forms: Patient Portal/API, Stroke Signs & Symptoms Discharge Data Primary Care Provider: Pradeep Gardner Quality VTE Deep Vein Thrombosis/Pulmonary Embolism Present on Admission: No
[2023-05-23 12:00] VITALS: BP 151/82; PULSE 83; RESP 18; TEMP 36.6; O2SAT 91
[2023-05-23 12:23] VITALS: PULSE 82; RESP 18; O2SAT 92
--- NOTE | 2023-05-23 14:14 | PC.NURSE ---
Discharge Note Patient A&O, VSS, RA, no complaints of pain/discomfort. Discharge packet reviewed with patient, all questions/concerns addressed. PIV/TELE discontinued. Patient able to dress self and pack all belongings. Patient reminded to leaf size picker prescriptions a preferred pharmacy. Patient taken down via wheelchair to POV.
--- NOTE | 2023-05-23 14:27 | CM.DPC ---
DCP Discharge Home Per MD, pt is medically stable to d/c home today and no identified barriers to discharge. Per [employer] HELPER, pt ambulated well with less fatigue and recovered more quickly and recommending safe d/c home with family. [facility] confirmed that pt had declined HH services last week but since they recently received orders they will contact pt after d/c to confirm he still does not want HH and if pt changes his mind and wants HH services then they do not need new orders. Plan: Patient to discharge home this morning via family POV and outpt f/u and [facility] will confirm after d/c that pt still does not want HH. BREANNE Craven
--- NOTE | 2023-05-25 12:45 | CM.DPNOTE ---
Francois from [facility] called and left a voice mail today saying they are not able to contact patient/family. He said they have tried multiple times trying to call the patient that were unsuccessful. Heather Ware CM [employer] Developer.
== END 2023-05-23 14:00 | disposition home or self-care (01) | DRG 193 ==
LOC: ED 09:55 → AC 10:17
PROVIDERS: Admitting Provider Internal Medicine; Emergency Provider Emergency Medicine; PCP Family Medicine; Referring Provider Emergency Medicine; Visit Provider Internal Medicine
DX: J18.9 Pneumonia, unspecified organism (principal); I26.99 Other pulmonary embolism without acute cor pulmonale; U07.1 COVID-19; J44.1 Chronic obstructive pulmonary disease with (acute) exacerbation; J45.901 Unspecified asthma with (acute) exacerbation; R06.03 Acute respiratory distress; I48.0 Paroxysmal atrial fibrillation; I10 Essential (primary) hypertension; Z87.891 Personal history of nicotine dependence
CPT/HCPCS: 36415; 71045; 71275; 80048; 80053; 81001; 82550; 83605; 83690; 83880; 84145; 84484; 85025; 85027; 87633; 93005; 93306; 93971; 94640; 94760; 94762; 97162; 97530; 99284; 99285; J2543; J7613; Q9967

== ENCOUNTER 2023-06-22 12:11 | Emergency (ER) | payer MEDICARE, OTHER, SELFPAY ==
[2023-05-21 11:22] VITALS: BMI 20.7
[2023-06-22] VITALS (15 sets, daily range): BP systolic 143–210; BP diastolic 87–105; PULSE 47–105; RESP 16–26; TEMP 37.2; O2SAT 91–97; BMI 22.2
--- NOTE | 2023-06-22 12:37 | DI.RAD.S_ITS ---
PROCEDURE: XR CHEST 1V INDICATIONS: chest pain TECHNIQUE: One view of the chest was acquired. COMPARISON: [facility], CR, XR CHEST 1V, 05/21/2023, 7:34. FINDINGS: Surgical changes and devices: None. Lungs and pleura: [id number] bilateral effusions with superimposed opacities in the bases bilaterally. Mediastinum: Mediastinal contours appear normal. Heart size is enlarged. Bones and chest wall: No suspicious bony lesions. Overlying soft tissues appear unremarkable. IMPRESSION: Bilateral effusions. Superimposed opacities may represent edema versus pneumonia. Dictated by: Elmira Christy M.D. on 06/22/2023 at 13:28 Approved by: Elmira Christy M.D. on 06/22/2023 at 13:28
--- NOTE | 2023-06-22 12:52 | ED.GENADULT ---
HPI - General Adult General Chief complaint: Hypertension Stated complaint: Hypertension Time Seen by Provider: 06/22/23 12:32 Source: patient and EMS Mode of arrival: EMS History of Present Illness HPI narrative: Patient is a 68-year-old male. History of atrial flutter. Has had ablation. Also has a history of hypertension. Was seen here several months ago and was admitted to the hospital for COVID-19. He found that his heart rate was in the 30s. He was taken off of his HCTZ and amlodipine and also his flecainide. He is still on atenolol and lisinopril for blood pressure. He states that his resting heart rate then went into the 70s. He had an initial appointment with his primary doctor today. He was found to be hypertensive. He mentioned that he was having ?floaters? in his eyes that started last week. No headache. He has a occasional balance issues. No abdominal pain. No chest pain. No palpitations. No shortness of breath or fevers. He was sent to the emergency department because of his high blood pressure and vision changes. Related Data Home Medications Medication Instructions Recorded Confirmed atorvastatin 20 mg tablet (Lipitor) 20 mg PO DAILY ##0 03/21/17 05/21/23 gabapentin 300 mg capsule 300 mg PO TID ##0 03/21/17 05/21/23 (Neurontin) Previous Rx's Medication Instructions Recorded hydrocodone 5 mg-acetaminophen 325 See Rx Instructions .Route 06/28/18 mg tablet .COMPLEX PRN Pain, Severe (7-10) #25 tabs atenolol 25 mg tablet 25 mg PO DAILY 90 days #90 tabs 05/15/23 lisinopril 20 mg tablet 20 mg PO DAILY 90 days #90 tabs 05/15/23 albuterol sulfate 90 mcg/actuation 1 inh inhalation QID PRN shortness 05/23/23 aerosol inhaler of breath or wheezing #8.5 grams apixaban 5 mg tablet See Rx Instructions .Route 05/23/23 .COMPLEX 90 days #192 tabs Allergies Allergy/AdvReac Type Severity Reaction Status Date / Time No Known Drug Allergies Allergy Verified 06/27/18 13:39 Review of Systems Review of Systems ROS Unobtainable: All systems reviewed & are unremarkable except as noted in HPI and below Patient History Medical History Sleep apnea with use of continuous positive airway pressure (CPAP) HTN (hypertension) Chronic thoracic back pain Left anterior fascicular block (LAFB) Prolonged HI interval LBBB (left bundle branch block) Chest pain Afib Atrial flutter Surgical History Status post cataract extraction of both eyes with insertion of intraocular lens History of vasectomy Status post left rotator cuff repair Status post right rotator cuff repair H/O right inguinal hernia repair History of appendectomy History of toe surgery S/P wrist surgery No pertinent past surgical history Social History household members: spouse and children Smoking Status: Former smoker alcohol intake: current Smoking Status: Former smoker tobacco type: cigarettes alcohol intake frequency: holidays/special occasions only Substance Use Type: marijuana Exam Initial Vital Signs Initial Vital Signs: Vital Signs Temperature 98.9 F 06/22/23 12:17 Pulse Rate 66 06/22/23 12:17 Respiratory Rate 20 06/22/23 12:17 Blood Pressure 183/91 H 06/22/23 12:17 Pulse Oximetry 97 06/22/23 12:17 Oxygen Delivery Method Room Air 06/22/23 12:17 Const General: cooperative, comfortable and No ill appearing HENMT Head: normal to inspection and normocephalic Eyes General: Yes appearance normal, both eyes and all related structures Resp Effort & Inspection: normal respiratory effort Auscultation: clear to auscultation bilaterally Cardio Rate: regular rate Rhythm: regular rhythm GI Inspection: normal to inspection and non-distended Skin General: no rashes or lesions noted Neuro General: patient alert, patient awake, patient oriented x3 and moves all extremities Cognition: normal cognition Speech: speech normal Extrem General: normal to inspection and capillary refill normal Course Orders Ordered: ED Orders 06/22/23 12:34 EKG-12 Lead Stat 06/22/23 12:37 XR chest 1V Stat 06/22/23 12:53 CT head/brain wo con Stat 06/22/23 13:15 Complete Blood Count AUTO DIFF Stat Comprehensive Metabolic Panel Stat Lipase Stat Magnesium Stat PTT Partial Thromboplastin Sea Stat Prothrombin Time INR Stat Troponin & CK Cardiac Panel Stat Discontinued Medications Aspirin (Aspirin 81 Mg Chew Tab) 324 mg PO NOW ONE Stop: 06/22/23 12:38 Last Admin: 06/22/23 13:24 Dose: Not Given Documented By: MICHAEL Vital Signs Vital signs: Vital Signs - 8 hr 06/22/23 12:17 06/22/23 12:45 06/22/23 12:46 Temperature 98.9 F Pulse Rate 66 52 L Respiratory Rate 20 Blood Pressure 183/91 H 185/100 H Pulse Oximetry 97 95 Oxygen Delivery Method Room Air 06/22/23 12:46 06/22/23 13:00 06/22/23 13:28 Temperature Pulse Rate 52 L 56 L Respiratory Rate 19 Blood Pressure 198/105 H Pulse Oximetry 94 96 Oxygen Delivery Method Room Air 06/22/23 13:28 06/22/23 13:29 06/22/23 13:30 Temperature Pulse Rate 69 66 Respiratory Rate 18 17 Blood Pressure 210/92 H Pulse Oximetry 97 97 Oxygen Delivery Method Room Air 06/22/23 13:30 06/22/23 13:39 06/22/23 13:40 Temperature Pulse Rate 49 L 73 Respiratory Rate 16 22 Blood Pressure 200/103 H Pulse Oximetry 97 94 Oxygen Delivery Method 06/22/23 13:40 06/22/23 14:01 06/22/23 14:34 Temperature Pulse Rate 61 69 105 H Respiratory Rate 20 23 Blood Pressure Pulse Oximetry 96 97 Oxygen Delivery Method Room Air Room Air 06/22/23 15:00 06/22/23 16:01 06/22/23 16:30 Temperature Pulse Rate 68 47 L 61 Respiratory Rate 26 H 22 Blood Pressure Pulse Oximetry 97 91 97 Oxygen Delivery Method Room Air 06/22/23 16:48 Temperature Pulse Rate Respiratory Rate Blood Pressure 143/87 H Pulse Oximetry Oxygen Delivery Method Medical Decision Making Lab Data Lab results reviewed: Yes I reviewed the patient's lab results. 06/22/23 13:15 06/22/23 13:15 Labs: Lab Results 06/22/23 Range/Units 13:15 WBC 8.7 (4.5-11.0) X10^3/uL RBC 4.70 (4.5-5.9) X10^6/uL Hgb 14.4 (13.5-17.5) g/dL Hct 42.5 (41-53) % MCV 90.3 (80-100) fL MCH 30.7 (26-34) PG MCHC 34.0 (30-36) % RDW 15.6 H (11.6-14.8) % Plt Count 243 (150-400) X10^3/uL Neut % (Auto) 75.0 (50-75) % Lymph % (Auto) 15.0 L (25-40) % Cross % (Auto) 8.3 (3-14) % Eos % (Auto) 1.3 L (2-4) % Baso % (Auto) 0.4 (0-2) % Neut # (Auto) 6500 (7917-9796) /uL Lymph # (Auto) 1300 (8759-7936) /uL Cross # (Auto) 700 (0-900) /uL Eos # (Auto) 100 (0-450) /uL Baso # (Auto) 0 (0-100) /uL PT 15.1 H (9.4-12.5) SECONDS INR 1.3 (0.9-1.3) APTT 36 (25.1-36.5) SECONDS Sodium 135 L (137-145) mmol/L Potassium 4.0 (3.4-5.1) mmol/L Chloride 102 (98-107) mmol/L Carbon Dioxide 24 (22-32) mmol/L BUN 20 (9-20) mg/dL Creatinine 0.67 (0.66-1.25) mg/dL Estimated GFR > 60 (>60) mL/min BUN/Creatinine Ratio 29.9 H (6-22) Glucose 83 (80-110) mg/dL Calcium 9.2 (8.4-10.2) mg/dL Magnesium 1.9 (1.6-2.3) mg/dL Total Bilirubin 0.9 (0.2-1.3) mg/dL AST TNP ALT 16 (<50) IU/L Alkaline Phosphatase 93 (38-126) U/L Total Creatine Kinase 160 (55-170) U/L Troponin I 0.015 (0.01-0.034) ng/mL Total Protein 7.3 (6.3-8.2) g/dL Albumin 3.7 (3.5-5.0) g/dL Globulin 3.6 (1.7-4.1) g/dL Albumin/Globulin Ratio 1.0 (1.0-2.8) Lipase 115 (23-300) U/L Urine Dip Bedside Urine Glucose Negative Bedside Urine Bilirubin - Negative Bedside Urine Ketone - Negative Urine Specific [place] 1.010 Bedside Urine Occult Blood - Negative Bedside Urine pH 7.0 Bedside Urine Protein - Negative Bedside Urine Urobilinogen - Negative Bedside Urine Nitrite - Negative Bedside Urine Leukocytes - Negative Esterase Point of care testing: Urine Dip Bedside Urine Glucose Negative Bedside Urine Bilirubin - Negative Bedside Urine Ketone - Negative Urine Specific [place] 1.010 Bedside Urine Occult Blood - Negative Bedside Urine pH 7.0 Bedside Urine Protein - Negative Bedside Urine Urobilinogen - Negative Bedside Urine Nitrite - Negative Bedside Urine Leukocytes - Negative Esterase Imaging Data Chest x-ray: Radiologist's Impression: PROCEDURE: XR CHEST 1V INDICATIONS: chest pain TECHNIQUE: One view of the chest was acquired. COMPARISON: [facility], , XR CHEST 1V, 05/21/2023, 7:34. FINDINGS: Surgical changes and devices: None. Lungs and pleura: [id number] bilateral effusions with superimposed opacities in the bases bilaterally. Mediastinum: Mediastinal contours appear normal. Heart size is enlarged. Bones and chest wall: No suspicious bony lesions. Overlying soft tissues appear unremarkable. IMPRESSION: Bilateral effusions. Superimposed opacities may represent edema versus pneumonia. CT scan - head: Radiologist's Impression: PROCEDURE: CT HEAD/BRAIN WO CON INDICATIONS: HTN and vision changes TECHNIQUE: Noncontrast 4.5 mm thick angled axial sections acquired from the foramen magnum to the vertex, with coronal and sagittal reformats. For radiation dose reduction, the following was used: automated exposure control, adjustment of mA and/or kV according to patient size. COMPARISON: None. FINDINGS: Image quality: Diagnostic. CSF spaces: Basal cisterns are patent. No extra-axial fluid collections. The ventricles are symmetric in size and shape. Brain: No intracranial bleeds or masses. There is cerebral volume loss for age, with resultant ventricular and sulcal prominence. There are periventricular and deep white matter chronic small vessel ischemic changes. There is intracranial internal carotid artery atherosclerosis. Skull and face: Calvarium and visualized facial bones appear intact, without suspicious lesions. Sinuses: Small amount of right maxillary sinus fluid. IMPRESSION: 1. No acute intracranial abnormality. 2. Right maxillary sinusitis. ECG Data Attestation: I personally reviewed and interpreted this ECG as follows: Interpretation: Sinus rhythm Ventricular rate of 50 Second-degree AV block type [address] No [address] T wave changes Similar to EKG dated 05/13/2023 [facility] Narrative Medical decision making narrative: Patient is hypertensive however his primary doctor has written a prescription for him to restart his amlodipine and hydrochlorothiazide. He will pick this up tomorrow and start taking it. His head CT is unremarkable. He ambulated around the emergency department. He did have heart rhythm that seemed to be very erratic. His EKG today shows a type 1 [place] which is the same as EKGs when he has been here in the past. He walked around the emergency department without any dizziness or chest pain or shortness of breath. Labs are unremarkable. Plan will be to discharge patient home to have him take his new blood pressure medication. We discussed how he should take his blood pressure at home and record the values. Discussed specific return precautions. He expressed understanding and agreement. Discharge Plan Departure Patient Disposition: Home Clinical Impression: Hypertension, Visual changes Instructions: DI for High Blood Pressure Activity Restrictions/Additional Instructions: Continue to take all of your medications as directed and start the new blood pressure medications that were prescribed by your primary doctor today. Take your blood pressure at home and right the values down like we discussed. Return to the emergency department for new symptoms. Prescriptions: No Action atorvastatin [Lipitor] 20 MG tablet 20 mg PO DAILY Qty: 0 gabapentin [Neurontin] 300 MG capsule 300 mg PO TID Qty: 0 hydrocodone-acetaminophen 5-325 mg Tablet See Rx Instructions .ROUTE .COMPLEX PRN (Reason: Pain, Severe (7-10)) Qty: 25 0RF Rx Instructions: 1-2 PO q4h prn pain atenolol 25 mg Tablet 25 mg PO DAILY 90 Days Qty: 90 0RF lisinopril 20 mg tablet 20 mg PO DAILY 90 Days Qty: 90 0RF apixaban 5 mg tablet See Rx Instructions .ROUTE .COMPLEX 90 Days Qty: 192 0RF Rx Instructions: take 10 mg BID for 6 days, followed by 5 mg BID for 84 days. albuterol sulfate 90 mcg/actuation HFA aerosol inhaler 1 inh inhalation QID PRN (Reason: shortness of breath or wheezing) Qty: 8.5 0RF Referrals: Pradeep Gardner MD [Primary Care Provider] - Stand Alone Forms: Patient Portal/API
[2023-06-22 13:40] LABS: INR 1.3 (0.9-1.3); Prothrombin Time 15.1 SECONDS (9.4-12.5)
[2023-06-22 13:43] LABS: PTT Partial Thromboplastin Tim 36 SECONDS (25.1-36.5)
[2023-06-22 13:50] LABS: Add Manual Diff / Slide Review NO; Alanine Aminotransferase 16 IU/L (<50); Albumin 3.7 g/dL (3.5-5.0); Alkaline Phosphatase 93 U/L (38-126); BUN Creatinine Ratio 29.9 (6-22); Basophils Absolute Auto 0 /uL (0-100); Basophils Percent Auto 0.4 % (0-2); Bilirubin Total 0.9 mg/dL (0.2-1.3); Blood Urea Nitrogen 20 mg/dL (9-20); Calcium 9.2 mg/dL (8.4-10.2); Carbon Dioxide 24 mmol/L (22-32); Chloride 102 mmol/L (98-107); Creatine Kinase 160 U/L (55-170); Eosinophils Absolute Auto 100 /uL (0-450); Eosinophils Percent Auto 1.3 % (2-4); Estimated Glomerular Filt Rate > 60 mL/min (>60); Globulin 3.6 g/dL (1.7-4.1); Glucose 83 mg/dL (80-110); Hematocrit 42.5 % (41-53); Hemoglobin 14.4 g/dL (13.5-17.5); Lipase 115 U/L (23-300); Lymphocytes Absolute Auto 1300 /uL (1100-4500); Magnesium 1.9 mg/dL (1.6-2.3); Mean Corpuscular Hemoglobin 30.7 PG (26-34); Mean Corpuscular Volume 90.3 fL (80-100); Monocytes Absolute Auto 700 /uL (0-900); Monocytes Percent Auto 8.3 % (3-14); Neutrophils Absolute Auto 6500 /uL (1500-7000); Platelet Count 243 X10^3/uL (150-400); Red Cell Distribution Width 15.6 % (11.6-14.8); Sodium 135 mmol/L (137-145); Total Protein 7.3 g/dL (6.3-8.2); White Blood Cell Count 8.7 X10^3/uL (4.5-11.0)
[2023-06-22 14:01] LABS: Troponin I 0.015 ng/mL (0.01-0.034)
--- NOTE | 2023-06-22 14:24 | PC.NURSE ---
Pt denies SOB, Chest pain, headache or lightheadedness. He mentions history of afib with 2x ablations (last one over 10 years ago) bradycardia and being removed from some medications which has increased my heart rate to the 70's. Pt complains of chronic back and left big toe pain, but no new pain today. Pt's heart rate in the 30's (see vitals) but is denying having any symptoms.
--- NOTE | 2023-06-22 14:44 | PC.NURSE ---
Pt's heart rate drops to 36-46bpm. Pt is assessed and denies having any symptoms such as SOB, chest pain, dizziness/lightheaded, or weakness. Pt states I feel fine!. Dr Lemus denies need to put patient on pacer pads at this time.
--- NOTE | 2023-06-22 16:05 | PC.NURSE ---
Pt did well ambulating around the department. HR 92, SPO2 90%-94% on RA. Reports no distress
[2023-06-24 15:59] LABS: Aspartate Aminotransferase 29 IU/L (17-59); HEMOLYSIS 32 (0-50)
== END 2023-06-22 16:49 | disposition home or self-care (01) ==
PROVIDERS: Emergency Provider Emergency Medicine; PCP Family Medicine
DX: I10 Essential (primary) hypertension (principal); H53.9 Unspecified visual disturbance; R07.9 Chest pain, unspecified; Z86.16 Personal history of COVID-19; Z79.899 Other long term (current) drug therapy
CPT/HCPCS: 36415; 70450; 71045; 80053; 81003; 82550; 83690; 83735; 84484; 85025; 85610; 85730; 93005; 99284

== ENCOUNTER → 2023-07-19 09:36 | Outpatient (CLI) | payer MEDICARE, OTHER, SELFPAY ==
[2023-05-21 11:22] VITALS: BMI 20.7
== END ==
PROVIDERS: PCP Nurse Practitioner Family; Referring Provider Nurse Practitioner Family; Visit Provider Nurse Practitioner Family
DX: R06.02 Shortness of breath (principal); F17.210 Nicotine dependence, cigarettes, uncomplicated; J98.8 Other specified respiratory disorders
CPT/HCPCS: 94060; 94726; 94729

== ENCOUNTER → 2023-08-04 06:23 | Outpatient (CLI) | payer MEDICARE, OTHER, SELFPAY ==
[2023-05-21 11:22] VITALS: BMI 20.7
--- NOTE | 2023-08-04 06:25 | DI.ECHO.S_ITS ---
[facility] +---------+ [facility] +---------+ : : [address] : [place] : : : : [id number] : : : : Phone: [phone]+ Echocardiogram Report + + :Name: HEDY PRADO Study Date: 08/04/2023 Height: 70 in : :[facility] ReadingLocation: Weight: 150 lb : : Gender: Male BSA: 1.8 m2 : :: 1955 Age: 68 yrs BP: 162/79 mmHg: :Reason For Study: ABNORMAL EKG : : Performed By: Mohsen Jordan : :Referring: ZULY THOMSON : + + Interpretation Summary 1) Normal left ventricular thickness, size, wall motion, and systolic function (EF 55-60%). 2) Normal right ventricular size with low normal function. 3) Aortic valve is calcific but has no stenosis or regurgitation. 4) Compared to the echo done 05/22/2023, no significant change. Procedure: A two-dimensional transthoracic echocardiogram with color flow and Doppler was performed. The study quality was technically adequate. Comparison is made with the echocardiogram of 05/22/23. The heart rate ranged between 60-92 bpm during the study. Left Ventricle: The left ventricle is normal in size and wall thickness. The ejection fraction is estimated to be 55-60%. Left ventricular systolic function appears normal without focal wall motion abnormalities. Diastolic parameters suggest a relaxation abnormality of the left ventricle, consistent with probable normal filling pressures. Right Ventricle: The right ventricle is normal in size and function. Atria: The left atrium is moderately dilated. The right atrium is mildly dilated. Mitral Valve: The mitral valve is normal in structure and function. There is no mitral valve stenosis. There is trace mitral regurgitation. Aortic Valve: The aortic valve is trileaflet. There is moderate aortic valve sclerosis. There is no aortic valve stenosis. No aortic regurgitation is present. Tricuspid Valve: The tricuspid valve is normal. There is no tricuspid stenosis. No tricuspid regurgitation. Pulmonary artery pressures cannot be estimated because of the lack of a measurable TR jet velocity. Pulmonic Valve: The pulmonic valve is normal in structure and function. There is no pulmonic valvular stenosis. There is no pulmonic valvular regurgitation. Great Vessels: The aortic root is normal size. The ascending aorta could not be visualized. The inferior vena cava was not visualized. Pericardium/ Pleura There is no pericardial effusion. There is no pleural effusion. MMode/2D Measurements & Calculations LVIDd: 4.4 cm LVOT diam: 1.9 cm LVIDs: 2.6 cm Ao root diam: 3.2 cm FS: 39.7 % IVSd: 1.2 cm LVPWd: 1.1 cm LV morgan. diameter/BSA (cm/m^2): 2.4 LV sys. diameter/BSA (cm/m^2): 1.4 LA A2 area: 22.9 cm2 RA long axis: 5.4 cm LA A4 area: 21.2 cm2 RA area: 21.6 cm2 LA length (vol): 6.1 cm RA vol: 74.1 ml LA vol: 67.8 ml RA : 40.1 ml/m2 LA vol index: 36.7 ml/m2 IVC diam: 1.5 cm RVD1 (basal): 4.5 cm RVD2 (mid): 3.7 cm TAPSE: 2.2 cm Doppler Measurements & Calculations Ao V2 max: 180.0 cm/sec LVOT Max Chandrakant: 131.4 cm/sec Ao V2 mean: 129.6 cm/sec LV V1 max P.0 mmHg Ao max P.0 mmHg LV V1 VTI: 30.7 cm Ao mean P.4 mmHg SHEILA(I,D): 2.3 cm2 Ao V2 VTI: 38.2 cm SHEILA(V,D): 2.1 cm2 sev ratio: 0.80 SHEILA indexed to BSA (cm^2/m^2): 1.2 MV E max chandrakant: 111.3 cm/sec PA V2 max: 106.9 cm/sec MV A max chandrakant: 23.3 cm/sec PA V2 mean: 78.2 cm/sec MV E/A: 4.8 PA mean P.7 mmHg Med Peak E' Chandrakant: 16.3 cm/sec PA pr(Accel): 44.7 mmHg E/E' med: 6.8 Lat Peak E' Chandrakant: 17.2 cm/sec E/E' lat: 6.5 E/e' average: 6.7 MV dec time: 0.14 sec SV(LVALIA): 87.7 ml Reading Physician:11:03 AM
== END ==
LOC: ECHO 06:24
PROVIDERS: PCP Nurse Practitioner Family; Referring Provider Nurse Practitioner Family; Visit Provider Nurse Practitioner Family
DX: R94.31 Abnormal electrocardiogram [ECG] [EKG] (principal); I35.8 Other nonrheumatic aortic valve disorders
CPT/HCPCS: 93306